=== PATIENT | female | born 1945 | race Caucasian/White ===

== ENCOUNTER 2023-07-22 08:53 | Outpatient (AMB) | payer MEDICARE, SELFPAY ==
--- NOTE | 2023-07-22 08:57 | A.OFFVIS_ITS ---
Intake Vital Signs 3 07/22/23 09:00 Height 5 ft Weight 134 lb BMI 26.2 BP 118/68 Blood Pressure Location Rt brachial Position Sitting Pulse 77 Pulse Source Pulse Oximeter Pulse Oximetry (%) 97 Intake Visit Reasons: Shortness of breath on exertion Medical Facilities Section Director Required: No Robotic Machine Tender Production: Robotic Machine Tender Production offered & declined Accompanied by: Daughter Allergies No Known Allergies Allergy (Verified 07/22/23 09:05) Medication List - Last Reconciled 07/22/23 by Kassandra Tapia LPN amlodipine 10 mg PO DAILY aspirin (Adult Low Dose Aspirin) 81 mg PO DAILY azelastine 1 spray intranasal BID cholecalciferol (vitamin D3) 25 mcg PO DAILY citalopram 40 mg PO DAILY losartan 100 mg PO DAILY wejetaunldhm-lmpglbeu-segpmd 1 tab PO DAILY HPI Shortness of breath on exertion 2 HPI0 Details Lesly is a pleasant 78 year old female, former minimal smoker with less than 2 pack year history, with underlying raynaud's, chronic hoarseness, dysphagia, and anxiety. She was referred by PCP for pulmonary evaluation. She reports chronic dry cough with hoarseness for the past two years. She also reports choking with eating. She has been evaluated by ENT and GI, with unremarkable workup, including MBSS. She has been trialing PPIs with minimal improvement in symptoms. She does continue to report heartburn, sour taste and regurgitation, however reports infrequent. She also reports dyspnea on exertion with occasional wheezing. She is not on any respiratory medications. Recent CXR revealed LLL atelectasis, report below. She denies any pertinent family history. She denies any occupational exposures. She denies any allergies. She denies post nasal drip. [facility] Social History (Updated 07/22/23 @ 09:08 by Kassandra Tapia LPN) Patient Tobacco Use Status: Never used Tobacco Review of Systems Const Denies chills, Denies excessive sweating, Denies fever(s), Denies headache(s) and Denies night sweats Eyes Denies dry eyes, Denies irritation and Denies itchy eyes ENT Reports Normal hearing present and Denies headache(s) Card Denies chest pain, Denies chest pain at rest, Denies chest pain with activity, Denies claudication, Denies leg edema, Reports dyspnea, Reports dyspnea on exertion, Denies orthopnea and Denies paroxysmal nocturnal dyspnea Resp Denies change in phlegm color, Denies chest congestion, Reports cough, Denies excessive phlegm production, Denies pain on inspiration, Denies pain with cough, Reports dyspnea, Reports dyspnea on exertion, Denies stridor and Denies wheezing Musc Denies myalgias Neuro Reports Normal hearing present and Denies headache(s) Endo Denies excessive sweating Jason/Lymph Denies lymphadenopathy Aller/Immun Denies itchy eyes, Denies seasonal rhinorrhea and Denies wheezing Physical Exam Vital Signs: Last Vital Signs Pulse 77 07/22/23 09:00 BP 118/68 07/22/23 09:00 Pulse Ox 97 07/22/23 09:00 BMI result Body Mass Index 26.2 Const Other: hoarse voice General: cooperative, healthy appearing, comfortable, no acute distress, well developed and alert Orientation/consciousness: patient oriented x3 Limitations: no limitations HEENT Head: Yes normal to inspection, Yes normocephalic and Yes atraumatic Ears: hearing grossly normal bilaterally and external ears normal Eyes General: appearance normal, both eyes and all related structures Eyelids: Yes eyelids normal Sclerae: sclerae normal EOM: EOMs intact bilaterally Neck Neck: Yes normal visual inspection and Yes no lymphadenopathy Lymphatic: no lymphadenopathy noted Chest Chest palpation & inspection: normal inspection of the chest Resp Effort & Inspection: normal respiratory effort, able to speak in complete sentences, no audible wheezes, Actively coughing Quality: dry, no stridor, not tachypneic, no tripod positioning and no use of accessory muscles Auscultation: rhonchi and wheezes Cardio Jugular venous distension: no JVD Rate: regular rate Rhythm: regular rhythm Skin Other: warm, dry General skin exam: no rashes or lesions noted Neuro General: patient oriented x3 Cranial nerves: Yes Normal hearing present Cognition (Neuro): normal cognition Gait exam (Neuro): Normal gait present Extrem General: Yes normal to inspection, Yes capillary refill normal, Yes no clubbing, cyanosis or edema and Yes no pedal edema Psych Appearance: grossly normal and well kempt Speech and movement: Normal speech and movement present and Clear speech present Affect: normal affect Attitude: cooperative Thought process: Normal thought process present Thought content: Normal thought content present Insight: Good insight present (Psych) Judgement: Good judgement present (Psych) Office Procedures Nebulizer Treatment Nebulizer Treatment [id number]/MDI RX initial, or Nebulizer Subsequent Treatment Office Meds ipratropium 0.5 mg-albuterol 3 mg (2.5 mg base)/3 mL nebulization noe Performing Provider: Donna Domingo NP Performing Location: [facility] [place] [facility] Administered by: Kassandra Tapia LPN on 07/22/23 09:35 2 Dose Route Admin Location Dispensed Lot Number Expiration Date [facility] Dyno Technician 3 mL inhalation 3 mL [id number] 03/07/25 64322-206-44 Open Learning Results Reviewed Results Reviewed: Assessment & Plan Assessment & Plan (1) Chronic cough: Code(s): R05.3 - Chronic cough (2) Dyspnea on exertion: Code(s): R06.09 - Other forms of dyspnea Plan Lesly's symptoms are likely multifactorial with pulmonary and GI etiologies. Will send for PFT and chest CT to thoroughly evaluate chronic cough and dyspnea. On exam, moderate wheezing and rhonchi appreciated. Mildly improved with nebulizer in office. Will send doxycycline and prednisone today. She is aware to call if symptoms do not improve. Will also empirically trial Breo. Reviewed importance of good oral hygiene. All questions were answered and patient is in agreement of plan. Orders: Orders 2 AMB Nebulizer Treatment Today R05.3 - Chronic cough Medications: New 2 doxycycline hyclate 100 mg PO BID 20 caps 0RF albuterol sulfate 90 mcg/actuation 2 puffs inhalation Q4-6H PRN 1 ea 3RF shortness of breath or wheezing inhalational spacing device (Space Chamber) As directed 1 ea 0RF fluticasone furoate-vilanterol 100-25 mcg/dose (Breo Ellipta) 1 inh inhalation DAILY 60 ea 3RF prednisone 40 mg (2 x 20 mg) PO DAILY 10 tabs 0RF Coding Level of Care Code New Pt Level 4 (18190) Diagnoses Chronic cough R05.3 Dyspnea on exertion R06.09 CPT Codes Nebulizer Treatment - Nebulizer Treatment, initial or subsequent: 29813- Nebulizer/MDI RX initial, or Nebulizer Subsequent Treatment ([id number])
[2023-07-22 09:00] VITALS: BP 118/68; PULSE 77; O2SAT 97; BMI 26.2
== END 2023-07-22 10:12 | disposition home or self-care (01) ==
PROVIDERS: PCP Family Medicine; Visit Provider Nurse Practitioner Family
DX: R05.3 Chronic cough (principal); R06.09 Other forms of dyspnea
CPT/HCPCS: 99204

== ENCOUNTER → 2023-07-22 08:53 | Outpatient (BNVA) | payer MEDICARE, SELFPAY | PROVIDERS: PCP Family Medicine; Visit Provider Nurse Practitioner Family | DX: R05.3 Chronic cough (principal); R06.09 Other forms of dyspnea | CPT/HCPCS: 94640; 99202 ==

== ENCOUNTER 2023-08-11 08:42 | Outpatient (REF) | payer MEDICARE, SELFPAY ==
[2023-08-11 07:32] VITALS: PULSE 68; RESP 16; O2SAT 96
--- NOTE | 2023-08-11 16:34 | PFT_ITS ---
Flows: FEV1: 83 % of predicted at 1.47 L FVC: 103 % of predicted at 2.37 L FEV1/FVC: 62 % Bronchodilator response: Absent Volumes: No lung volumes measurements available secondary to a technical issue. Diffusion capacity: Mildly decreased Impression: Mild obstructive ventilatory defect with no bronchodilator response. No lung volumes measurements available secondary to a technical issue. Decreased diffusion capacity suggests emphysema. MTDD
== END 2023-08-11 08:43 | disposition home or self-care (01) ==
LOC: HO.RESP 08:42
PROVIDERS: PCP Family Medicine; Visit Provider Nurse Practitioner Family
DX: R06.09 Other forms of dyspnea (principal)
CPT/HCPCS: 94010; 94640; 94727; 94729

== ENCOUNTER → 2023-08-11 16:34 | Outpatient (BNV) | payer MEDICARE, SELFPAY | PROVIDERS: PCP Family Medicine; Visit Provider Internal Medicine Pulmonary Disease | DX: R06.09 Other forms of dyspnea (principal) | CPT/HCPCS: 94060; 94729 ==

== ENCOUNTER 2023-09-02 09:45 | Outpatient (AMB) | payer MEDICARE, SELFPAY ==
--- NOTE | 2023-09-02 09:41 | MHC.OFFVIS ---
Intake Vital Signs 09/02/23 09:48 Height 5 ft Weight 138 lb BMI 26.9 BP 124/64 Blood Pressure Location Rt brachial Position Sitting Pulse 75 Pulse Source Pulse Oximeter Pulse Oximetry (%) 97 Oxygen Delivery Method Room Air Intake Visit Reasons: Shortness of breath Database Admin Required: No Folder And Notcher: Folder And Notcher offered & declined Accompanied by: Daughter Allergies No Known Allergies Allergy (Verified 09/02/23 09:54) Medication List - Last Reconciled 09/02/23 by Kassandra Tapia LPN albuterol sulfate 90 mcg/actuation 2 puffs inhalation Q4-6H PRN amlodipine 10 mg PO DAILY aspirin (Adult Low Dose Aspirin) 81 mg PO DAILY azelastine 1 spray intranasal BID cholecalciferol (vitamin D3) 25 mcg PO DAILY citalopram 40 mg PO DAILY fluticasone furoate-vilanterol 100-25 mcg/dose (Breo Ellipta) 1 inh inhalation DAILY inhalational spacing device (Space Chamber) As directed losartan 100 mg PO DAILY xmvqzfulxcdo-rtmrfszo-uoljwg 1 tab PO DAILY HPI Shortness of breath HPI Details Lesly is a pleasant 78 year old female, former minimal smoker with less than 2 pack year history, with underlying raynaud's, chronic hoarseness, dysphagia, and anxiety. She reports chronic dry cough with hoarseness for the past two years. She also reports choking with eating. She has been evaluated by ENT and GI, with unremarkable workup, including MBSS. She has been trialing PPIs with minimal improvement in symptoms. She also reports dyspnea on exertion with occasional wheezing. At the last visit, she was given doxycycline and prednisone for bronchitic symptoms. She was also started on Breo. Today she presents to review PFT and response to Breo. She reports significant improvement symptoms since doxycycline, no longer with productive cough. However she continues with wheezing and dyspnea. She has not started Breo as she wanted to wait for PFT results. She has also been evaluated by thoracic surgery for the moderate hernia found on prior imaging and has a follow-up in October to discuss possible surgical intervention. She has an appointment at the end of September for both chest and abdominal CT. [facility] Social History (Updated 09/02/23 @ 09:56 by Kassandra Tapia LPN) Patient Tobacco Use Status: Never used Tobacco Review of Systems Const Denies chills, Denies excessive sweating, Denies fever(s), Denies headache(s) and Denies night sweats Eyes Denies dry eyes, Denies irritation and Denies itchy eyes ENT Reports Normal hearing present, Denies headache(s), Denies nasal congestion, Denies nasal discharge, Denies post nasal drip and Denies sore throat Card Denies chest pain, Denies chest pain at rest, Denies chest pain with activity, Denies claudication, Denies leg edema, Denies orthopnea and Denies paroxysmal nocturnal dyspnea Resp Denies chest congestion, Denies excessive phlegm production, Denies pain on inspiration, Denies pain with cough and Denies stridor Musc Denies myalgias Neuro Reports Normal hearing present and Denies headache(s) Endo Denies excessive sweating Jason/Lymph Denies lymphadenopathy Aller/Immun Denies itchy eyes and Denies seasonal rhinorrhea Physical Exam Vital Signs: Last Vital Signs Pulse 75 09/02/23 09:48 BP 124/64 09/02/23 09:48 Pulse Ox 97 09/02/23 09:48 Oxygen Delivery Method Room Air 09/02/23 09:48 BMI result Body Mass Index 26.9 Const General: cooperative, healthy appearing, comfortable, no acute distress, well developed and alert Orientation/consciousness: patient oriented x3 Limitations: no limitations HEENT Head: Yes normal to inspection, Yes normocephalic and Yes atraumatic Ears: hearing grossly normal bilaterally and external ears normal Eyes General: appearance normal, both eyes and all related structures Eyelids: Yes eyelids normal Sclerae: sclerae normal EOM: EOMs intact bilaterally Neck Neck: Yes normal visual inspection and Yes no lymphadenopathy Lymphatic: no lymphadenopathy noted Chest Chest palpation & inspection: normal inspection of the chest Resp Other: rhonchi and faint expiratory wheezes throughout, improved with duoneb Effort & Inspection: normal respiratory effort, able to speak in complete sentences, no audible wheezes, no stridor, not tachypneic, no tripod positioning and no use of accessory muscles Cardio Jugular venous distension: no JVD Rate: regular rate Rhythm: regular rhythm Skin Other: warm, dry General skin exam: no rashes or lesions noted Neuro General: patient oriented x3 Cranial nerves: Yes Normal hearing present Cognition (Neuro): normal cognition Gait exam (Neuro): Normal gait present Extrem General: Yes normal to inspection, Yes capillary refill normal, Yes no clubbing, cyanosis or edema and Yes no pedal edema Psych Appearance: grossly normal and well kempt Speech and movement: Normal speech and movement present and Clear speech present Affect: normal affect Attitude: cooperative Thought process: Normal thought process present Thought content: Normal thought content present Insight: Good insight present (Psych) Judgement: Good judgement present (Psych) Office Procedures Nebulizer Treatment Nebulizer Treatment 62532-Veuaqwenl/MDI RX initial, or Nebulizer Subsequent Treatment Office Meds ipratropium 0.5 mg-albuterol 3 mg (2.5 mg base)/3 mL nebulization soln Performing Provider: Donna Domingo NP Performing Location: [facility] [place] [facility] Administered by: Kassandra Tapia LPN on 09/02/23 10:45 Dose Route Admin Location Dispensed Lot Number Expiration Date [employer] Supervisor 3 mL inhalation 3 mL [id number] 04/07/25 06288-340-62 IPexpert Assessment & Plan Assessment & Plan (1) COPD (chronic obstructive pulmonary disease): Code(s): J44.9 - Chronic obstructive pulmonary disease, unspecified (2) Chronic cough: Code(s): R05.3 - Chronic cough (3) Dyspnea on exertion: Code(s): R06.09 - Other forms of dyspnea Plan Reviewed PFT which revealed mild obstructive ventilatory defect with no bronchodilator response. No lung volumes measurements available secondary to a technical issue. Decreased diffusion capacity suggestive of emphysema. On exam, wheezing and rhonchi appreciated. Moderately improved with nebulizer in office. Will give nebulizer for home use. Will also send for CXR and prednisone today. She is aware to call if symptoms do not improve. All questions were answered and patient is in agreement of plan. Orders: Orders XR chest 2V Today R05.3 - Chronic cough AMB Nebulizer Treatment Today R05.3 - Chronic cough, R06.09 - Other forms of dyspnea Medications: New ipratropium-albuterol 0.5 mg-3 mg(2.5 mg base)/3 mL 3 mL inhalation BID PRN 90 mL 0RF wheezing prednisone see taper instructions; 40 mg Daily x3 days, 30 mg daily x3 days, 20 mg daily x3 days, 10 mg daily x3 days 10 mg PO DIRECTED 30 tabs 0RF Coding Level of Care Code Est Pt Level 4 (85931) Diagnoses COPD (chronic obstructive pulmonary disease) J44.9 Chronic cough R05.3 Dyspnea on exertion R06.09 CPT Codes Nebulizer Treatment - Nebulizer Treatment, initial or subsequent: 27371-Denkemgqu/MDI RX initial, or Nebulizer Subsequent Treatment ([id number])
[2023-09-02 09:48] VITALS: BP 124/64; PULSE 75; O2SAT 97; BMI 26.9
== END 2023-09-02 10:48 | disposition home or self-care (01) ==
PROVIDERS: PCP Family Medicine; Visit Provider Nurse Practitioner Family
DX: J44.9 Chronic obstructive pulmonary disease, unspecified (principal); R05.3 Chronic cough; R06.09 Other forms of dyspnea
CPT/HCPCS: 99214

== ENCOUNTER → 2023-09-02 09:45 | Outpatient (BNVA) | payer MEDICARE, SELFPAY | PROVIDERS: PCP Family Medicine; Visit Provider Nurse Practitioner Family | DX: J44.9 Chronic obstructive pulmonary disease, unspecified (principal); R05.3 Chronic cough; R06.09 Other forms of dyspnea | CPT/HCPCS: 94640; 99212 ==

== ENCOUNTER 2023-09-15 08:58 | Outpatient (AMB) | payer MEDICARE, SELFPAY ==
[2023-09-15 08:59] VITALS: BP 130/64; PULSE 79; O2SAT 98; BMI 27.3
--- NOTE | 2023-09-15 08:59 | A.OFFVIS_ITS ---
Intake Vital Signs 09/15/23 08:59 Height 5 ft Weight 140 lb BMI 27.3 BP 130/64 Blood Pressure Location Rt brachial Position Sitting Pulse 79 Pulse Oximetry (%) 98 Oxygen Delivery Method Room Air Intake Visit Reasons: shortness of breath Director Of In Service Education Required: No Engineering Systems Analyst: Engineering Systems Analyst offered & declined Accompanied by: Daughter Allergies No Known Allergies Allergy (Verified 09/15/23 09:04) Medication List - Last Reconciled 09/15/23 by Kassandra Tapia LPN albuterol sulfate 90 mcg/actuation 2 puffs inhalation Q4-6H PRN amlodipine 10 mg PO DAILY aspirin (Adult Low Dose Aspirin) 81 mg PO DAILY azelastine 1 spray intranasal BID cholecalciferol (vitamin D3) 25 mcg PO DAILY citalopram 40 mg PO DAILY fluticasone furoate-vilanterol 100-25 mcg/dose (Breo Ellipta) 1 inh inhalation DAILY inhalational spacing device (Space Chamber) As directed ipratropium-albuterol 0.5 mg-3 mg(2.5 mg base)/3 mL 3 mL inhalation BID PRN losartan 100 mg PO DAILY nsastalkoava-geuhibuq-gjyzjj 1 tab PO DAILY HPI shortness of breath HPI Details Lesly is a pleasant 78 year old female, former minimal smoker with less than 2 pack year history, with underlying raynaud's, chronic hoarseness, dysphagia, and anxiety. She reports chronic dry cough with hoarseness for the past two years. She also reports choking with eating. She has been evaluated by ENT and GI, with unremarkable workup, including MBSS. She has been trialing PPIs with minimal improvement in symptoms. At the last visit, patient with wheezing on exam and dyspnea. She was placed on prednisone as well as started Breo, reporting significant improvement in symptoms. Of note, she has also been evaluated by thoracic surgery for the moderate hernia found on prior imaging and has a follow-up in October to discuss possible surgical intervention. She has an appointment at the end of September for both chest and abdominal CT. [facility] Social History (Updated 09/15/23 @ 09:05 by Kassandra Tapia LPN) Patient Tobacco Use Status: Never used Tobacco Review of Systems Const Denies chills, Denies excessive sweating, Denies fever(s), Denies headache(s) and Denies night sweats Eyes Denies dry eyes, Denies irritation and Denies itchy eyes ENT Reports Normal hearing present, Denies headache(s), Denies nasal congestion, Denies nasal discharge, Denies post nasal drip and Denies sore throat Card Denies chest pain, Denies chest pain at rest, Denies chest pain with activity, Denies claudication, Denies leg edema, Denies dyspnea, Denies dyspnea on exertion, Denies orthopnea and Denies paroxysmal nocturnal dyspnea Resp Denies chest congestion, Denies cough, Denies excessive phlegm production, Denies pain on inspiration, Denies pain with cough, Denies dyspnea, Denies dyspnea on exertion, Denies stridor and Denies wheezing Musc Denies myalgias Neuro Reports Normal hearing present and Denies headache(s) Endo Denies excessive sweating Jason/Lymph Denies lymphadenopathy Aller/Immun Denies itchy eyes, Denies seasonal rhinorrhea and Denies wheezing Physical Exam Vital Signs: Last Vital Signs Pulse 79 09/15/23 08:59 BP 130/64 09/15/23 08:59 Pulse Ox 98 09/15/23 08:59 Oxygen Delivery Method Room Air 09/15/23 08:59 BMI result Body Mass Index 27.3 Const General: cooperative, healthy appearing, comfortable, no acute distress, well developed and alert Orientation/consciousness: patient oriented x3 Limitations: no limitations HEENT Head: Yes normal to inspection, Yes normocephalic and Yes atraumatic Ears: hearing grossly normal bilaterally and external ears normal Eyes General: appearance normal, both eyes and all related structures Eyelids: Yes eyelids normal Sclerae: sclerae normal EOM: EOMs intact bilaterally Neck Neck: Yes normal visual inspection and Yes no lymphadenopathy Lymphatic: no lymphadenopathy noted Chest Chest palpation & inspection: normal inspection of the chest Resp Effort & Inspection: normal respiratory effort, able to speak in complete sentences, no audible wheezes, no cough, no stridor, not tachypneic, no tripod p ositioning and no use of accessory muscles Auscultation: clear to auscultation bilaterally Cardio Jugular venous distension: no JVD Rate: regular rate Rhythm: regular rhythm Skin Other: warm, dry General skin exam: no rashes or lesions noted Neuro General: patient oriented x3 Cranial nerves: Yes Normal hearing present Cognition (Neuro): normal cognition Gait exam (Neuro): Normal gait present Extrem General: Yes normal to inspection, Yes capillary refill normal, Yes no clubbing, cyanosis or edema and Yes no pedal edema Psych Appearance: grossly normal and well kempt Speech and movement: Normal speech and movement present and Clear speech present Affect: normal affect Attitude: cooperative Thought process: Normal thought process present Thought content: Normal thought content present Insight: Good insight present (Psych) Judgement: Good judgement present (Psych) Assessment & Plan Assessment & Plan (1) COPD (chronic obstructive pulmonary disease): Code(s): J44.9 - Chronic obstructive pulmonary disease, unspecified (2) Chronic cough: Code(s): R05.3 - Chronic cough (3) Dyspnea on exertion: Code(s): R06.09 - Other forms of dyspnea Plan Lesly presents for close follow up, at last visit, rhonchi and wheezing appreciated with increased dyspnea. Patient was placed on prednisone and started Breo, reporting significant improvement in symptoms. She report using nebulizer infrequently since starting Breo. All questions were answered and patient is in agreement of plan. Will follow up in [address] results and continued response to Breo. Coding Level of Care Code Est Pt Level 3 (49159) Diagnoses COPD (chronic obstructive pulmonary disease) J44.9 Chronic cough R05.3 Dyspnea on exertion R06.09
== END 2023-09-15 09:19 | disposition home or self-care (01) ==
PROVIDERS: PCP Family Medicine; Visit Provider Nurse Practitioner Family
DX: J44.9 Chronic obstructive pulmonary disease, unspecified (principal); R05.3 Chronic cough; R06.09 Other forms of dyspnea
CPT/HCPCS: 99213

== ENCOUNTER → 2023-09-15 08:58 | Outpatient (BNVA) | payer MEDICARE, SELFPAY | PROVIDERS: PCP Family Medicine; Visit Provider Nurse Practitioner Family | DX: J44.9 Chronic obstructive pulmonary disease, unspecified (principal); R05.3 Chronic cough; R06.09 Other forms of dyspnea | CPT/HCPCS: 99212 ==

== ENCOUNTER 2023-10-06 07:57 | Outpatient (REF) | payer MEDICARE, SELFPAY ==
--- NOTE | ~2023-10-06 | CT_ITS ---
EXAMINATION: CT CHEST WITH CONTRAST CT ABDOMEN WITH CONTRAST CLINICAL INFORMATION: Paraesophageal hernia. COMPARISON: No pertinent prior studies are available for comparison. TECHNIQUE: Multidetector volumetric imaging was performed from the thoracic inlet through the iliac crests following administration of 65 mL of Omnipaque-350. Sagittal and coronal reformatted images were obtained on the technologist's workstation. This CT examination was performed using dose optimization techniques as appropriate, variously including the following: *Automated exposure control *Adjustment of mA and/or kV according to patient size (this includes techniques or standardized protocols for targeted exams where dose is matched to indication/reason for exam; i.e. extremities or head) *Use of iterative reconstruction technique DLP: 100.00 mGy-cm (Chest) 165.00 mGy-cm (Abdomen) FINDINGS: CHEST: Lungs: Some minimal emphysematous changes are present. Bronchial thickening is noted. Bibasilar atelectasis is present. Small perifissural right middle lobe lymph node is seen measuring 3 mm (5:80). No suspicious lung mass is seen. Mediastinum: The heart size is normal. The central vascular structures are unremarkable. No hilar or mediastinal lymphadenopathy. Hiatal hernia as described below. Coronary Artery Calcium: None. Pericardium/Pleura: No significant effusion. No pleural mass or thickening. Chest Wall/Axilla: Unremarkable ABDOMEN/PELVIS: Peritoneal Space: No significant free air or free fluid identified. Liver, Gallbladder, Biliary Tree: The liver is normal in size, shape, and attenuation. No focal hepatic lesion or biliary ductal dilatation is present. The gallbladder is unremarkable with no evidence of radiopaque gallstones, gallbladder wall thickening, or obvious pericholecystic inflammatory changes. Pancreas: Unremarkable. Spleen: Unremarkable. Adrenal Glands: Unremarkable. Kidneys and Ureters: The kidneys are normal in size, shape, and attenuation. No hydronephrosis, hydroureter, or calculi seen. No perinephric stranding. Multiple bilateral benign Bosniak class I renal cysts are noted, the largest measuring 5.1 cm at the left lower pole which require no additional imaging or follow-up. No solid renal masses are seen. Gastrointestinal Tract: There is a paraesophageal hiatal hernia present with the GE junction near the diaphragmatic hiatus. Precise location is not well seen because of lack of oral contrast media. The visualized small and large bowel are unremarkable. The appendix is none included on this study. Abdominal Wall: No significant hernia is appreciated. Lymph Nodes: Retroperitoneal lymphadenopathy. Some kamron changes are seen. Vascular: Calcific atherosclerotic changes are present in the aorta and iliac vessels. There is no evidence of an abdominal aortic aneurysm.. The IVC appears unremarkable. OSSEUS STRUCTURES: Marked degenerative changes are noted in the spine. There is a stepwise retrolisthesis of L1 upon L2 and L2 upon L3. No bony destructive lesions are seen. CT/CT abdomen w IV con IMPRESSION: 1. Paraesophageal hiatal hernia. 2. Incidental note made of mild emphysema, bronchial thickening, benign Bosniak class I renal cysts which need no additional imaging or follow-up, degenerative changes in the spine and other findings described above. Fleischner guidelines were followed.
[2023-10-06] MEDS: iohexoL 350 MG/ML 100 ML INFUS..BTL IV (09:46)
[2023-10-06 13:50] LABS: Creatinine POC 0.7 mg/dL (0.5-1.4); GFR POC > 60
== END 2023-10-06 07:58 | disposition home or self-care (01) ==
LOC: HO.CT 07:57
PROVIDERS: PCP Family Medicine; Visit Provider Surgery
DX: K44.9 Diaphragmatic hernia without obstruction or gangrene (principal)
CPT/HCPCS: 71260; 74160; 82565; Q9967

== ENCOUNTER 2023-12-29 11:24 | Outpatient (AMB) | payer MEDICARE, SELFPAY ==
--- NOTE | 2023-12-29 11:25 | A.OFFVIS_ITS ---
Vital Signs 12/29/23 11:26 Height 5 ft Weight 140 lb 4 oz BMI 27.4 BP 112/68 Blood Pressure Location Rt brachial Position Sitting Pulse 73 Pulse Source Pulse Oximeter Pulse Oximetry (%) 95 Oxygen Delivery Method Room Air Intake Visit Reasons: shortness of breath Allergies No Known Allergies Allergy (Verified 12/29/23 11:30) HPI HPI shortness of breath : Details: Lesly is a pleasant 78 year old female, former minimal smoker with less than 2 pack year history, with underlying raynaud's, chronic hoarseness, dysphagia, and anxiety. She reports chronic dry cough with hoarseness for the past two years. She also reports choking with eating. She has been evaluated by ENT and GI, with unremarkable workup, including MBSS. She has been trialing PPIs with minimal improvement in symptoms. Patient has been doing well on Breo since last visit and has had notable control of respiratory symptoms. She reports intermittent dry cough otherwise denies significant dyspnea, wheezing or chest tightness. She denies any recent evaluation at urgent care or hospitalizations since last visit. Of note, she was evaluated by thoracic surgery who recommended against surgery for paraesophageal hernia. CT chest performed in September, report below. Today she reports some sinus congestion, denies sinus pain/pressure or discolored sputum. Denies respiratory symptoms. FORMERLY [facility] Social History (Updated 12/29/23 @ 11:30 by Yara Nieto [facility]) Patient Tobacco Use Status: Former Tobacco user Review of Systems Const Denies chills, Denies excessive sweating, Denies fever(s), Denies headache(s) and Denies night sweats Eyes Denies dry eyes, Denies irritation and Denies itchy eyes ENT Reports Normal hearing present, Denies headache(s), Denies nasal congestion, Denies nasal discharge, Denies post nasal drip and Denies sore throat Card Denies chest pain, Denies chest pain at rest, Denies chest pain with activity, Denies claudication, Denies leg edema, Denies orthopnea and Denies paroxysmal nocturnal dyspnea Resp Denies chest congestion, Denies excessive phlegm production, Denies pain on inspiration, Denies pain with cough, Denies stridor and Denies wheezing Musc Denies myalgias Neuro Reports Normal hearing present and Denies headache(s) Endo Denies excessive sweating Jason/Lymph Denies lymphadenopathy Aller/Immun Denies itchy eyes, Denies seasonal rhinorrhea and Denies wheezing Physical Exam Vital Signs: Last Vital Signs Pulse 73 12/29/23 11:26 BP 112/68 12/29/23 11:26 Pulse Ox 95 12/29/23 11:26 Oxygen Delivery Method Room Air 12/29/23 11:26 BMI result Body Mass Index 27.4 Const General: cooperative, healthy appearing, comfortable, no acute distress, well developed and alert Orientation/consciousness: patient oriented x3 Limitations: no limitations HEENT Head: Yes normal to inspection, Yes normocephalic and Yes atraumatic Ears: hearing grossly normal bilaterally and external ears normal Eyes General: appearance normal, both eyes and all related structures Eyelids: Yes eyelids normal Sclerae: sclerae normal EOM: EOMs intact bilaterally Neck Neck: Yes normal visual inspection and Yes no lymphadenopathy Lymphatic: no lymphadenopathy noted Chest Chest palpation & inspection: normal inspection of the chest Resp Effort & Inspection: normal respiratory effort, able to speak in complete sentences, no audible wheezes, no cough, no stridor, not tachypneic, no tripod positioning and no use of accessory muscles Auscultation: clear to auscultation bilaterally Cardio Jugular venous distension: no JVD Rate: regular rate Rhythm: regular rhythm Skin Other: warm, dry General skin exam: no rashes or lesions noted Neuro General: patient oriented x3 Cranial nerves: Yes Normal hearing present Cognition (Neuro): normal cognition Gait exam (Neuro): Normal gait present Extrem General: Yes normal to inspection, Yes capillary refill normal, Yes no clubbing, cyanosis or edema and Yes no pedal edema Psych Appearance: grossly normal and well kempt Speech and movement: Normal speech and movement present and Clear speech present Affect: normal affect Attitude: cooperative Thought process: Normal thought process present Thought content: Normal thought content present Insight: Good insight present (Psych) Judgement: Good judgement present (Psych) Results Reviewed Results Reviewed: [address] [address] [address] Scan Report Signed Patient: Lesly Ponce MR#: [id number] : 1945 Acct:[id number] Age/Sex: 78 / F ADM Date: 10/06/23 Loc: HO.CT Attending Dr: Iman Jackson MD Ordering Physician: IMAN JACKSON MD Date of Service: 10/06/23 Procedure(s): CT chest w IV con Accession Number(s): [id number] cc: Parisa Curtis; IMAN JACKSON MD~ EXAMINATION: CT CHEST WITH CONTRAST CT ABDOMEN WITH CONTRAST CLINICAL INFORMATION: Paraesophageal hernia. COMPARISON: No pertinent prior studies are available for comparison. TECHNIQUE: Multidetector volumetric imaging was performed from the thoracic inlet through the iliac crests following administration of 65 mL of Omnipaque-350. Sagittal and coronal reformatted images were obtained on the technologist's workstation. This CT examination was performed using dose optimization techniques as appropriate, variously including the following: *Automated exposure control *Adjustment of mA and/or kV according to patient size (this includes techniques or standardized protocols for targeted exams where dose is matched to indication/reason for exam; i.e. extremities or head) *Use of iterative reconstruction technique DLP: 100.00 mGy-cm (Chest) 165.00 mGy-cm (Abdomen) FINDINGS: CHEST: Lungs: Some minimal emphysematous changes are present. Bronchial thickening is noted. Bibasilar atelectasis is present. Small perifissural right middle lobe lymph node is seen measuring 3 mm (5:80). No suspicious lung mass is seen. Mediastinum: The heart size is normal. The central vascular structures are unremarkable. No hilar or mediastinal lymphadenopathy. Hiatal hernia as described below. Coronary Artery Calcium: None. Pericardium/Pleura: No significant effusion. No pleural mass or thickening. Chest Wall/Axilla: Unremarkable ABDOMEN/PELVIS: Peritoneal Space: No significant free air or free fluid identified. Liver, Gallbladder, Biliary Tree: The liver is normal in size, shape, and attenuation. No focal hepatic lesion or biliary ductal dilatation is present. The gallbladder is unremarkable with no evidence of radiopaque gallstones, gallbladder wall thickening, or obvious pericholecystic inflammatory changes. Pancreas: Unremarkable. Spleen: Unremarkable. Adrenal Glands: Unremarkable. Kidneys and Ureters: The kidneys are normal in size, shape, and attenuation. No hydronephrosis, hydroureter, or calculi seen. No perinephric stranding. Multiple bilateral benign Bosniak class I renal cysts are noted, the largest measuring 5.1 cm at the left lower pole which require no additional imaging or follow-up. No solid renal masses are seen. Gastrointestinal Tract: There is a paraesophageal hiatal hernia present with the GE junction near the diaphragmatic hiatus. Precise location is not well seen because of lack of oral contrast media. The visualized small and large bowel are unremarkable. The appendix is none included on this study. Abdominal Wall: No significant hernia is appreciated. Lymph Nodes: Retroperitoneal lymphadenopathy. Some kamron changes are seen. Vascular: Calcific atherosclerotic changes are present in the aorta and iliac vessels. There is no evidence of an abdominal aortic aneurysm.. The IVC appears unremarkable. OSSEUS STRUCTURES: Marked degenerative changes are noted in the spine. There is a stepwise retrolisthesis of L1 upon L2 and L2 upon L3. No bony destructive lesions are seen. CT/CT chest w IV con IMPRESSION: 1. Paraesophageal hiatal hernia. 2. Incidental note made of mild emphysema, bronchial thickening, benign Bosniak class I renal cysts which need no additional imaging or follow-up, degenerative changes in the spine and other findings described above. Fleischner guidelines were followed. Dictated By: Serge Dang MD Signed By: <Electronically signed by Serge Dang MD in OV> 10/13/23 0941 DD/ 0943 TD/TT: Information Analyst: BRENDA Assessment & Plan Assessment & Plan (1) COPD (chronic obstructive pulmonary disease): Code(s): J44.9 - Chronic obstructive pulmonary disease, unspecified Category: Medical (2) Chronic cough: Code(s): R05.3 - Chronic cough Category: Medical (3) Dyspnea on exertion: Code(s): R06.09 - Other forms of dyspnea Category: Medical Plan Lesly reports good control of respiratory symptoms with Breo, infrequently requiring albuterol. Advised to continue. All questions were answered and patient is in agreement of plan. Will follow up in 3 -6 months or sooner if needed. Medications: Refilled fluticasone furoate-vilanterol 100-25 mcg/dose (Breo Ellipta) 1 inh inhalation DAILY 60 ea 3RF Coding Level of Care Code Est Pt Level 3 (44330) Diagnoses COPD (chronic obstructive pulmonary disease) J44.9 Chronic cough R05.3 Dyspnea on exertion R06.09
[2023-12-29 11:26] VITALS: BP 112/68; PULSE 73; O2SAT 95; BMI 27.4
== END 2023-12-29 11:52 | disposition home or self-care (01) ==
PROVIDERS: PCP Family Medicine; Visit Provider Nurse Practitioner Family
DX: J44.9 Chronic obstructive pulmonary disease, unspecified (principal); R05.3 Chronic cough; R06.09 Other forms of dyspnea
CPT/HCPCS: 99213

== ENCOUNTER → 2023-12-29 11:24 | Outpatient (BNVA) | payer MEDICARE, SELFPAY | PROVIDERS: PCP Family Medicine; Visit Provider Nurse Practitioner Family | DX: J44.9 Chronic obstructive pulmonary disease, unspecified (principal); R05.3 Chronic cough; R06.09 Other forms of dyspnea | CPT/HCPCS: 99212 ==

== ENCOUNTER 2024-07-06 14:09 | Outpatient (AMB) | payer MEDICARE, SELFPAY ==
--- NOTE | 2024-07-06 14:11 | A.OFFVIS_ITS ---
Vital Signs 07/06/24 14:12 Weight 144 lb BP 128/70 Blood Pressure Location Lt brachial Position Sitting Pulse 81 Pulse Source Pulse Oximeter Pulse Oximetry (%) 96 Oxygen Delivery Method Room Air Intake Visit Reasons: shortness of breath Allergies No Known Allergies Allergy (Verified 07/06/24 14:15) Medication List - Last Reconciled 07/06/24 by Susan Fontenot LPN albuterol sulfate 90 mcg/actuation 2 puffs inhalation Q4-6H PRN amlodipine 10 mg PO DAILY aspirin (Adult Low Dose Aspirin) 81 mg PO DAILY azelastine 1 spray intranasal BID cholecalciferol (vitamin D3) 25 mcg PO DAILY citalopram 40 mg PO DAILY fluticasone furoate-vilanterol 100-25 mcg/dose (Breo Ellipta) 1 inh inhalation DAILY inhalational spacing device (Space Chamber) As directed ipratropium-albuterol 0.5 mg-3 mg(2.5 mg base)/3 mL 3 mL inhalation BID PRN losartan 100 mg PO DAILY [id number] 1 tab PO DAILY HPI HPI shortness of breath: Details: Lesly is a pleasant 79 year old female, former minimal smoker with less than 2 pack year history, with underlying raynaud's, chronic hoarseness, dysphagia, and anxiety. She reports chronic dry cough with hoarseness as well as choking with eating. She has been evaluated by ENT and GI, with unremarkable workup, including MBSS. At baseline she reports suboptimal effect with Breo 100 mcg, continues with dyspnea on exertion. She did note improvement in cough and wheezing. She has albuterol MDI/neb however uses infrequently. In the past, she was evaluated by thoracic surgery who recommended against surgery for paraesophageal hernia, however she does report increase in reflux, denies abdominal pain. We did discuss the possibility of the hernia enlarging and need for repeat evaluation however will await chest CT results. She denies any visits to urgent care or hospitalizations related to respiratory distress since the last visit. [facility] Social History (Updated 12/29/23 @ 11:30 by Yara Nieto CMA) Patient Tobacco Use Status: Former Tobacco user Review of Systems Const Denies chills, Denies excessive sweating, Denies fever(s), Denies headache(s) and Denies night sweats Eyes Denies dry eyes, Denies irritation and Denies itchy eyes ENT Reports Normal hearing present, Denies headache(s), Denies nasal congestion, Denies nasal discharge, Denies post nasal drip and Denies sore throat Card Denies chest pain, Denies chest pain at rest, Denies chest pain with activity, Denies claudication, Denies leg edema, Reports dyspnea on exertion, Denies orthopnea and Denies paroxysmal nocturnal dyspnea Resp Denies chest congestion, Reports cough, Denies excessive phlegm production, Denies pain on inspiration, Denies pain with cough, Reports dyspnea on exertion, Denies stridor and Denies wheezing Musc Denies myalgias Neuro Reports Normal hearing present and Denies headache(s) Endo Denies excessive sweating Jason/Lymph Denies lymphadenopathy Aller/Immun Denies itchy eyes, Denies seasonal rhinorrhea and Denies wheezing Physical Exam Vital Signs: Last Vital Signs Pulse 81 07/06/24 14:12 BP 128/70 07/06/24 14:12 Pulse Ox 96 07/06/24 14:12 Oxygen Delivery Method Room Air 07/06/24 14:12 Const General: cooperative, healthy appearing, comfortable, no acute distress, well developed and alert Orientation/consciousness: patient oriented x3 Limitations: no limitations HEENT Head: Yes normal to inspection, Yes normocephalic and Yes atraumatic Ears: hearing grossly normal bilaterally and external ears normal Eyes General: appearance normal, both eyes and all related structures Eyelids: Yes eyelids normal Sclerae: sclerae normal EOM: EOMs intact bilaterally Neck Neck: Yes normal visual inspection and Yes no lymphadenopathy Lymphatic: no lymphadenopathy noted Chest Chest palpation & inspection: normal inspection of the chest Resp Effort & Inspection: normal respiratory effort, able to speak in complete sentences, no audible wheezes, no cough, no stridor, not tachypneic, no tripod positioning and no use of accessory muscles Auscultation: clear to auscultation bilaterally Cardio Jugular venous distension: no JVD Rate: regular rate Rhythm: regular rhythm Skin Other: warm, dry General skin exam: no rashes or lesions noted Neuro General: patient oriented x3 Cranial nerves: Yes Normal hearing present Cognition (Neuro): normal cognition Gait exam (Neuro): Normal gait present Extrem General: Yes normal to inspection, Yes capillary refill normal, Yes no clubbing, cyanosis or edema and Yes no pedal edema Psych Appearance: grossly normal and well kempt Speech and movement: Normal speech and movement present and Clear speech present Affect: normal affect Attitude: cooperative Thought process: Normal thought process present Thought content: Normal thought content present Insight: Good insight present (Psych) Judgement: Good judgement present (Psych) Results Reviewed Results Reviewed: [address] [address] [address] Scan Report Signed Patient: Lesly Ponce MR#: [id number] : 1945 Acct:[id number] Age/Sex: 78 / F ADM Date: 10/06/23 Loc: HO.CT Attending Dr: Iman Jackson MD Ordering Physician: IMAN JACKSON MD Date of Service: 10/06/23 Procedure(s): CT chest w IV con Accession Number(s): [id number] cc: Parisa Curtis; IMAN JACKSON MD~ EXAMINATION: CT CHEST WITH CONTRAST CT ABDOMEN WITH CONTRAST CLINICAL INFORMATION: Paraesophageal hernia. COMPARISON: No pertinent prior studies are available for comparison. TECHNIQUE: Multidetector volumetric imaging was performed from the thoracic inlet through the iliac crests following administration of 65 mL of Omnipaque-350. Sagittal and coronal reformatted images were obtained on the technologist's workstation. This CT examination was performed using dose optimization techniques as appropriate, variously including the following: *Automated exposure control *Adjustment of mA and/or kV according to patient size (this includes techniques or standardized protocols for targeted exams where dose is matched to indication/reason for exam; i.e. extremities or head) *Use of iterative reconstruction technique DLP: 100.00 mGy-cm (Chest) 165.00 mGy-cm (Abdomen) FINDINGS: CHEST: Lungs: Some minimal emphysematous changes are present. Bronchial thickening is noted. Bibasilar atelectasis is present. Small perifissural right middle lobe lymph node is seen measuring 3 mm (5:80). No suspicious lung mass is seen. Mediastinum: The heart size is normal. The central vascular structures are unremarkable. No hilar or mediastinal lymphadenopathy. Hiatal hernia as described below. Coronary Artery Calcium: None. Pericardium/Pleura: No significant effusion. No pleural mass or thickening. Chest Wall/Axilla: Unremarkable ABDOMEN/PELVIS: Peritoneal Space: No significant free air or free fluid identified. Liver, Gallbladder, Biliary Tree: The liver is normal in size, shape, and attenuation. No focal hepatic lesion or biliary ductal dilatation is present. The gallbladder is unremarkable with no evidence of radiopaque gallstones, gallbladder wall thickening, or obvious pericholecystic inflammatory changes. Pancreas: Unremarkable. Spleen: Unremarkable. Adrenal Glands: Unremarkable. Kidneys and Ureters: The kidneys are normal in size, shape, and attenuation. No hydronephrosis, hydroureter, or calculi seen. No perinephric stranding. Multiple bilateral benign Bosniak class I renal cysts are noted, the largest measuring 5.1 cm at the left lower pole which require no additional imaging or follow-up. No solid renal masses are seen. Gastrointestinal Tract: There is a paraesophageal hiatal hernia present with the GE junction near the diaphragmatic hiatus. Precise location is not well seen because of lack of oral contrast media. The visualized small and large bowel are unremarkable. The appendix is none included on this study. Abdominal Wall: No significant hernia is appreciated. Lymph Nodes: Retroperitoneal lymphadenopathy. Some kamron changes are seen. Vascular: Calcific atherosclerotic changes are present in the aorta and iliac vessels. There is no evidence of an abdominal aortic aneurysm.. The IVC appears unremarkable. OSSEUS STRUCTURES: Marked degenerative changes are noted in the spine. There is a stepwise retrolisthesis of L1 upon L2 and L2 upon L3. No bony destructive lesions are seen. CT/CT chest w IV con IMPRESSION: 1. Paraesophageal hiatal hernia. 2. Incidental note made of mild emphysema, bronchial thickening, benign Bosniak class I renal cysts which need no additional imaging or follow-up, degenerative changes in the spine and other findings described above. Fleischner guidelines were followed. Assessment & Plan Assessment & Plan (1) COPD (chronic obstructive pulmonary disease): Code(s): J44.9 - Chronic obstructive pulmonary disease, unspecified Category: Medical (2) Chronic cough: Code(s): R05.3 - Chronic cough Category: Medical (3) Dyspnea on exertion: Code(s): R06.09 - Other forms of dyspnea Category: Medical (4) Pulmonary nodule: Code(s): R91.1 - Solitary pulmonary nodule Category: Medical Plan Lesly reports subtopimal effect with Breo 100 mcg, will increase to Breo 200mcg. If she continues with poor response will consider adding Incruse. Prior chest CT 09/2023 revealed 3 mm RML pulmonary nodule, will repeat chest Ct 09/2024 to assess stability. All questions were answered and patient is in agreement of plan. Will follow up to review CT results and assess response to increased Breo or sooner if needed. Orders: Orders CT chest wo IV con 2 Months R91.1 - Solitary pulmonary nodule Medications: New fluticasone furoate-vilanterol 200-25 mcg/dose (Breo Ellipta) 1 inh inhalation DAILY 60 ea 4RF Discontinued fluticasone furoate-vilanterol 100-25 mcg/dose (Breo Ellipta) Discontinued Reason: Patient Completed Course 1 inh inhalation DAILY 60 ea 3RF Coding Level of Care Code Est Pt Level 4 (28507) Diagnoses COPD (chronic obstructive pulmonary disease) J44.9 Chronic cough R05.3 Dyspnea on exertion R06.09 Pulmonary nodule R91.1
[2024-07-06 14:12] VITALS: BP 128/70; PULSE 81; O2SAT 96
--- OUTSIDE RECORDS SUMMARY | 2024-07-06 16:27 | XMS_ITS | Data Portability ---
Author Organization [facility], FORMERLY [facility] Address [address] [place] [address] Care Team Providers Care Proof Operator Name Role Phone AARTI CAMARA Phys. Med. & Rehab Unavailable PARISA MALLORY Primary Care Provide r LAMAR ESPINOZA Investigator Welfare Unavailable [facility] Ice Cream Vendor Assessment Encounter Date Assessment Date Assessment LastModified by Organization Details LastModified Time 01/15/2023 01/15/2023 We completed your Medicare Wellness exam today. This was an opportunity to assess your overall well being including your ability to care for yourself, your mobility, memory, mental health, as well as your safety. With advancing age, it is important to assign someone in your life as your Health Care Proxy (HCP). This person should know what is important to you and what your wishes are for medical procedures if you cannot communicate your wishes yourself (severe illness, unconsciousness ). We discussed having a completed Health Care Proxy form today. In addition, today we started a conversation about your End of Life wishes. These conversations will continue over the years. Please consider reading the book, Being Mortal by Moises Da Silva to help frame future conversations. We discussed the purpose of a MOLST form (Medical Orders for Life Sustaining Treatment) and completed this form if appropriate per your wishes. Vision and Hearing are senses that are critically important as we age. When impaired, they can contribute to memory loss, falls, and make it harder to drive, talk to family and friends, and engage in the world. Please get your vision checked yearly and your hearing checked when you start to notice hearing loss. We discussed approaches to lowering your risk of heart disease and stroke . Your blood pressure . Your cholesterol . We discussed cancer screening you may need as well as vaccines to prevent infections. Colon Cancer : Your risk of colon cancer is . Due for colorectal screening:. If you are not planning to have a colonoscopy please screen with stool cards yearly. Breast Cancer : Breast Cancer Screening (mammography). Next mammogram due: . Cervical Cancer Screening (pap test). Next pap due: . Influenza Vaccine : Flu shot yearly. Tetanus Vaccine : Every 10 years. Due: . The following vaccines are available from your pharmacy: Pneumonia Vaccine : PCV20: once after age 65. Shingles Vaccine : 2 shots after age 50. Covid Vaccine : Make sure you have received the most up to date covid vaccine. Your personal health goal for the year is: [email or web address] Not available 01/15/2023 11:01:40 01/21/2024 01/21/2024 We completed your Medicare Wellness exam today. This was an opportunity to assess your overall well being including your ability to care for yourself, your mobility, memory, mental health, as well as your safety. With advancing age, it is important to assign someone in your life as your Health Care Proxy (HCP). This person should know what is important to you and what your wishes are for medical procedures if you cannot communicate your wishes yourself (severe illness, unconsciousness ). We discussed having a completed Health Care Proxy form today. In addition, today we started a conversation about your End of Life wishes. These conversations will continue over the years. Please consider reading the book, Being Mortal by Moises Da Silva to help frame future conversations. We discussed the purpose of a MOLST form (Medical Orders for Life Sustaining Treatment) and completed this form if appropriate per your wishes. Vision and Hearing are senses that are critically important as we age. When impaired, they can contribute to memory loss, falls, and make it harder to drive, talk to family and friends, and engage in the world. Please get your vision checked yearly and your hearing checked when you start to notice hearing loss. We discussed approaches to lowering your risk of heart disease and stroke . Your blood pressure is higher than goal consider losing weight and lowering your salt intake. Your cholesterol is at goal. We discussed cancer screening you may need as well as vaccines to prevent infections. Colon Cancer : Your risk of colon cancer is higher than average due to family history. Due for colorectal screenin. If you are not planning to have a colonoscopy please screen with stool cards yearly. Breast Cancer : Breast Cancer Screening (mammography). Next mammogram due: 2023. Cervical Cancer Screening (pap test). Next pap due: not needed. Prostate Cancer : PSA testing for ages 55-69 risks and benefits discussed . Influenza Vaccine : Flu shot yearly. Tetanus Vaccine : Every 10 years. Due: 2030. The following vaccines are available from your pharmacy: Pneumonia Vaccine : PCV20: once after age 65. Shingles Vaccine : 2 shots after age 50. Shingrix too expensive. Covid Vaccine : Make sure you have received the most up to date covid vaccine. Your personal health goal for the year is: [email or web address] Not available 01/21/2024 08:20:36 Plan of Treatment Reminders Order Date Submit Date Provider Last Modified By Organization Details Last Modified Time Details Appointments LAB Follow -Up 2024 07:30A M [facility] Not available Not available Not available Mammog sylvester, Screen ing 2024 09:00A M [facility] Mammography Not available Not available Not available Follow Up, 15 2024 08:15A M Parisa Hall MD Not available Not available Not available LAB Follow -Up 2024 07:30A M [facility] Lab Not available Not available Not available Wellne ss Visit 30 2024 08:30A M Parisa Hall MD Not available Not available Not available Lab BMP, serum or plasma 2023 024 [facility], [address] [place] [address], [id number], 07/16/2023 12:35:27 CBC 2023 024 [facility], [address] [place] [address], [id number], 07/16/2023 12:24:04 TSH, serum or plasma 2023 024 [facility], [address] [place] [address], [id number], 07/16/2023 14:07:17 Referral otolar yngolo gist referr al - chroni c hoarse ness since Jan 2019 pls see HPI 2022 023 ARIANNA Abraham MD, [address] [place], [address], 08/18/2022 12:26:24 pulmon ologis t referr al - chroni c cough x 2 yrs, alread y saw ENT, starte d with hoarse ness and on PPI, also saw GI 2023 024 [email or web address] Byron Harvey, [address] , [place], [address], 07/21/2023 08:34:22 otolar yngolo gist referr al - chroni c sinus infect ions, known to you pls eval and tx 2023 024 [email or web address] Raciel Tubbs MD, [address] [place], [address], 01/21/2024 16:36:20 Procedures None record ed. Surgeries None record ed. Imaging XR, chest - ronchi and wheezi ng, hx of chroni c cough and exerti onal dyspne a 2023 024 [facility] (Imaging), [address] , [place], [address], 07/16/2023 11:28:39 Medication Orders ipratr opium bromid e 21 mcg (0.03 %) nasal spray 2022 023 [id number], [address], [place], [id number], 07/16/2023 09:58:05 omepra zole 20 mg capsul e,angelique yed releas e [address] [facility], [address], [place], [id number], 07/16/2023 09:58:24 amoxic illin 875 mg-pot assium clavul anate 125 mg tablet [address] [facility] #[id number], [address], [place], [id number], 07/16/2023 09:57:40 Lexapr o 5 mg tablet 2023 [facility], [facility], [place], [address], 01/21/2024 08:28:27 Augmen tin 875 mg-125 mg tablet [address] [facility] #44618, [address], [place], [id number], 01/21/2024 08:28:34 Patient TargetsNo targets recorded. Patient Instructions Encounter Date Encounter Id Patient Instructions Last Modified By Organization Details Last Modified Time 07/15/2022 [id number] CCM: The provider and patient discussed the Chronic Care Management program, including the services provided, and any fees associated with them. Pt declined. After a discussion of treatment and medication options, which included consideration of the best practices in medicine, a medical plan was provided. The patient's opinions and concerns were included in this treatment plan and goal. HTN - at goal of less than 130/80 per the AHA guidelines. Continue meds and f/u in 6 mos. Discussed labs, kidney function and electrolytes normal. Slightly elevated fasting sugar and will continue to monitor. If persistent will get A1c. Continue low salt diet of less than 1500 mg of sodium per day. The [employer] Heart Association (AHA) recommends 30 minutes of moderate physical activity 5 days a week. A Mediterranean type of diet and a plant based diet is recommended, review the website: OldLinkipt.org. * referral back to ENT - and pt will choose another provider - reviewed consult note and Stroboscopy for further evaluation was recommended. * trial of ipratropium nasal spray twice a day and see if that helps with congestion; stop flonase * resume prilosec twice a day; avoid acidic and caffeinated beverages, avoid spicy foods, elevate head of bed 45 degrees, no food intake 4 hrs prior to bedtime, * stop famotidine * pt informed that chronic use of prilosec can decrease calcium absorption into her bones and can cause osteoporosis * pt will also resume OTC anti-histamine and see if that improves her symptoms. [email or web address] Not available 07/15/2022 21:04:59 01/15/2023 [id number] advance directives: care instructions [email or web address] Not available 01/15/2023 11:47:13 preventing falls: care instructions [email or web address] Not available 01/15/2023 11:47:13 hearing loss: care instructions [email or web address] Not available 01/15/2023 11:47:13 well visit, over 65: care instructions [email or web address] Not available 01/15/2023 11:47:13 After a discussion of treatment and medication options, which included consideration of the best practices in medicine, a medical plan was provided. The patient's opinions and concerns were included in this treatment plan and goal. * Maintain 1200 mg of calcium from food sources daily, * Take vitamin D 1675-2994 units daily to help absorption of calcium into your bones * Use sunblock consistently * Review the website: CoachMePlus.Vitasoft to get more information on the Mediterranean diet - a heart healthy eating plan * Immunizations up to date; COVID vaccine booster recommended. Prevnar 20 discussed, completed pneumonia 13 and 23. * The current guidelines from the [employer] Heart Association is moderate aerobic physical activity about 30 minutes for 5 days of the week. Walking at a moderately fast pace, as tolerated. Try to build muscle mass. This will help maintain bone strength and support your joints. * Pap smear not indicated due to age. * Mammogram guidelines discussed, no family history or personal history of abnormal mammograms, prefers to stop now at age 77. * Your bone density is due 2025 - normal in 2016. * Colonoscopy is due 2026. Normal in year 2021. * Health care proxy discussed and no changes. * MOLST form discussed. No changes. * Wellness Visit in 1 year * See your dentist at least twice a year. * Get your vision checked at least once every 2 years. * Discussed labs - all WNL * appt iw ENT in 2 weeks. HTN - at goal of less than 130/80 per the AHA guidelines. Continue meds and f/u in 6 mos. Discussed labs, sugar and kidney function and electrolytes normal. Discussed cholesterol. Your LDL (bad type of cholesterol) is at goal. Continue low salt diet of less than 1500 mg of sodium per day. The [employer] Heart Association (AHA) recommends 30 minutes of moderate physical activity 5 days a week. A Mediterranean type of diet and a plant based diet is recommended, review the website: Redeemr. * offered pelvic floor therapy for intermittent urinary incontinence. pt declines for now. manageable with a underwear liner * depression 0 well managed with meds, f/u in 6 mos * sinusitis - more than 1 week, started on Augmentin and has a scheduled appt with ENT. * heartburn - managed with omeprazole daily, has tried to taper, but gets symptomatic. [email or web address] Not available 01/18/2023 17:51:36 07/16/2023 [id number] pulmonary function test* - w/o ABG's ~ chronic cough with dyspnea on exertion, non smoker, [email or web address] Not available 07/20/2023 11:15:23 After a discussion of treatment and medication options, which included consideration of the best practices in medicine, a medical plan was provided. The patient's opinions and concerns were included in this treatment plan and goal. HTN - at goal of less than 130/80 per the AHA guidelines. Continue meds and f/u in 6 mos. Due for labs today Continue low salt diet of less than 1500 mg of sodium per day. The [employer] Heart Association (AHA) recommends 30 minutes of moderate physical activity 5 days a week. A Mediterranean type of diet and a plant based diet is recommended, review the website: Redeemr. Use this CDC link for proper use of inhaler: https://www.cdc. gov/asthma/inhal er_video/default .htm referral to pulmonology and pt will schedule will get CXR and labs today - if all normal will get echocardiogram. ([facility] or [facility]) [email or web address] Not available 07/16/2023 10:29:26 01/21/2024 [id number] CCM: The provider and patient discussed the Chronic Care Management program, including the services provided, and any fees associated with them. Declined [email or web address] Not available 01/21/2024 08:29:39 02/15/2024 [id number] Verify medications patient is taking:{{ taking medications as listed on medication list*}} Remind patient of purpose of medications.{{ p urpose of medications is to lower elevated blood pressure*}} Confirm compliance {{taking medications daily as prescribed* taki ng medications twice daily as prescribed ebony ng doses}} Obstacles to taking medications as prescribed{{mónica nces time of doses forgetfuln ess side effects n/a#}} Side effects of medication {{lightheadednes s cough fatigue erectile dysfunction n/a# }} Was BP cuff brought to visit {{yes no*}} Was patient able to demonstrate effective use {{yes no n/a#}} Reviewed use of BP cuff {{yes* no}} Sent script for BP Cuff {{yes no* NA}} Reviewed consequences of chronically elevated BP, ways to improve BP, salt reduction, DASH diet, alcohol use reduction. Referral {{not needed* nutritio n smoking counseling nutri tion and smoking counseling}} Teach back {{Patient able to identify three things that elevate BP-smoking, alcohol , salt contents of food* patient not able to identify 3 causes of elevated BP}} Teach back {{patient knows BP goal* Patient does not know BP goal}} Teach back {{patient knows the name of BP medication(s)* P atient does not know the name of BP medication(s)}} Hand out {{patient offered handout* }} On a scale of 1-10 how important is it for you to have your blood pressure at goal {{1 2 3 4 5 6 7 8 9 10*}} caffeine Intake: yes 2 cups of coffee Bladder empty: yes Last dose of amlodipine 10mg, Losartan 100mg : This morning at 7:30am Average BP : 120/69, pulse 70 Three readings: 117/70, 121/70, 123/68 No changes to medication at this time. Pt does not need refills. Pt verbalized understanding of handouts. Will f/u with PCP on 07/25/24. NL [email or web address] Not available 02/15/2024 09:10:50 Reason for Referral Profiler Referral fo r Chronic hoarseness chronic hoarseness since Jan 2019 pls see HPI Referring Physician: Parisa Hall, Family Medicine, Encounter Date: 07/15/2022 Ice Cream Vendor Referral for C hronic cough chronic cough x 2 yrs, already saw ENT, started with hoarseness and on PPI, also saw GI Referring Physician: Parisa Hall, [facility], Encounter Date: 07/16/2023 Profiler Referral fo r Chronic recurrent sinusitis chronic sinus infections, known to you pls eval and tx Referring Physician: Parisa Hall, [facility], Encounter Date: 01/21/2024 Results Created Date Observation Date Name Description Value Unit Range Abnormal Flag Note LastModifiedBy Organization Detail LastModifiedTime 07/08/19 23 07/08/2022 BASIC METAB OLIC PANEL glucose 106 mg/dL 70-100 high Not Available [address], [address], 07/08/2022 10:54:27 07/08/19 23 07/08/2022 BASIC METAB OLIC PANEL BUN 18 mg/dL 7-18 Not Available [address], [address], 07/08/2022 10:54:27 07/08/19 23 07/08/2022 BASIC METAB OLIC PANEL creatinine 0.9 mg/dL 0.8-1. 3 Not Available [address], [address], 07/08/2022 10:54:27 07/08/19 23 07/08/2022 BASIC METAB OLIC PANEL B/C 20.0 ratio Not Available [address], [address], 07/08/2022 10:54:27 07/08/19 23 07/08/2022 BASIC METAB OLIC PANEL GFR >=60ML /MIN mL/mi n normal >=60m L/min - Ruby l or midly reduc ed <60mL /min- Decre ased kidne y funct ion <15mL /min - Kidne y failu re [facility] calcu lates estim ated Glome rular Filtr ation Rate (eGFR ) using the Chron ic Kidne y Disea se Epide miolo gy Colla borat ion (CKD- EPI) Equat ion (Dez r et. al 2020) as recom sb d by the Natio nal Kidne y Found ation . eGFR is based on age, serum creat inine , and sex. CKD-E PI does not calcu late eGFR by race, does not apply to child michelle (age <18 years ), and shoul d not be used in pregn fadi. Not Available [address], [address], 07/08/2022 10:54:27 07/08/19 23 07/08/2022 BASIC METAB OLIC PANEL sodium 141 mmol/ L 136-14 5 Not Available [address], [address], 07/08/2022 10:54:27 07/08/19 23 07/08/2022 BASIC METAB OLIC PANEL potassium 5.2 mmol/ L 3.5-5. 1 high Not Available [address], [address], 07/08/2022 10:54:27 07/08/19 23 07/08/2022 BASIC METAB OLIC PANEL chloride 104 mmol/ L 96-107 Not Available [address], [address], 07/08/2022 10:54:27 07/08/19 23 07/08/2022 BASIC METAB OLIC PANEL anion gap 10.2 5.0-15 .0 Not Available [address], [address], 07/08/2022 10:54:27 07/08/19 23 07/08/2022 BASIC METAB OLIC PANEL CO2 27 mmol/ L 21-32 Not Available [address], [address], 07/08/2022 10:54:27 07/08/19 23 07/08/2022 BASIC METAB OLIC PANEL calcium 9.7 mg/dL 8.5-10 .3 Not Available [address], [address], 07/08/2022 10:54:27 01/08/20 23 01/07/2023 BASIC METAB OLIC PANEL glucose 95 mg/dL 70-100 Not Available [address], [address], 01/07/2023 14:03:48 01/08/20 23 01/07/2023 BASIC METAB OLIC PANEL BUN 16 mg/dL 7-18 Not Available [address], [address], 01/07/2023 14:03:48 01/08/2001/07/2023 BASIC METAB OLIC PANEL creatinine 0.8 mg/dL 0.8-1. 3 Not Available [address], [address], 01/07/2023 14:03:48 01/08/2001/07/2023 BASIC METAB OLIC PANEL B/C 20.0 ratio Not Available [address], [address], 01/07/2023 14:03:48 01/08/2001/07/2023 BASIC METAB OLIC PANEL GFR >=60ML /MIN mL/mi n normal >=60m L/min - Ruby l or midly reduc ed <60mL /min- Decre ased kidne y funct ion <15mL /min - Kidne y failu re [facility] calcu lates estim ated Glome rular Filtr ation Rate (eGFR ) using the Chron ic Kidne y Disea se Epide miolo gy Colla borat ion (CKD- EPI) Equat ion (Dez orourke et. al 2020) as recom sb d by the Natio nal Kidne y Found ation . eGFR is based on age, serum creat inine , and sex. CKD-E PI does not calcu late eGFR by race, does not apply to child michelle (age <18 years ), and shoul d not be used in pregn fadi. Not Available [address], [address], 01/07/2023 14:03:48 01/08/20 23 01/07/2023 BASIC METAB OLIC PANEL sodium 140 mmol/ L 136-14 5 Not Available [address], [address], 01/07/2023 14:03:48 01/08/20 23 01/07/2023 BASIC METAB OLIC PANEL potassium 5.0 mmol/ L 3.5-5. 1 Not Available [address], [address], 01/07/2023 14:03:48 01/08/20 23 01/07/2023 BASIC METAB OLIC PANEL chloride 104 mmol/ L 96-107 Not Available [address], [address], 01/07/2023 14:03:48 01/08/20 23 01/07/2023 BASIC METAB OLIC PANEL anion gap 9.2 5.0-15 .0 Not Available [address], [address], 01/07/2023 14:03:48 01/08/20 23 01/07/2023 BASIC METAB OLIC PANEL CO2 27 mmol/ L 21-32 Not Available [address], [address], 01/07/2023 14:03:48 01/08/20 23 01/07/2023 BASIC METAB OLIC PANEL calcium 9.3 mg/dL 8.5-10 .3 Not Available [address], [address], 01/07/2023 14:03:48 01/08/20 23 01/07/2023 LIPID PANEL cholesterol 197 mg/dL <200 mg/dl Avis able 200-2 39 mg/dl Borde rline High >240 mg/dl High Not Available [address], [address], 01/07/2023 14:03:49 01/08/20 23 01/07/2023 LIPID PANEL triglyceride s 49 mg/dL <150 mg/dL Ruby l 150-1 99 mg/dL Borde rline High 200-4 99 mg/dL High >500 mg/dL Very High Not Available [address], [address], 01/07/2023 14:03:49 01/08/20 23 01/07/2023 LIPID PANEL direct HDL 77 mg/dL <40 mg/dl - Major Risk for CHD >60 mg/dl - Negat alton Risk for CHD Not Available [address], [address], 01/07/2023 14:03:49 01/08/20 23 01/07/2023 DIREC T LDL direct LDL 93 mg/dL RISK CATEG ORY LDL GOAL _ CHD or CHD Risk Equiv alent s <100 mg/dl (10-y ear risk >20%) 2+ Risk Facto rs <130 mg/dl (10-y ear risk <= 20%) 0-1 Risk Facto r? <160 mg/dl ? Almos t all peopl e with 0-1 risk facto r have a 10 year risk <10%, thus 10 year risk asses ment in peopl e with 0-1 risk facto r is not neces rex. Not Available [address], [address], 01/07/2023 14:03:51 02/18/20 23 02/17/2023 CBC WBC 5.17 K/? ? ?L 3.98-1 0.04 Not Available [address], [address], 02/17/2023 12:33:28 02/18/20 23 02/17/2023 CBC RBC 4.31 M/? ? ?L 3.93-5 .22 Not Available [address], [address], 02/17/2023 12:33:28 02/18/20 23 02/17/2023 CBC HGB 13.3 g/dL 11.2-1 5.7 Not Available [address], [address], 02/17/2023 12:33:28 02/18/20 23 02/17/2023 CBC HCT 40.2 % 34.1-4 4.9 Not Available [address], [address], 02/17/2023 12:33:28 02/18/20 23 02/17/2023 CBC MCV 93.3 fL 79.4-9 4.8 Not Available [address], [address], 02/17/2023 12:33:28 02/18/20 23 02/17/2023 CBC MCH 30.9 pg 25.6-3 2.2 Not Available [address], [address], 02/17/2023 12:33:28 02/18/20 23 02/17/2023 CBC MCHC 33.1 g/dL 32.2-3 5.5 Not Available [address], [address], 02/17/2023 12:33:28 02/18/20 23 02/17/2023 CBC plt 221 K/? ? ?L 182-36 9 Not Available [address], [address], 02/17/2023 12:33:28 02/18/20 23 02/17/2023 CBC MPV 10.1 fL 9.4-12 .3 Not Available [address], [address], 02/17/2023 12:33:28 02/18/20 23 02/17/2023 CBC neut% 46.6 % 34.0-7 1.1 Not Available [address], [address], 02/17/2023 12:33:28 02/18/20 23 02/17/2023 CBC neut# 2.41 1.56-6 .13 Not Available [address], [address], 02/17/2023 12:33:28 02/18/2002/17/2023 CBC lymph % 37.7 % 19.3-5 1.7 Not Available [address], [address], 02/17/2023 12:33:28 02/18/2002/17/2023 CBC lymph # 1.95 K/? ? ?L 1.18-3 .74 Not Available [address], [address], 02/17/2023 12:33:28 02/18/2002/17/2023 CBC mono% 9.7 % 4.7-12 .5 Not Available [address], [address], 02/17/2023 12:33:28 02/18/2002/17/2023 CBC mono# 0.50 0.24-0 .56 Not Available [address], [address], 02/17/2023 12:33:28 02/18/2002/17/2023 CBC eo% 5.0 % 0.7-5. 8 Not Available [address], [address], 02/17/2023 12:33:28 02/18/2002/17/2023 CBC eo# 0.26 0.04-0 .36 Not Available [address], [address], 02/17/2023 12:33:28 02/18/2002/17/2023 CBC baso% 0.8 % 0.1-1. 2 Not Available [address], [address], 02/17/2023 12:33:28 02/18/2002/17/2023 CBC baso# 0.04 0.00-0 .08 Not Available [address], [address], 02/17/2023 12:33:28 02/18/2002/17/2023 CBC RDW-CV 12.8 % 11.7-1 4.4 Not Available [address], [address], 02/17/2023 12:33:28 02/18/2002/17/2023 CBC Ig% 0.200 % 0.000- 1.500 Ig % >0.5 Indic ates possi ble Left Shift Not Available [address], [address], 02/17/2023 12:33:28 02/18/2002/17/2023 CBC Ig# 0.010 0.000- 0.093 Not Available [address], [address], 02/17/2023 12:33:28 02/18/2002/17/2023 CBC NRBC% 0.0 % 0.0-0. 2 Not Available [address], [address], 02/17/2023 12:33:28 02/18/2002/17/2023 CBC NRBC# 0.000 0.000- 0.012 Not Available [address], [address], 02/17/2023 12:33:28 02/18/20 23 02/18/2023 IMMUN OGLOB ULIN E immunoglobul in E 19 kU/L <or=11 4 normal Not Available [facility] [address] [place], [address], 02/18/2023 22:02:40 07/16/19 24 07/16/2023 CBC WBC 6.44 K/? ? ?L 3.98-1 0.04 Not Available [address], [address], 07/16/2023 12:24:04 07/16/19 24 07/16/2023 CBC RBC 4.08 M/? ? ?L 3.93-5 .22 Not Available [address], [address], 07/16/2023 12:24:04 07/16/19 24 07/16/2023 CBC HGB 12.7 g/dL 11.2-1 5.7 Not Available [address], [address], 07/16/2023 12:24:04 07/16/19 24 07/16/2023 CBC HCT 38.5 % 34.1-4 4.9 Not Available [address], [address], 07/16/2023 12:24:04 07/16/19 24 07/16/2023 CBC MCV 94.4 fL 79.4-9 4.8 Not Available [address], [address], 07/16/2023 12:24:04 07/16/19 24 07/16/2023 CBC MCH 31.1 pg 25.6-3 2.2 Not Available [address], [address], 07/16/2023 12:24:04 07/16/19 24 07/16/2023 CBC MCHC 33.0 g/dL 32.2-3 5.5 Not Available [address], [address], 07/16/2023 12:24:04 07/16/1907/16/2023 CBC plt 266 K/? ? ?L 182-36 9 Not Available [address], [address], 07/16/2023 12:24:04 07/16/19 24 07/16/2023 CBC MPV 9.9 fL 9.4-12 .3 Not Available [address], [address], 07/16/2023 12:24:07/16/1907/16/2023 CBC neut% 46.4 % 34.0-7 1.1 Not Available [address], [address], 07/16/2023 12:24:04 07/16/1907/16/2023 CBC neut# 2.99 1.56-6 .13 Not Available [address], [address], 07/16/2023 12:24:04 07/16/1907/16/2023 CBC lymph % 34.3 % 19.3-5 1.7 Not Available [address], [address], 07/16/2023 12:24:04 07/16/1907/16/2023 CBC lymph # 2.21 K/? ? ?L 1.18-3 .74 Not Available [address], [address], 07/16/2023 12:24:04 07/16/19 24 07/16/2023 CBC mono% 7.8 % 4.7-12 .5 Not Available [address], [address], 07/16/2023 12:24:04 07/16/19 24 07/16/2023 CBC mono# 0.50 0.24-0 .56 Not Available [address], [address], 07/16/2023 12:24:04 07/16/19 24 07/16/2023 CBC eo% 9.3 % 0.7-5. 8 high Not Available [address], [address], 07/16/2023 12:24:04 07/16/19 24 07/16/2023 CBC eo# 0.60 0.04-0 .36 high Not Available [address], [address], 07/16/2023 12:24:04 07/16/19 24 07/16/2023 CBC baso% 1.1 % 0.1-1. 2 Not Available [address], [address], 07/16/2023 12:24:04 07/16/19 24 07/16/2023 CBC baso# 0.07 0.00-0 .08 Not Available [address], [address], 07/16/2023 12:24:04 07/16/19 24 07/16/2023 CBC RDW-CV 12.7 % 11.7-1 4.4 Not Available [address], [address], 07/16/2023 12:24:04 07/16/19 24 07/16/2023 CBC Ig% 1.100 % 0.000- 1.500 Ig % >0.5 Indic ates possi ble Left Shift Not Available [address], [address], 07/16/2023 12:24:04 07/16/19 24 07/16/2023 CBC Ig# 0.070 0.000- 0.093 Not Available [address], [address], 07/16/2023 12:24:04 07/16/19 24 07/16/2023 CBC NRBC% 0.0 % 0.0-0. 2 Not Available [address], [address], 07/16/2023 12:24:04 07/16/19 24 07/16/2023 CBC NRBC# 0.000 0.000- 0.012 Not Available [address], [address], 07/16/2023 12:24:04 07/16/19 24 07/16/2023 BASIC METAB OLIC PANEL glucose 91 mg/dL 70-100 Not Available [address], [address], 07/16/2023 12:35:27 07/16/19 24 07/16/2023 BASIC METAB OLIC PANEL BUN 15 mg/dL 7-18 Not Available [address], [address], 07/16/2023 12:35:27 07/16/1907/16/2023 BASIC METAB OLIC PANEL creatinine 0.8 mg/dL 0.8-1. 3 Not Available [address], [address], 07/16/2023 12:35:27 07/16/19 24 07/16/2023 BASIC METAB OLIC PANEL B/C 18.8 ratio Not Available [address], [address], 07/16/2023 12:35:27 07/16/1907/16/2023 BASIC METAB OLIC PANEL GFR >=60ML /MIN mL/mi n normal >=60m L/min - Ruby l or midly reduc ed <60mL /min- Decre ased kidne y funct ion <15mL /min - Kidne y failu re [facility] calcu lates estim ated Glome rular Filtr ation Rate (eGFR ) using the Chron ic Kidne y Disea se Epide miolo gy Colla borat ion (CKD- EPI) Equat ion (Dez r et. al 2020) as recom sb d by the Natio nal Kidne y Found ation . eGFR is based on age, serum creat inine , and sex. CKD-E PI does not calcu late eGFR by race, does not apply to child michelle (age <18 years ), and shoul d not be used in pregn fadi. Not Available [address], [address], 07/16/2023 12:35:27 07/16/19 24 07/16/2023 BASIC METAB OLIC PANEL sodium 144 mmol/ L 136-14 5 Not Available [address], [address], 07/16/2023 12:35:27 07/16/19 24 07/16/2023 BASIC METAB OLIC PANEL potassium 4.8 mmol/ L 3.5-5. 1 Not Available [address], [address], 07/16/2023 12:35:27 07/16/19 24 07/16/2023 BASIC METAB OLIC PANEL chloride 106 mmol/ L 96-107 Not Available [address], [address], 07/16/2023 12:35:27 07/16/19 24 07/16/2023 BASIC METAB OLIC PANEL anion gap 11.7 5.0-15 .0 Not Available [address], [address], 07/16/2023 12:35:27 07/16/19 24 07/16/2023 BASIC METAB OLIC PANEL CO2 26 mmol/ L 21-32 Not Available [address], [address], 07/16/2023 12:35:27 07/16/19 24 07/16/2023 BASIC METAB OLIC PANEL calcium 9.5 mg/dL 8.5-10 .3 Not Available [address], [address], 07/16/2023 12:35:27 07/16/19 24 07/16/2023 TSH TSH 2.65 uIU/m L 0.50-6 .00 The Ameri can Colle ge of Endoc rinol ogy and Ameri can Thyro id Assoc iatio n recom mend goal TSH value s betwe en 0.4-4 .0 mIU/m L. Not Available [address], [address], 07/16/2023 14:07:17 01/14/20 24 01/14/2024 BASIC METAB OLIC PANEL glucose 82 mg/dL 70-100 Not Available [address], [address], 01/14/2024 13:53:51 01/14/20 24 01/14/2024 BASIC METAB OLIC PANEL BUN 13 mg/dL 7-18 Not Available [address], [address], 01/14/2024 13:53:51 01/14/20 24 01/14/2024 BASIC METAB OLIC PANEL creatinine 0.8 mg/dL 0.8-1. 3 Not Available [address], [address], 01/14/2024 13:53:51 01/14/20 24 01/14/2024 BASIC METAB OLIC PANEL B/C 16.3 ratio Not Available [address], [address], 01/14/2024 13:53:51 01/14/20 24 01/14/2024 BASIC METAB OLIC PANEL GFR >=60ML /MIN mL/mi n normal >=60m L/min - Ruby l or midly reduc ed <60mL /min- Decre ased kidne y funct ion <15mL /min - Kidne y failu re [facility] calcu lates estim ated Glome rular Filtr ation Rate (eGFR ) using the Chron ic Kidne y Disea se Epide miolo gy Colla borat ion (CKD- EPI) Equat ion (Dez orourke et. al 2020) as recom sb d by the Natio nal Kidne y Found ation . eGFR is based on age, serum creat inine , and sex. CKD-E PI does not calcu late eGFR by race, does not apply to child michelle (age <18 years ), and shoul d not be used in pregn fadi. Not Available [address], [address], 01/14/2024 13:53:51 01/14/20 24 01/14/2024 BASIC METAB OLIC PANEL sodium 140 mmol/ L 136-14 5 Not Available [address], [address], 01/14/2024 13:53:51 01/14/20 24 01/14/2024 BASIC METAB OLIC PANEL potassium 5.0 mmol/ L 3.5-5. 1 Not Available [address], [address], 01/14/2024 13:53:51 01/14/20 24 01/14/2024 BASIC METAB OLIC PANEL chloride 105 mmol/ L 96-107 Not Available [address], [address], 01/14/2024 13:53:51 01/14/20 24 01/14/2024 BASIC METAB OLIC PANEL anion gap 5.0 5.0-15 .0 Not Available [address], [address], 01/14/2024 13:53:51 01/14/20 24 01/14/2024 BASIC METAB OLIC PANEL CO2 30 mmol/ L 21-32 Not Available [address], [address], 01/14/2024 13:53:51 01/14/20 24 01/14/2024 BASIC METAB OLIC PANEL calcium 9.3 mg/dL 8.5-10 .3 Not Available [address], [address], 01/14/2024 13:53:51 01/14/20 24 01/14/2024 LIPID PANEL cholesterol 203 mg/dL <200 mg/dl Avis able 200-2 39 mg/dl Borde rline High >240 mg/dl High Not Available [address], [address], 01/14/2024 13:53:52 01/14/20 24 01/14/2024 LIPID PANEL triglyceride s 30 mg/dL <150 mg/dL Ruby l 150-1 99 mg/dL Borde rline High 200-4 99 mg/dL High >500 mg/dL Very High Not Available [address], [address], 01/14/2024 13:53:52 01/14/20 24 01/14/2024 LIPID PANEL direct HDL 94 mg/dL <40 mg/dl - Major Risk for CHD >60 mg/dl - Negat alton Risk for CHD Not Available [address], [address], 01/14/2024 13:53:52 01/14/20 24 01/14/2024 LDL - CALCU LATED LDL - calculated 103.0 RISK CATEG ORY LDL GOAL _ CHD or CHD Risk Equiv alent s <100 mg/dl (10-y ear risk >20%) 2+ Risk Facto rs <130 mg/dl (10-y ear risk <= 20%) 0-1 Risk Facto r? <160 mg/dl ? Almos t all peopl e with 0-1 risk facto r have a 10 year risk <10%, thus 10 year risk asses ment in peopl e with 0-1 risk facto r is not neces rex. Not Available [facility] [address], [place], [address], 01/14/2024 13:53:52 07/16/19 24 07/16/2023 XR, chest CLINIC AL HISTOR Y: Cough. Wheezi ng exerti onal dyspne a TECHNI QUE: Fronta l view and latera l view of the chest obtain ed. COMPAR GAMAL: [place] [id number] FINDIN GS: The heart is normal in size and config uratio n.Ther e is no hilar or medias tinal enlarg ement. Modera tely large hiatal hernia in the midlin e with air-fl uid level not signif icantl y change d. There is no focal lung consol idatio n or infilt rate. There is atelec tasis at the left lung base. The bony thorax is intact . IMPRES ARTUR: Left lower lobe atelec tasis. Modera tely large hiatal hernia .. Manas mccurdy Physic ginette: Jose Maria sanderson [facility] (Imaging) [address], [place], [address], 07/17/2023 13:18:12 09/03/19 24 09/03/2023 XR, chest CLINIC AL HISTOR Y: Cough. TECHNI QUE: Fronta l view and latera l view of the chest obtain ed. COMPAR GAMAL: Februa ry 2023 FINDIN GS: The heart is normal in size and config uratio n.Ther e is no hilar or medias tinal enlarg ement. Again noted is a hiatal hernia with air-fl uid level in the midlin e not signif icantl y change d. There is no focal lung consol idatio n or infilt rate. There are decrea sed linear opacit ies at the left lung base consis tent with residu al atelec tasis The bony thorax is intact . IMPRES ARTUR: Left lower lobe atelec tasis decrea sed compar ed to the prior study. Modera tely large hiatal hernia unchan ged. Manas mccurdy Physic ginette: Jose Maria [email or web address] [facility] (Imaging) [address] [place], [address], 09/04/2023 10:35:37 10/13/19 24 10/06/2023 CT, abdom en No observ ation record ed[email or web address] [address] [place], [address], 10/13/2023 09:57:04 10/13/19 24 10/06/2023 CT, chest , w/o contr ast No observ ation record ed. [facility] [address] [place], [address], 10/13/2023 09:57:05 Result Notes None recorded. Problems Name Problem SNOMED Code Status Onset Date Resolution Date Notes Provider Name and Address Organization Details Recorded Time Major depressi on, melancho lic type 814440524 Completed 03/16/2018 Removal Reason: Jose Antonio Hall MD [address] [place] [address], [phone] , [facility] 8 09:13:02 Benign essentia l hyperten artur 7690021 Completed 03/05/2012 Parisa Hall MD [address] [place] [address], [phone] , [facility] 6 11:56:07 Abnormal findings on diagnost ic imaging of breast 993895184 Active Not Available [facility] 2 19:35:25 Essentia l hyperten artur 39661576 Active Not Available [facility] 19:35:25 Anxiety state 145416807 Active Not Available [facility] 19:35:25 Raynaud' s disease 222799070 Active Not Available [facility] 19:35:25 Recurren t depressi on 115660322 Active Not Available [facility] 19:35:25 Arthriti s 7592788 Active Not Available [facility] 19:35:25 Abnormal gait 98845094 Active Not Available [facility] 19:35:25 Atrial tachycar jolanta 258754089 Active 2020 coded 12/06/2018 cardiolo gy consult. 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 on barium swallow through ENT Not Available [facility] 2 19:35:25 Chronic hoarsene ss 67873875185 05 Active 2021 Not Available [facility] 19:35:25 Family history of cancer of colon 846978626 Active 2021 Mother Not Available [facility] 19:35:25 Chronic obstruct alton pulmonar y disease 69117365 Active 2023 Parisa Hall MD [address] [place] [address], [phone] , [facility] 4 08:05:12 Bilatera l arthriti s of hands Active 2023 Parisa Hall MD [address] [place] [address], [phone] , [facility] 4 08:29:39 Problem Notes None recorded. Procedures Surgical History Date Name Laterality Status Provider Name and Address Organization Details Recorded Time 01/21/20 24 Medicare Wellness Visit completed Radha Jenkins MA [facility] 01/19/2024 16:19:16 01/16/20 23 Medicare Wellness Visit completed Dai Arnold [facility] 01/15/2023 11:01:41 01/14/20 22 Medicare Wellness Visit completed Parisa Hall MD [address] [place] [address], [phone], [facility] 01/13/2022 07:47:25 01/14/20 22 Alcohol use screening completed Parisa Hall MD [address] [place] [address], [phone], [facility] 01/13/2022 07:47:25 01/14/20 22 Cardiovascular disease risk reduction counseling completed Parisa Hall MD [address] [place] [address], [phone], [facility] 01/13/2022 07:47:25 01/11/20 22 Colonoscopy completed Parisa Hall MD [address] [place] [address], [phone], [facility] 01/13/2022 08:06:03 10/23/19 21 Medicare Wellness Visit completed Genoveva Pink [facility] 10/22/2020 08:14:28 10/23/19 21 prevention-cardiov ascular risk reduction counseling completed Genoveva Pink [facility] 10/22/2020 08:14:28 10/23/19 21 prevention-annual alcohol misuse screening completed Genoveva Pink [facility] 10/22/2020 08:14:28 10/23/19 21 Advanced Care Planning completed Parisa Hall MD [address] [place] [address], [phone], [facility] 10/22/2020 11:34:22 07/19/19 20 [facility] 11:38:49 07/19/19 20 prevention-cardiov ascular risk reduction counseling completed Abigail [facility] 07/18/2019 11:38:49 07/19/19 20 prevention-annual alcohol misuse screening [facility] 11:38:50 07/19/19 20 Medicare Risk for Falls Screen completed Francisco Williamson [facility] 07/19/2019 08:31:21 03/16/20 18 Medicare Wellness Visit completed Sanam Hand [facility] 03/16/2018 08:17:45 03/13/20 17 Medicare Wellness Visit completed Sanam Hand [facility] 03/13/2017 08:35:45 03/13/20 17 Advanced Care Planning completed Parisa Hall MD [address] [place] [address], [phone], [facility] 03/13/2017 09:15:07 05/22/20 16 Colonoscopy completed Parisa Hall MD [address] [place] [address], [phone], [facility] 05/25/2016 15:33:03 10/23/19 16 Medicare Wellness Visit completed Sanam Hand CMA [facility] 10/23/2015 10:59:33 06/23/19 15 Carpal Tunnel Surgery completed Parisa Hall MD [address] [place] [address], [phone], [facility] 06/24/2014 20:47:52 02/25/20 14 Carpal Tunnel Surgery completed Parisa Hall MD [address] [place] [address], [phone], [facility] 02/26/2014 14:05:26 07/18/19 14 Suture/staple Removal completed Parisa Hall MD [address] [place] [address], [phone], [facility] 07/18/2013 14:22:40 05/10/20 13 Medicare Wellness Visit completed Sanam Hand CMA [facility] 05/10/2013 16:19:39 07/01/19 13 Suture/staple Removal completed Parisa Hall MD [address] [place] [address], [phone], [facility] 07/01/2012 13:04:06 02/06/20 12 Medicare Wellness Visit completed Emigdio Maier LPN [facility] 02/06/2012 15:18:02 03/31/20 11 Colonoscopy completed Parisa Hall MD [address] [place] [address], [phone], [facility] 11/08/2013 11:15:30 Tonsillectomy completed Parisa Hall MD [address] [place] [address], [phone], [facility] 05/10/2013 16:44:07 Imaging Results Imaging Date Name Status LastModified by [facility] Details LastModified Time 07/16/2023 XR, chest completed [email or web address] [facility] (Imaging) [address], [place], [address], 07/17/2023 13:18:12 09/03/2023 [facility] [address], [place], [address], 09/04/2023 10:35:37 10/06/2023 CT[facility] [address] [place], [address], 10/13/2023 09:57:04 10/06/2023 CT, chest, w/o contrast completed [facility] [address] [place], [address], 10/13/2023 09:57:05 Procedure Notes None recorded. Medical Equipment None Reported. Allergies No known drug allergies Medications Name Sig Start Date Stop Date Status Note LastModified by Organization Details LastModified Time losartan 50 mg tablet TAKE 1 AND 1/2 TABLETS DAILY 09/16 completed Not Available Not Available Not Available atorvasta tin 40 mg tablet Take 1 tablet every day by oral route at bedtime for 90 days. 01/13 completed d/c per Dr Magdaleno Not Available Not Available Not Available prednison e 10 mg tablet TAKE 3 TABLETS BY MOUTH DAILY FOR 3 DAYS THEN TAKE 2 TABLETS DAILY FOR 3 DAYS THEN TAKE 1 TABLET DAILY FOR 3 DAYS 01/20 completed Not Available Not Available Not Available doxycycli ne hyclate 100 mg capsule TAKE 1 CAPSULE BY MOUTH TWICE DAILY 01/20 completed Not Available Not Available Not Available ipratropi um 0.5 mg-albute rol 3 mg (2.5 mg base)/3 mL nebulizat ion soln active Not Available Not Available Not Available citalopra m 40 mg tablet TAKE 1 TABLET DAILY 01/20 completed Not Available Not Available Not Available hydrocodo ne 5 mg-acetam inophen 325 mg tablet active Not Available Not Available Not Available Diltiazem HCl CR 300 mg capsule,e xtended release Take 1 capsule every day by oral route. 2011 active for mail away Not Available Not Available Not Available famotidin e 40 mg tablet Take 1 tablet every day by oral route for 30 days. 07/16 completed Not Available Not Available Not Available prednison e 20 mg tablet TAKE 2 TABLETS BY MOUTH DAILY 01/20 completed Not Available Not Available Not Available lorazepam 0.5 mg tablet Take 1 tablet 3 times a day by oral route as needed. 2010 active Not Available Not Available Not Avai lable Prilosec 10 mg capsule,d elayed release take 1 cap 30 min before breakfas t 2011 active Not Available Not Available Not Avai lable diltiazem CD 300 mg capsule,e xtended release 24 hr Take 1 capsule every day by oral route for 90 days. active change to amlodipi ne Not Available Not Available Not Available amlodipin e 10 mg tablet TAKE 1 TABLET DAILY active Not Available Not Available No t Available doxycycli ne monohydra te 100 mg capsule TAKE 1 CAPSULE BY MOUTH TWICE DAILY 07/16 completed Not Available Not Available Not Available lisinopri l 10 mg tablet Take 1 tablet every day by oral route for 30 days. active Not Available Not Available No t Available losartan 25 mg tablet Take 1 tablet every day by oral route for 30 days. active Not Available Not Available No t Available omeprazol e 20 mg capsule,d elayed release TAKE 1 CAPSULE BY MOUTH TWICE DAILY 07/16 completed Not Available Not Available Not Available budesonid e 0.5 mg/2 mL suspensio n for nebulizat ion active Not Available Not Available Not Available aspirin 81 mg chewable tablet Chew 1 tablet every day by oral route. active per cardiolo gy - to use lifetime Not Available Not Available Not Available monteluka st 10 mg tablet TAKE 1 TABLET BY MOUTH EVERY DAY IN THE EVENING active Not Available Not Available No t Available hydroxyzi ne HCl 25 mg tablet take 1 tablet by mouth once daily if needed 03/16 completed Not Available Not Available Not Available bisacodyl 5 mg tablet,de layed release TAKE 4 TABLETS WITH 8OZ OF WATER BY MOUTH ONCE THE DAY BEFORE PROCEDUR E 01/13 completed Not Available Not Available Not Available azelastin e 137 mcg (0.1 %) nasal spray active Not Available Not Available Not Available albuterol sulfate HFA 90 mcg/actua tion aerosol inhaler INHALE 2 PUFFS BY MOUTH EVERY 4 TO 6 HOURS NEEDED FOR SHORTNES S OF BREATH OR WHEEZING active Not Available Not Available No t Available hydroxyzi ne HCl 10 mg tablet TAKE 1 TABLET DAILY AT BEDTIME 12/29 completed not taking 0 Not Available Not Available Not Available losartan 100 mg tablet TAKE 1 TABLET DAILY 2023 active Not Available Not Available Not Avai lable fluticaso ne propionat e 50 mcg/actua tion nasal spray,vero pension instill 2 sprays into each nostril once daily 01/13 completed Not Available Not Available Not Available ipratropi um bromide 21 mcg (0.03 %) nasal spray USE 2 SPRAYS IN EACH NOSTRIL TWICE DAILY NEEDED 07/16 completed not taking 01/15/23 Not Available Not Available Not Available amoxicill in 875 mg-potass ium clavulana te 125 mg tablet Take 1 tablet every 12 hours by oral route for 5 days, for sinus infectio n. active Not Available Not Available No t Available Vitamin D3 25 mcg (1,000 unit) capsule Take 1 capsule every day by oral route. active patient reported 08/09/18 ([facility] d/c 08/06/18) Not Available Not Available Not Available Prilosec OTC 20 mg tablet,de layed release take 1 tab 30 minutes before breakfas t 2011 active Not Available Not Available Not Avai lable escitalop sylvester 5 mg tablet Take 1 tablet every day by oral route for 90 days, for anxiety and depressi on. active Not Available Not Available No t Available famotidin e 07/15 completed started by GI, no dose in notes Not Available Not Available Not Available Centrum Silver active Not Available Not Available Not Available Metamucil active Not Available Not Chaya ilable Not Available hydrocodo ne 5 mg-acetam inophen 300 mg tablet 02/06 completed Not Available Not Available Not Available peg 3350-elec trolytes 236 gram-22.7 4 gram-6.74 gram-5.86 gram solution MIX AND DRINK DIRECTED 07/15 completed Not Available Not Available Not Available Vortex [employer] Chamber USE DIRECTED active Not Available Not Available No t Available Breo Ellipta 100 mcg-25 mcg/dose powder for inhalatio n INHALE 1 PUFF BY MOUTH DAILY active Not Available Not Available No t Available Fluzone High-Dose (PF) 180 mcg/0.5 mL intramusc ular syringe inject 0.5 millilit er intramus cularly 02/06 completed Not Available Not Available Not Available Vitals Date Recorded Body height Provider Name an d Address Organization Details Last Updated DateTime 07/15/2022 152.4 cm Radha GoldenDAKSHA steel [facility] 07/15/2022 09:03:47 Date Recorded Body mass index (BMI) Body weight Provider Name and Address Organization Details Last Updated DateTime 07/15/2022 26.5 kg/m2 47663.77 g Radha Tamaninder DAKSHA [facility] 07/15/2022 09:04:02 Date Recorded Heart rate Provider Name an d Address Organization Details Last Updated DateTime 07/15/2022 76 /min Radha GoldenvincentmaninderDAKSHA [facility] 07/15/2022 09:05:26 Date Recorded Body height Provider Name an d Address Organization Details Last Updated DateTime 01/15/2023 152.4 cm Dai [facility] 01/15/2023 11:24:40 Date Recorded Body mass index (BMI) Body weight Provider Name and Address Organization Details Last Updated DateTime 01/15/2023 27 kg/m2 89732.85 g [facility] 11:24:46 Date Recorded Heart rate Provider Name an d Address Organization Details Last Updated DateTime 01/15/2023 78 /min Dai [facility] 01/15/2023 11:29:16 Date Recorded Body height Provider Name an d Address Organization Details Last Updated DateTime 07/16/2023 152.4 cm Radha TamaninderDAKSHA [facility] 07/16/2023 10:00:16 Date Recorded Body mass index (BMI) Body weight Provider Name and Address Organization Details Last Updated DateTime 07/16/2023 26.3 kg/m2 76424.18 g Radha GoldenvincentDAKSHA dickens [facility] 07/16/2023 10:01:26 Date Recorded Heart rate Provider Name an d Address Organization Details Last Updated DateTime 07/16/2023 84 /min Radha Jenkins MA [facility] 07/16/2023 10:02:31 Date Recorded Body height Provider Name an d Address Organization Details Last Updated DateTime 01/21/2024 152.4 cm Radha Jenkins MA [facility] 01/21/2024 07:49:27 Date Recorded Heart rate Provider Name an d Address Organization Details Last Updated DateTime 01/21/2024 84 /min Radha DAKSHA Jenkins [facility] 01/21/2024 07:51:23 Date Recorded Body height Provider Name an d Address Organization Details Last Updated DateTime 02/15/2024 152.4 cm Faye Womack LPN [facility] 02/15/2024 09:10:54 Date Recorded Heart rate Provider Name an d Address Organization Details Last Updated DateTime 02/15/2024 70 /min Faye Womack LPN [facility] 02/15/2024 09:11:08 Date Recorded Systolic blood pressure Diastolic blood pressure Provider Name and Address Organization Details Last Updated DateTime 07/15/2022 146 mm[Hg] 80 mm[Hg] Radha DAKSHA Jenkins [facility] 07/15/2022 09:04:57 Date Recorded Systolic blood pressure Diastolic blood pressure Provider Name and Address Organization Details Last Updated DateTime 07/15/2022 140 mm[Hg] 78 mm[Hg] Radha TamaninderDAKSHA [facility] 07/15/2022 09:06:23 Date Recorded Systolic blood pressure Diastolic blood pressure Provider Name and Address Organization Details Last Updated DateTime 07/15/2022 124 mm[Hg] 62 mm[Hg] Parisa Hlal MD [address] [place] [address], [phone], [facility] 07/15/2022 09:47:07 Date Recorded Systolic blood pressure Diastolic blood pressure Provider Name and Address Organization Details Last Updated DateTime 01/15/2023 114 mm[Hg] 70 mm[Hg] Dai Arnold [facility] 01/15/2023 11:28:51 Date Recorded Systolic blood pressure Diastolic blood pressure Provider Name and Address Organization Details Last Updated DateTime 07/16/2023 112 mm[Hg] 64 mm[Hg] Radha Jenkins MA [facility] 07/16/2023 10:01:29 Date Recorded Systolic blood pressure Diastolic blood pressure Provider Name and Address Organization Details Last Updated DateTime 01/21/2024 138 mm[Hg] 76 mm[Hg] Radha Jenkins MA [facility] 01/21/2024 07:50:51 Date Recorded Systolic blood pressure Diastolic blood pressure Provider Name and Address Organization Details Last Updated DateTime 01/21/2024 138 mm[Hg] 80 mm[Hg] Parisa Hall MD [address] [place] [address], [phone], [facility] 01/21/2024 08:17:30 Date Recorded Systolic blood pressure Diastolic blood pressure Provider Name and Address Organization Details Last Updated DateTime 02/15/2024 117 mm[Hg] 70 mm[Hg] Faye Womack LPN [facility] 02/15/2024 09:11:06 Social History Question Answer Notes LastModified by Organizat ion Details LastModified Time Tobacco Smoking Status Never Smoker high school Parisa Hall MD [address] [place] [address], [phone], [facility] 03/16/2018 08:49:26 What Is Your Level Of Alcohol Consumption? None Information not available 05/10/2013 What Is Your Level Of Caffeine Consumption? Moderate 2 Cups Daily Information not available 01/15/2023 What Type Of Diet Are You Following? REGULAR Information not available 10/23/2015 Which Illicit Or Recreational Drugs Have You Used? None Information not available 10/23/2015 Do You Or Have You Ever Used E-cigarettes Or Vape? Never Used Electronic Cigarettes Information not available 07/19/2019 What Is Your Occupation? [employer] Information not available 02/06/2012 How Many Days In The Past Year Have You Had A Heavy Drinking Consumption (4+ Female, 5+ Male)? 0 Information not available 05/10/2013 Are There Any Guns Present In Your Home? No Information not available 10/23/2015 Do You Use Insect Repellent Routinely? Yes Information not available 01/15/2023 Live Alone Or With Others? Alone But Same BF - Dane 23 Yrs. Information not available 03/13/2017 Does The Patient Have Difficulty Speaking Finnish? No Information not available 10/23/2015 Does The Patient Have Difficulty Reading Finnish? No Information not available 10/23/2015 Patient Has Health Care Proxy Signed And In Chart Yes Oldest Daughter - millicent Murdock Information not available 09/23/2018 MOLST Form Signed And In Chart 02/07/2016 Information not available 02/07/2016 Marital Status Live With Partner, BF Information not available 05/10/2013 Mosquito Repellent Used Routinely No Information not available 10/23/2015 What Was The Date Of Your Most Recent Tobacco Screening? 01/21/2024 Information not available 01/21/2024 How Many Children Do You Have? 3 Information not available 04/24/2011 What Is Your Relationship Status? Information not available 01/15/2023 Do You Use Your Seat Belt Or Car Seat Routinely? Yes Information not available 01/15/2023 Seat Belts Used Routinely Yes Information not available 10/23/2015 Are You Sexually Active? Yes Information not available 10/23/2015 Smoke Alarm In Home Yes Information not available 10/23/2015 Do You Or Have You Ever Used Smokeless Tobacco? Never Used Smokeless Tobacco Information not available 07/19/2019 What Types Of Sporting Activities Do You Participate In? None Information not available 10/23/2015 Do You Use Any Illicit Or Recreational Drugs? No Information not available 01/15/2023 Do You Use Sunscreen Routinely? Yes Information not available 10/23/2015 Do You Or Have You Ever Used Any Other Forms Of Tobacco Or Nicotine? No Information not available 07/15/2022 Sex: Female Functional Status Question Answer Note LastModified by Organizat ion Details LastModified Time What is your exercise level? Occasional Information not available 01/15/2023 Mental Status None recorded. Family History Relationship Description Onset Age of this Age Resolved Age Notes LastModified by Organization Details LastModified Time Mother Malignant neoplastic disease 84 ovaria n (previ ously record ed as Cancer ) [employer] [facility] Not available 10/23/2015 12:00:38 Mother Malignant tumor of colon 80 previo usly record ed as Cancer - Colon [employer] Not available 10/23/2015 12:00:38 Father Dementia 82 Picks dse [employer] Not available 10/23/2015 12:00:38 Father Malignant neoplastic disease leukem ia (previ ously record ed as Cancer ) [employer] [facility] Not available 10/23/2015 12:00:38 Father Hypertensive disorder previo usly record ed as Hypert ension [employer] Not available 10/23/2015 12:00:38 Sister Problem psoria sis [employer] Not available 10/23/2015 12:00:38 Notes:Twin fraternal sister Medical History Condition Response Anxiety Y Hypertension Y Depression Y Gynecological History Statement/Question Response History of Abnormal Pap N Age at Menarche 16 Date of LMP Obstetrics History GPAL:G 0 P 0 0 0 0 Immunizations Vaccine Type Date Status Note Provider Nam e and Address Organization Details Recorded Time Tdap 1 completed Not Available [facility] 2019 02:33:04 Influenza, split virus, trivalent, preservative 2 completed Not Available [facility] 2019 02:29:25 zoster live 2 completed Not Available [facility] 2019 02:32:24 pneumococcal polysaccharide PPV23 3 completed Not Available [facility] 2019 02:14:36 Pneumococcal conjugate PCV 13 6 completed Not Available [facility] 2019 02:35:43 influenza, unspecified formulation 3 completed Not Available [facility] 03/26/2022 19:35:25 Influenza, high-dose, trivalent, PF 6 completed Not Available [facility] 02:29:50 influenza, unspecified formulation 4 completed Not Available [facility] 03/26/2022 19:35:25 Influenza, high-dose, trivalent, PF 7 completed Not Available [facility] 2019 02:22:03 Influenza, high-dose, trivalent, PF 5 completed Not Available [facility] 03/26/2022 19:35:25 Influenza, high-dose, trivalent, PF 8 completed Not Available [facility] 2019 02:23:01 Influenza, high-dose, trivalent, PF 0 completed Parisa Hall MD [address] [place] [address], [phone], [facility] 07/19/2019 09:14:01 Td (adult), 2 Lf tetanus toxoid, preservative free, adsorbed 1 completed SAMANTHA Preston, [facility] 10/22/2020 12:18:18 Influenza, high-dose, trivalent, PF 0 completed Not Available [facility] 03/26/2022 19:35:25 COVID-19, mRNA, LNP-S, PF, 30 mcg/0.3 mL dose 1 completed Not Available [facility] 03/26/2022 19:35:25 COVID-19, mRNA, LNP-S, PF, 30 mcg/0.3 mL dose 1 completed Not Available [facility] 03/26/2022 19:35:25 Past Encounters Encounter ID Performer Location Encounter Start Date Encounter Closed Date Diagnosis/Indication Diagnosis SNOMED-CT Code Diagnosis ICD10 Code Diagnosis Note [id number] ANUJA MOSES, OFFICE [address] [place] [address] 01/06/2011 08:20:11 01/06/2011 09:36:[id number] [address] 01/13/2011 13:06:52 01/20/2011 14:25:08 [id number] ANUJA MOSES, OFFICE [address] [place] [id number] 6 02/06/2011 08:58:25 02/06/2011 09:38:10 [id number] ANUJA MOSES, OFFICE [address] [place] [id number] 6 02/06/2012 14:55:36 02/06/2012 16:13:10 [id number] Oscar Saunders , [facility], OFFICE [address] [place] [facility] [place] [address] 03/05/2012 13:20:30 03/05/2012 14:03:14 [id number] Lowell Hamilton MD Radiology , [facility] [address] [facility] [place] [facility] [address] 03/05/2012 14:02:45 03/08/2012 13:32:23 [id number] Lowell Hamilton MD Radiology , [facility] [address] [place] [facility] [place] [address] 03/17/2012 14:29:41 03/18/2012 15:52:26 [id number] Lowell Hamilton MD Radiology , [facility] [address] [place] [facility] [place] [address] 03/31/2012 10:44:25 04/01/2012 15:19:42 [id number] Lowell Hamilton MD Radiology , [facility] [address] [place] [facility] [place] [address] 03/31/2012 10:44:35 03/31/2012 11:44:43 [id number] Parisa Hall MD , [facility], OFFICE [address] [facility] [facility] [place] [facility] [place] [address] 04/01/2012 14:40:50 04/01/2012 15:20:03 [id number] Parisa Hall MD , [facility], OFFICE [address] [place] [facility] [place] [address] 04/28/2012 10:07:22 04/28/2012 10:53:42 [id number] Parisa Hall MD , [facility], OFFICE [address] [place] [facility] [place] [address] 06/22/2012 14:11:42 06/22/2012 14:50:41 [id number] Parisa Hall MD , [facility], OFFICE [address] [place] [facility] [place] [address] 07/01/2012 11:23:08 07/01/2012 13:06:19 [id number] Oscar Saunders , [facility], OFFICE [address] [place] [address] 09/02/2012 13:24:33 09/02/2012 14:23:33 [id number] JOSUÉ [facility], OFFICE [address] [place] [id number] 6 12/10/2012 11:26:06 12/10/2012 14:00:54 [id number] Katie MOSES [facility], OFFICE [address] [place] [address] 05/10/2013 15:47:34 05/10/2013 17:16:04 Adult health examination [id number] see Risk Assessment and Lifestyle Change Counseling section above Counseling [id number] Screening for osteoporosis 211932541 Carpal dory janel syndrome 92135465 Administra tion of pneumococcal vaccine 11592125 Essential hypertension 16593297 Recurrent depression 551654330 Arthritis 7713285 [id number] JOSUÉ [facility], OFFICE [address] [place] [address] 6 07/18/2013 13:46:47 07/18/2013 14:24:03 Scalp injury 487428880 Abnormal gait 64976334 [id number] Aarti Camara, PT Physical Therapy, [address] [address] 07/20/2013 13:53:54 07/21/2013 07:44:09 Abnormal gait 94634755 [id number] Aarti Camara, PT Physical Therapy, [address] [address] 07/27/2013 13:38:52 07/28/2013 08:12:29 Abnormal gait 49697015 [id number] Katie MOSES [facility], OFFICE [address] [place] [address] 6 08/25/2013 14:24:59 08/25/2013 15:01:27 Carpal tunnel syndrome 09026546 Abnormal gait 91413411 [id number] Katie MOSES [facility], OFFICE [address] [place] [id number] 6 11/07/2013 13:42:53 11/07/2013 14:28:32 Essential hypertension 04958310 Carpal dory janel syndrome 16346760 Onychomycosis 780841019 Major depr ession, melancholic type 616964323 [id number] Prashanth Smart MD , [facility], OFFICE [address] [place] [address] 02/01/2014 11:39:38 02/01/2014 13:16:24 Foot pain 95031158 [id number] Parisa Hall MD , [facility], OFFICE [address] [place] [address] 6 10/23/2015 10:51:17 10/23/2015 12:27:21 Adult health examination 932432602 Z00.00 see Risk Assessment and Lifestyle Change Counseling section above Counseling 356304273 Z71 .9 Screening mammography 24 033841 Z12.31 Hyperkalemia 32463056 E8 7.5 Postmenopausal state 764 15212 Z78.0 Essential hypertension 56483574 I10 Active or passive immunization 710667008 Z23 Major depr ession, melancholic type 567391777 F32.1 Hyperlipidemia 38551447 E78.5 [id number] Parisa Hall MD , [facility], OFFICE [address] [place] [id number] 6 02/07/2016 13:42:13 02/07/2016 14:19:39 Benign essential hypertension 8091950 I10 Hyperkalemia 38175131 E8 7.5 [id number] Parisa Hall MD , [facility], OFFICE [address] [place] [id number] 6 02/29/2016 10:33:25 02/29/2016 11:36:31 Active or passive immunization 549137874 Z23 Multiple joint pain 3567 8005 M25.50 [id number] Parisa Hall MD , [facility], OFFICE [address] [place] [address] 6 03/04/2016 12:07:30 03/04/2016 12:55:04 Inflammatory polyarthropathy 586298333 M06.4 [id number] Parisa Hall MD , [facility], OFFICE [address] [place] [id number] 6 03/13/2017 08:05:57 03/13/2017 09:27:16 Adult health examination 391160376 Z00.00 see Risk Assessment and Lifestyle Change Counseling section above Counseling 684851432 Z71 .9 Active or passive immunization 286855911 Z23 Essential hypertension 97251202 I10 Recurrent depression 191 030833 F33.9 Anxiety state 033208748 F41.1 [id number] Parisa Hall MD FP, [facility], OFFICE [address] [place] [address] 6 07/24/2017 11:23:46 07/24/2017 12:41:17 Gastroesophageal reflux disease 822631623 K21.9 Abdominal pain 13326606 R10.9 [id number] Parisa Hall MD , [facility], OFFICE [address] [place] [id number] 6 09/10/2017 11:40:22 09/10/2017 12:32:01 Benign essential hypertension 9209203 I10 Heartburn 21383449 R12 [id number] Parisa Hall MD , [facility], OFFICE [address] [place] [address] 6 03/16/2018 08:14:53 03/16/2018 09:10:00 Adult health examination 741036585 Z00.00 see Risk Assessment and Lifestyle Change Counseling section above Counseling 396903228 Z71 .9 Depression screening 171 706653 Z13.89 depression screening tool administer ed, entered into emr, scored and discussed, time greater than 7.5 minutes Benign ess ential hypertension 8331141 I10 Active or passive immunization 081246534 Z23 Screening mammography 24 045018 Z12.31 Recurrent depression 191 544683 F33.9 [id number] Parisa Hall MD , [facility], OFFICE [address] [place] [address] 6 08/26/2018 07:36:25 08/26/2018 08:19:35 Essential hypertension 91237483 I10 Transient global amnesia 476837173 G45.4 Swallowing painful 14413 002 R13.19 Mixed hyperlipidemia 267 252612 E78.2 [id number] Parisa Hall MD , [facility], OFFICE [address] [place] [address] 6 09/16/2018 07:49:39 09/16/2018 09:05:41 Essential hypertension 64998662 I10 Acute ethm oidal sinusitis 95751631 J01.20 Atrial tachycardia 62718 6006 I47.1 Transient global amnesia 774355779 G45.4 [id number] Parisa Hall MD FP, [facility], OFFICE [address] [place] [address] 6 01/13/2019 07:54:52 01/13/2019 08:32:50 Essential hypertension 99485152 I10 Constipation 36356585 K5 9.00 [id number] MD JOSUÉ Nina, [facility], OFFICE [address] [place] [address] 6 07/19/2019 08:19:30 07/19/2019 14:18:50 Adult health examination 762612829 Z00.00 see Risk Assessment and Lifestyle Change Counseling section above Counseling 454529352 Z71 .9 including cardiovasc ular risk reduction counseling Depression screening 171 374362 Z13.89 depression screening tool administer ed, entered into emr, scored and discussed, time greater than 7.5 minutes Screening for alcohol abuse 864152159 Z13.39 Essential hypertension 52718725 I10 Anxiety state 625216762 F41.1 Raynaud's disease 304757 006 I73.00 Recurrent depression 191 050453 F33.9 Degenerati ve joint disease involving multiple joints 541326267 M15.9 Insomnia 861002023 G47.0 0 Lesion of skin of face 5153572785 06 L98.9 Active or passive immunization 597216467 Z23 Chronic hoarseness 91600 88564 105 R49.0 [id number] Serg Mendoza DPM Podiatry, [facility] [address] [place] [address] 09/10/2020 08:11:10 09/10/2020 16:30:24 Pain in left foot 7178736020 21590 M79.812 [id number] MD JOSUÉ Nina, [facility], OFFICE [address] [place] [address] 6 10/22/2020 10:50:33 10/22/2020 14:02:03 Recurrent depression 946154557 F33.9 Adult heal th examination 575299002 Z00.00 see Risk Assessment and Lifestyle Change Counseling section above Counseling 092444129 Z71 .9 including cardivascu lar risk reduction counseling Depression screening 171 578518 Z13.31 depression screening tool administer ed, entered into emr, scored and discussed, time greater than 7.5 minutes Screening for alcohol abuse 002564283 Z13.39 Advance di rective discussed with patient 112139450 Z71.89 Essential hypertension 04566224 I10 Raynaud's disease 338401 006 I73.00 Screening for malignant neoplasm of colon 876881365 Z12.11 Bunion 841392447 M21.61 9 Active or passive immunization 467624588 Z23 Arthritis of hand 136173 005 M13.849 Anxiety state 616225238 F41.1 [id number] Serg Mendoza DPM Podiatry, [facility] [address] [place] [address] 10/10/2020 10:06:42 10/10/2020 11:04:31 Acquired left hallux valgus 6635868283 02613 M20.12 [id number] Diane Angulo DPM Podiatry, [facility] [address] [place] [address] 05/07/2021 09:41:31 05/21/2021 15:56:54 Acquired left hallux valgus 8884032808 08007 M20.12 Foot pain 18216656 M79.6 72 Weight bearing x-ray ordered for baseline understand ing of deformity. I have reviewed with patient's that her history of raynauds disease does not make her a good surgical candidate as their is concern about her healing. So thought is to focus on healing her open wound which I think is a bursa related to pressure being applied to her medial prominence . Going forward once healed she will have to pad off the prominence or wear shoes that stretch at that location to avoid pressure. All questions have been answered. I spent 25 mins face to face with patient, more 50% spent in counseling and coordinati on of care. Rheumatoid arthritis 698 62648 M06.9 [id number] Parisa Hall MD , [facility], OFFICE [address] [place] [address] 05/14/2021 09:19:10 05/14/2021 10:19:03 Essential hypertension 53237443 I10 Screening mammography 24 147400 Z12.31 Chronic hoarseness 47781 81945 105 R49.0 Bunion 734429833 M21.61 2 Chronic cough 68557612 R 05.3 [id number] Parisa Hall MD , [facility], OFFICE [address] [place] [address] 05/27/2021 10:36:21 05/27/2021 11:15:37 Pain in left foot 2230309561 65054 M79.672 Esophageal dysmotility 835556887 K22.4 Chronic cough 08238622 R 05.3 [id number] Maritza Queen , [facility], OFFICE [address] [place] [address] 6 09/24/2021 11:23:52 10/04/2021 15:06:44 Esophageal dysmotility 857449930 K22.4 Pt hadn't realized that appointmen t with GI was for swallowing problems not just colonoscop y eval. Plan on GI evaluation . Would hold off on motility agents for now. Will increase omeprazole and plan on lifestyle management as below as well. Chronic cough 96385281 R 05.3 Will increase omeprazole 20mg to twice daily as below. Pain in left foot 718155 6281 43803 M79.672 Pt hadn't gone to see ortho. [id number] Parisa Hall MD , [facility], OFFICE [address] [place] [address] 01/13/2022 07:36:57 01/13/2022 08:30:47 Adult health examination 369346320 Z00.00 see Risk Assessment and Lifestyle Change Counseling section above Counseling 847503643 Z71 .9 including cardiovasc ular risk reduction counseling Depression screening 171 806494 Z13.31 depression screening tool administer ed, entered into emr, scored and discussed, time greater than 7.5 minutes Screening for alcohol abuse 718313764 Z13.39 Essential hypertension 03137239 I10 Recurrent depression 191 383701 F33.0 Gastroesop hageal reflux disease 745300075 K21.9 Raynaud's disease 360597 006 I73.00 Fatigue 31227183 R53.83 [id number] Parisa Hall MD , [facility], OFFICE [address] [place] [address] 6 07/15/2022 08:54:01 07/15/2022 09:50:37 Essential hypertension 57273045 I10 Active or passive immunization 264334155 Z23 Pt declines COVID booster and flu vac 07/15/22 as Nasal congestion 2127141 0 R09.81 Chronic hoarseness 63854 86099 105 R49.0 [id number] Parisa Hall MD , [facility], OFFICE [address] [place] [address] 01/15/2023 10:51:11 01/21/2023 10:12:24 Recurrent depression 267654221 F33.9 Adult heal th examination 674669715 Z00.00 see Risk Assessment and Lifestyle Change Counseling section above Depression screening 171 455882 Z13.31 depression screening tool administer ed Screening for alcohol abuse 862148629 Z13.39 Alcohol use screening tool administer ed Acute maxi llary sinusitis 49399588 J01.00 [id number] Parisa Hall MD , [facility], OFFICE [address] [place] [address] 6 07/16/2023 09:14:02 07/16/2023 10:30:24 Active or passive immunization 829986866 Z23 Pt declines COVID booster and flu vac 07/15/22 asFlu: Declines flu 07/16/23 as Essential hypertension 83542589 I10 Chronic cough 17796766 R 05.3 Dyspnea on exertion 6084 5006 R06.09 [id number] Parisa Hall MD , [facility], OFFICE [address] [place] [address] 01/21/2024 07:38:02 01/21/2024 16:36:20 Adult health examination 037144058 Z00.00 see Risk Assessment and Lifestyle Change Counseling section above Depression screening 171 205472 Z13.31 depression screening tool administer ed Screening for alcohol abuse 349900283 Z13.39 Alcohol use screening tool administer ed Active or passive immunization 242267603 Z23 Pt declines COVID booster 07/15/22 Flu: Declines flu 07/16/23 as Declines 07/15/22 as Shingles: Aware 09/24/21 LZ - too expensivew ill get prevnar 20 at the pharmacy Chronic ob structive pulmonary disease 78679795 J44.9 [place] [facility] [place], f/u in 1 year, on Breo Ellipta and effective 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 Esophageal dysmotility 383607056 K22.4 asymptomat ic Essential hypertension 84423079 I10 HTN - NOT at goal of less than 130/80 per AHA guidelines . But could be due to sinus infection, will return for nurse visit in 1 month.if not at goal, will stop losartan, use olmesartan 20 mg and continue amlodipine and f/u in 1 month with PCP with BMP prior.Disc ussed labs.Clau nue low salt diet of less than 1500 mg of sodium per day. The [employer] n (AHA) recommends 30 minutes of moderate physical activity 5 days a week.A Mediterran collette type of diet and a plant based diet is recommende d, review the website: [employer]. Vitas[employer]. The DASH diet is also recommende d.* Review this website: [email or web address]/al l-about-go od-and-mary ellen ap for healthy inexpensiv e meals. Raynaud's disease 520490 006 I73.00 doing well Recurrent depression 191 140134 F33.9 taking citalopram 40 mg since 2010, not well controlled ,will stop citalopram and use lexapro instead and will let me know via portal in 1 month Chronic re current sinusitis 946326729 J32.9 continue nasa irrigation as instructed by [facility] Augmentin and call ENT for follow up if not improved Bilateral arthritis of hands 3584505046 71270 M13.841 B/L hand finger deformitie s - offered OT and declinedte sting for RA/SERENA in 2016 and negative [id number] Faye Womack LPN , [facility], OFFICE [address] [place] [address] 02/15/2024 08:40:55 02/15/2024 11:32:33 Essential hypertension [id number] I10 HTN - NOT at goal of less than 130/80 per AHA guidelines . But could be due to sinus infection, will return for nurse visit in 1 month.if not at goal, will stop losartan, use olmesartan 20 mg and continue amlodipine and f/u in 1 month with PCP with BMP prior.Disc ussed labs.Clau nue low salt diet of less than 1500 mg of sodium per day. The [employer] n (AHA) recommends 30 minutes of moderate physical activity 5 days a week.A Mediterran collette type of diet and a plant based diet is recommende d, review the website: Carweezpt. org. The DASH diet is also recommende d.* Review this website: [email or web address]://jamie jayCodewise/al l-about-go od-and-mary ellen ap for healthy inexpensiv e meals. Health Concerns Section Related Observation LastModified by Organization Detai ls LastModified Time None Recorded Concern Status LastModified by Organization Details LastModified Time None Recorded Advance Directives Directive None Recorded Payers Encounter Date Sequence Insurance Name Policy Number Policy Gates Covered Member ID Gates Member ID Guarantor Name 07/15/2022 1 [facility] (MEDICARE REPLACEMENT PPO) [id number] Lesly Ponce [id number] Lesly Ponce 01/15/2023 1 [place] PPO) [id number] Lesly Ponce [id number] Lesly Ponce 07/16/2023 1 [place] PPO) [id number] Lesly Ponce [id number] Lesly Ponce 01/21/2024 1 [place] PPO) [id number] Lesly Ponce [id number] Lesly Ponce 02/15/2024 1 [place] PPO) [id number] Lesly Ponce [id number] Lesly Ponce Notes Date Note Type Note Provider Name and Address Organization Details Recorded Time 07/15/19 23 text/htm l VMG HypertensionReported bypatient.Duration:Age / year diagnosed (chronic) Context:No kidney disease; No congestive heart failure; No history of transient ischemic attacks; No history of diabetes Control:BP Goal less than (130/80); Treated with diet and exercise; Treated with medications; Patient understands medications are to lower blood pressure Compliance:Compliant with medications; Compliant with diet; Compliant with exercise Barriers to CareNo identified barriers to care Self Care:Using home BP monitor occasionally home BPs range 120-130/80-85 Associated Symptoms:No chest pain; No shortness of breath; No edema; No fatigue; No palpitations; No decline in exercise capacity Ability to Manage Self CareOn how confident the patient feels in ability to self manage condition the patient selects 9 with 10 being very confident and 1 being very low confidence The provider and patient discussed the Chronic Care Management program, including the services provided, and any fees associated with them. reviewed pt cases and daughter sent requests and recommendationspersistent cough and hoarseness of voice, started with laryngitis Jan 2019 and had intermittent hoarseness that was persistent, so referred to ENT Jul 2019; saw Dr Ruggiero who did not see anything abnormal at that time. Consult note reviewed with pt.pt did speech therapy consult Decemberaw GI October 2021 and again in November 2021trial of prilosec, famotidine, neti pot and saline nasal spray and flonase.has tried OTC ant-histamine for 1-2 weeks and some improvement but not completely resolved.started with nasal congestion after the visit in Jan 2022 and persistent since thendaughter states to tell her that she has audible upper airway wheezing and also states if pt may have laryngopharyngeal reflux Parisa Hall MD [address] [place] [address], [phone], [facility] 07/15/2022 21:05:56 01/16/20 23 text/htm l Risk Assessment and Lifestyle Change Counseling 65+ (Medicare)Reported bypatient.Coronary Artery Disease Risk Assessment:No Family history of coronary artery disease; No personal history of diabetes; No history of peripheral vascular disease, AAA, or carotid disease; No personal history of coronary artery disease; [place] 10 year risk 11-15% Breast Cancer Risk Assessment:No family history of breast cancer; No history of breast cancer or dcis Colon Cancer Risk Assessment:Family history of pre cancerous colon polyps or colon cancer(mother); Patient has high risk for colon cancer Lung Cancer Risk Assessment:Never smoked; No symptoms of Lung Cancer; No asbestos exposure Fracture Risk Assessment:No unexplained fracture; No use of corticosteroids; No anti-seizure medication; Normal bone density (2016); Has adequate calcium intake; No chronic use of proton pump inhibitors; Patient has average risk for osteoporotic bone fractures Cognitive/Behavioral Risk Assessment:No personal history of mental illness; No family history of mental illness; Do you or anyone else have concerns about your memory? no; Reviewed depression screening less than 7.5 minutes Safety Risk Assessment:No grab bars in bathroom; Has rails on steps; No falls; No evidence of abuse/neglect; Do you feel safe in your current relationship?YES; Have you ever been a victim of physical/emotional/sexual abuse?NO Functional Status:Patient does not have trouble hearing the television or radio when others do not.; Patient does not have to strain or struggle to hear/understand conversations; Patient does not need help with preparing meals, transportation, shopping, taking medicine, managing finances, or other activities of daily living.; Patient does not have visual loss that interferes with daily activities;Lives alone; Patient was not unsteady and did not take longer than 30 seconds during the timed get up and go test. Diet:Counseled about appropriate calcium intake and good dietary sources of calcium.; Counseled about the importance of maintaining a positive calcium balance and taking 1000 iu Vitamin D daily.; Discussed the value of a Mediterranean diet , and eating more fruits and vegetables Exercise counseling:Discussed the importance of daily physical activity; Discussed the importance of weight bearing exercise Safety:Counseled about protecting skin from the sun and lowering the risk of skin cancerVMG HypertensionReported bypatient.Duration:Age / year diagnosed (chronic) Context:No kidney disease; No congestive heart failure; No history of transient ischemic attacks; No history of diabetes Control:BP Goal less than (130/80); Treated with diet and exercise; Treated with medications; Patient understands medications are to lower blood pressure Compliance:Compliant with medications; Compliant with diet; Compliant with exercise; Compliant with follow-up visits Barriers to CareNo identified barriers to care Self Care:Using home BP monitor occasionally home BPs range 120-130/80-85 Associated Symptoms:No chest pain; No shortness of breath; No edema; No fatigue; No palpitations; No decline in exercise capacity Ability to Manage Self CareOn how confident the patient feels in ability to self manage condition the patient selects 9 with 10 being very confident and 1 being very low confidence occasional MEJIA from sinususing nasal spraypersistent sinus pain and congestion since Decemberwe are getting a copy of CT scan ordered by ENTcan't breathe through her mouth Parisa Hall MD [address] [place] [address], [phone], [facility] 01/18/2023 17:55:12 07/16/19 24 text/htm l VMG HypertensionReported bypatient.Duration:Age / year diagnosed (chronic) Context:No kidney disease; No congestive heart failure; No history of transient ischemic attacks; No history of diabetes Control:BP Goal less than (130/80); Treated with diet and exercise; Treated with medications; Patient understands medications are to lower blood pressure Compliance:Compliant with medications; Compliant with diet; Compliant with exercise Barriers to CareNo identified barriers to care Self Care:Using home BP monitor occasionally home BPs range 120-130/80-85 Associated Symptoms:No chest pain; No shortness of breath; No edema; No fatigue; No palpitations; No decline in exercise capacity Ability to Manage Self CareOn how confident the patient feels in ability to self manage condition the patient selects 9 with 10 being very confident and 1 being very low confidence still has a cough, already seen ENT and still following uphoarseness is the same degreewas told it was his heartburn, started on omeprazole and no improvementhas tried inhaler and no changesaw GI also. It's been about 2 yrsvery little cigarette has not smoked in 40 yrs or longerrecently, very fatigued and short of breath when going up the stairscleans the house and gets SOB, not usual for herstarted a few months ago.echo done in 2019 for syncope Parisa Hall MD [address] [place] [address], [phone], [facility] 07/16/2023 10:33:17 01/21/20 24 text/htm l Risk Assessment and Lifestyle Change Counseling (Medicare)Reported bypatient.Coronary Artery Disease Risk Assessment:No Family history of coronary artery disease; No personal history of diabetes; No history of peripheral vascular disease, AAA, or carotid disease; No personal history of coronary artery disease Breast Cancer Risk Assessment:No family history of breast cancer; No history of breast cancer or dcis Colon Cancer Risk Assessment:Family history of pre cancerous colon polyps or colon cancer; Patient has higherthan average risk for colon cancer Lung Cancer Risk Assessment:Has used cigarettes less than 20 pack years;Former smoker quit more than 15 years ago; No symptoms of Lung Cancer; No asbestos exposure Fracture Risk Assessment:No unexplained fracture; balance is normal; No use of corticosteroids; No anti-seizure medication; Normal bone density; Has adequate calcium intake; Taking Vitamin D supplement; No chronic use of proton pump inhibitors; Patient has average risk for osteoporotic bone fractures Cognitive/Behavioral Risk Assessment:No personal history of mental illness; No family history of mental illness; Do you or anyone else have concerns about your memory? no Safety Risk Assessment:No grab bars in bathroom; Has rails on steps; No falls; No evidence of abuse/neglect; Do you feel safe in your current relationship?YES Functional Status:Patient does not have trouble hearing the television or radio when others do not.;Patient has to strain or struggle to hear/understand conversations.; Patient does not need help with preparing meals, transportation, shopping, taking medicine, managing finances, or other activities of daily living.; Patient does not have visual loss that interferes with daily activities;Lives alone; Patient was not unsteady and did not take longer than 30 seconds during the timed get up and go test.; Patient reports no falls in the past 6 months. Diet:Counseled about eating a diet low in trans and saturated fats and high in fiber, fruits and vegetables; Counseled about appropriate calcium intake and good dietary sources of calcium.; Counseled about the importance of maintaining a positive calcium balance and taking 1000 iu Vitamin D daily.; Discussed the value of a Mediterranean diet , and eating more fruits and vegetables Exercise counseling:Discussed the importance of daily physical activity; Discussed the importance of weight bearing exercise Safety:Counseled about protecting skin from the sun and lowering the risk of skin cancer The provider and patient discussed the Chronic Care Management program, including the services provided, and any fees associated with them. has chronic sinus issues, headache, daily congestion at a certain time, difficult breathing through her nose but nothing comes out, already doing nasal irrigationwas seen by ENT and given antibiotic, sinus scraping discussed and was given azelestinerecurring since her last visit more than 6 mos ago, with last antibiotic thenthis episode has been persistent x 2 weeks, fatigue Parisa Hall MD [address] [place] [address], [phone], [facility] 01/21/2024 09:01:17 OBGyn Episode No OBEpisode recorded.
== END 2024-07-06 14:41 | disposition home or self-care (01) ==
PROVIDERS: PCP Family Medicine; Visit Provider Nurse Practitioner Family
DX: J44.9 Chronic obstructive pulmonary disease, unspecified (principal); R05.3 Chronic cough; R06.09 Other forms of dyspnea; R91.1 Solitary pulmonary nodule
CPT/HCPCS: 99214

== ENCOUNTER → 2024-07-06 14:09 | Outpatient (BNVA) | payer MEDICARE, SELFPAY | PROVIDERS: PCP Family Medicine; Visit Provider Nurse Practitioner Family | DX: J44.9 Chronic obstructive pulmonary disease, unspecified (principal); R05.3 Chronic cough; R06.09 Other forms of dyspnea; R91.1 Solitary pulmonary nodule | CPT/HCPCS: 99212 ==

== ENCOUNTER 2025-01-24 11:12 | Outpatient (AMB) | payer MEDICARE, SELFPAY ==
--- NOTE | 2025-01-24 11:20 | MHC.OFFVIS ---
Vital Signs 01/24/25 11:22 Height 5 ft Weight 145 lb BMI 28.3 BP 110/58 L Blood Pressure Location Rt brachial Position Sitting Pulse 79 Pulse Source Pulse Oximeter Pulse Oximetry (%) 97 Oxygen Delivery Method Room Air Intake Visit Reasons: Shortness of breath Allergies No Known Allergies Allergy (Verified 01/24/25 11:24) HPI HPI Shortness of breath: Details: Lesly is a pleasant 79 year old female, former minimal smoker, with underlying raynaud's, chronic hoarseness, GERD, dysphagia, and anxiety. She reports chronic dry cough with hoarseness as well as choking with eating, prior MBSS reportedly unremarkable. She has been evaluated by ENT, allergy, thoracic surgery, and GI with provided treatments minimally effective. At the last visit, Breo was increased to 200 mcg however she continues with dyspnea and dry cough with associated chest congestion that has worsened over the last three months. She notes difficulty expectorating and increased mucus production, denies fevers or chills. She also notes reflux has been more persistent, currently using gourmet reflux recommended by GI, previously tried and failed multiple PPIs. [facility] Social History Patient Tobacco Use Status: Former Tobacco user Review of Systems Const Denies chills, Denies excessive sweating, Denies fever(s), Denies headache(s) and Denies night sweats Eyes Denies dry eyes, Denies irritation and Denies itchy eyes ENT Reports Normal hearing present, Denies headache(s), Denies nasal discharge and Denies sore throat Card Denies chest pain, Denies chest pain at rest, Denies chest pain with activity, Denies claudication, Denies leg edema, Reports dyspnea on exertion, Denies orthopnea and Denies paroxysmal nocturnal dyspnea Resp Reports cough, Denies pain on inspiration, Denies pain with cough, Reports dyspnea on exertion, Denies stridor and Denies wheezing Musc Denies myalgias Neuro Reports Normal hearing present and Denies headache(s) Endo Denies excessive sweating Jason/Lymph Denies lymphadenopathy Aller/Immun Denies itchy eyes, Denies seasonal rhinorrhea and Denies wheezing Physical Exam Vital Signs: Last Vital Signs Pulse 79 01/24/25 11:22 BP 110/58 L 01/24/25 11:22 Pulse Ox 97 01/24/25 11:22 Oxygen Delivery Method Room Air 01/24/25 11:22 BMI result Body Mass Index 28.3 Const General: cooperative, healthy appearing, comfortable, no acute distress, well developed and alert Orientation/consciousness: patient oriented x3 Limitations: no limitations HEENT Head: Yes normal to inspection, Yes normocephalic and Yes atraumatic Ears: hearing grossly normal bilaterally and external ears normal Eyes General: appearance normal, both eyes and all related structures Eyelids: Yes eyelids normal Sclerae: sclerae normal EOM: EOMs intact bilaterally Neck Neck: Yes normal visual inspection and Yes no lymphadenopathy Lymphatic: no lymphadenopathy noted Chest Chest palpation & inspection: normal inspection of the chest Resp Effort & Inspection: normal respiratory effort, able to speak in complete sentences, no audible wheezes, no cough, no stridor, not tachypneic, no tripod positioning and no use of accessory muscles Auscultation: clear to auscultation bilaterally Cardio Jugular venous distension: no JVD Rate: regular rate Rhythm: regular rhythm Skin Other: warm, dry General skin exam: no rashes or lesions noted Neuro General: patient oriented x3 Cranial nerves: Yes Normal hearing present Cognition (Neuro): normal cognition Gait exam (Neuro): Normal gait present Extrem General: Yes normal to inspection, Yes capillary refill normal, Yes no clubbing, cyanosis or edema and Yes no pedal edema Psych Appearance: grossly normal and well kempt Speech and movement: Normal speech and movement present and Clear speech present Affect: normal affect Attitude: cooperative Thought process: Normal thought process present Thought content: Normal thought content present Insight: Good insight present (Psych) Judgement: Good judgement present (Psych) Assessment & Plan Assessment & Plan (1) COPD (chronic obstructive pulmonary disease): Code(s): J44.9 - Chronic obstructive pulmonary disease, unspecified Category: Medical (2) Chronic cough: Code(s): R05.3 - Chronic cough Category: Medical (3) Dyspnea on exertion: Code(s): R06.09 - Other forms of dyspnea Category: Medical (4) Pulmonary nodule: Code(s): R91.1 - Solitary pulmonary nodule Category: Medical Plan Lesly presents with worsening respiratory symptoms likely multifactorial with pulmonary, reflux and allergies contributing to symptoms. Will attempt to send for chest CT to assess for any underlying parenchymal conditions that could be the cause of increased frequency of cough and dyspnea such as an inflammatory or infectious process. Encouraged patient to use DuoNeb more frequently in addition to Breo. Will also send a flutter valve to improve mucus clearance. May need to consider LAMA component. She is aware to call if symptoms do not improve. All questions were answered and patient is in agreement of plan. Will follow up to review CT results and assess response to increased Breo or sooner if needed. Orders: Orders CT chest wo IV con Today R05.3 - Chronic cough Medications: Refilled ipratropium-albuterol 0.5 mg-3 mg(2.5 mg base)/3 mL 3 mL inhalation BID PRN 180 mL 3RF wheezing Coding Level of Care Code Est Pt Level 4 (87958) Diagnoses COPD (chronic obstructive pulmonary disease) J44.9 Chronic cough R05.3 Dyspnea on exertion R06.09 Pulmonary nodule R91.1
[2025-01-24 11:22] VITALS: BP 110/58; PULSE 79; O2SAT 97; BMI 28.3
--- OUTSIDE RECORDS SUMMARY | 2025-01-24 12:44 | XMS_ITS | Encounter Summary ---
Author Organization [facility] Address [address] [place] [address] Phone Care Team Providers Care Skin Washer Name Role Phone Parisa Wheatley MD Unavailable + Parisa Wheatley MD Primary Care Prov ider Parisa Wheatley MD Primary Care Prov ider Encounter Details Date Type Department Care Team (Latest Contact Info) Description 11/05/2021 Transcribe Orders Virtual Department [address] [place] [address] Alyssa Orozco NP [address] [place] [address] Pre-procedure lab exam (Primary Dx) Social History Tobacco Use Types Packs/Day Years Used Date Smoking Tobacco: Never Smokeless Tobacco: Never Alcohol Use Standard Drinks/Week Comments No 0 (1 standard drink = 0.6 oz pur e alcohol) rare social Comments No Sex and Gender Information Value Date Recorded Sex Assigned at Female 07/17/2017 12:46 PM EST Legal Sex Female 10:06 PM EDT Gender Identity Female 07/17/2017 12:46 PM EST Sexual Orientation Straight 07/17/2017 12 :46 PM EST documented as of this encounter Plan of Treatment Upcoming Encounters Date Type Department Care Team (Late st Contact Info) Description 01/25/2025 8:30 AM EDT Office Visit [facility] [address] [place] [phone] Parisa Wheatley MD [address] [place] [address] [email or web address] JuanitaMargoth fields, OT [address] [place] [address] juan 01/30/2025 9:30 AM EDT Office Visit [address] [address] Parisa Wheatley MD [address] [place] [address] [email or web address] Margoth Grant, OT [address] [place] [address] juan 02/08/2025 8:30 AM EDT Office Visit [address] [address] Parisa Wheatley MD [address] [place] [address] [email or web address] StoryMargoth fields, OT [address] [place] [address] juan 02/09/2025 8:30 AM EDT Office Visit [address] [address] Parisa Wheatley MD [address] [place] [address] [email or web address] Sofia Shaw, PT [address] [place] [address] [email or web address] 02/13/2025 8:45 AM EDT Office Visit [address] [address] Parisa Wheatley MD [address] [place] [address] [email or web address] JuanitaMargoth, OT [address] [place] [address] juan 02/14/2025 10:00 AM EDT Office Visit [address] [address] Parisa Wheatley MD [address] [place] [address] [email or web address] Sofia Shaw, PT [address] [place] [address] [email or web address] 02/20/2025 10:15 AM EDT Office Visit [address] [address] Parisa Wheatley MD [address] [place] [address] [email or web address] Margoth Grant, OT [address] [place] [address] juan 02/20/2025 11:00 AM EDT Office Visit [address] [address] Parisa Wheatley MD [address] [place] [address] [email or web address] An Martinez, LIQUID COMPOUNDER [address] [place] [address] 02/23/2025 10:15 AM EDT Office Visit [address] [address] Parisa Wheatley MD [address] [place] [address] [email or web address] An Martinez LIQUID COMPOUNDER [address] [place] [address] 02/27/2025 9:15 AM EDT Office Visit [address] [address] Parisa Wheatley MD [address] [place] [address] [email or web address] Sofia Shaw, PT [address] [place] [address] [email or web address] 03/02/2025 10:15 AM EDT Office Visit [address] [address] Parisa Wheatley MD [address] [place] [address] [email or web address] An Martinez, LIQUID COMPOUNDER [address] [place] [address] 03/06/2025 10:00 AM EDT Office Visit [address] [address] Parisa Wheatley MD [address] [place] [address] [email or web address] Sofia Shaw, PT [address] [place] [address] [email or web address] 03/09/2025 10:00 AM EDT Office Visit [facility] [address] [place] [address] Parisa Wheatley MD [address] [place] [address] [email or web address] Sofia Shaw, PT [address] [place] [address] [email or web address] documented as of this encounter Results * COVID-19 PCR Order (11/05/2021 3:44 PM EDT) COVID-19 Comment [id number] [facility] COVID Testing Status Specimen received in analyzing lab. Results should be available within 24 to 48 hrs. [facility] Other 11/05/2021 3:44 PM EDT 11/05/2021 6:09 PM EDT Alyssa Orozco SAMPLE DRILLER BODY FLUIDS AND STOOLS OR DERABLES Final Result Performing Organization Address City/State/[facility] Co de Phone Number [facility] [address] [place] [id number] [facility] [address] [place] [address] documented in this encounter Visit Diagnoses Diagnosis Pre-procedure lab exam- Primary Pre-procedural laboratory examination documented in this encounter Care Teams Skin Washer Relationship Specialty Start Date End Date Parisa Wheatley MD PCP - General 06/11/17 2 Parisa Wheatley MD PCP - General Family Medicine 11/06/21 Parisa Wheatley MD [email or web address] Historical LMR Provider 03/26/17 documented as of this encounter Additional Source Comments The information contained in this document represents components of the legal health record. It is not the complete legal health record.[facility]
== END 2025-01-24 11:57 | disposition home or self-care (01) ==
LOC: HO.HPSW 11:12
PROVIDERS: PCP Family Medicine; Visit Provider Nurse Practitioner Family
DX: J44.9 Chronic obstructive pulmonary disease, unspecified (principal); R05.3 Chronic cough; R06.09 Other forms of dyspnea; R91.1 Solitary pulmonary nodule
CPT/HCPCS: 99214

== ENCOUNTER → 2025-01-24 11:12 | Outpatient (BNVA) | payer MEDICARE, SELFPAY | PROVIDERS: PCP Family Medicine; Visit Provider Nurse Practitioner Family | DX: R05.3 Chronic cough (principal); J44.9 Chronic obstructive pulmonary disease, unspecified; R06.09 Other forms of dyspnea; R91.1 Solitary pulmonary nodule | CPT/HCPCS: 99212 ==

== ENCOUNTER 2025-02-25 08:44 | Outpatient (REF) | payer MEDICARE, SELFPAY ==
--- NOTE | ~2025-02-25 | CT_ITS ---
CLINICAL HISTORY: R05.3 - Chronic cough CT chest without contrast Comparison: CT/RI/SR - CT CHEST WITH IV CONTRAST - 10/06/23 09:15 EDT Findings: The heart size is normal. There is no pericardial effusion. Large hiatal hernia is present. The thyroid gland appears normal. There is no mediastinal, hilar, or axillary lymphadenopathy. Mild linear scarring is seen in the right lower lobe, right middle lobe, and lingula. Limited examination of the upper abdomen demonstrates several bilateral renal cysts measuring up to 1.9 cm in the right kidney and 2.6 cm in the left kidney. Moderate to severe degenerative changes are seen in the spine. No acute osseous abnormality is identified. No aggressive lytic or blastic lesion is seen. IMPRESSION: 1. Mild linear scarring in the right lower lobe, right middle lobe, and lingula. 2. Large hiatal hernia. This document has been electronically signed by: Jad Adams on 02/27/2025 09:02:41
--- OUTSIDE RECORDS SUMMARY | 2025-02-25 08:46 | XMS_ITS | Clinical Summary ---
Author Organization [facility] Address [address] [place] [address] Phone Care Team Providers Care Apple Solutions Consultant Name Role Phone Parisa Wheatley MD Unavailable + Parisa Wheatley MD Primary Care Prov ider Allergies No known active allergies Medications LOSARTAN POTASSIUM (LOSARTAN ORAL) Take 100 mg by mouth daily. Active CITALOPRAM HYDROBROMIDE (CELEXA ORAL) Take 40 mg by mouth daily. Active amLODIPine (NORVASC) 10 MG tablet 1 tablet Active aspirin 81 mg chewable tablet Take 81 mg by mouth daily. Active atorvastatin (LIPITOR) 40 MG tablet Take 40 mg by mouth daily. Active omeprazole (PRILOSEC) 20 MG capsule 09/24/2021 Active psyllium husk, with sugar, (METAMUCIL) 3.4 gram packet Take 1 packet by mouth daily. Active cholecalciferol (VITAMIN D3) 25 MCG (1,000 unit) tablet Take 1,000 Units by mouth daily. Active Active Problems Problem Noted Date Diagnosed Date Hypertension 08/05/2018 Assessment & Plan (08/05/2018 2:03 PM EST): Patient did take her amlodipine and losartan this morning just as EMS was arriving. There presenting systolic blood pressure was 240. The ones in our ER have been significantly better. Continue to monitor closely. 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 Tele-neurology consult agrees. We will do a full stroke workup to be thorough. She will get an MRI of the brain, carotid ultrasound, echocardiogram, telemetry monitoring. Hypertensive emergency certainly is a possibility but according to the patient and her daughter who is at bedside and a nurse, her blood pressures generally under very good control and so anxiety probably had a significant component of what we saw this morning. Obviously for now we are going to allow permissive blood pressure goals, if she exceeds that significantly I would consider transfer to the ICU for blood pressure management and further consults with tele-neurology. Aspirin and statin for now. I do not think that this represents a pattern consistent with seizure. No EEG has been ordered thus far. Depression 08/05/2018 Assessment & Plan (08/05/2018 2:02 PM EST): Continue Celexa. 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, right (Primary Dx) 12/15/2024 11:30 AM EDT Office Visit [address] [address] Parisa Wheatley MD Menard-John ston, Erin, PT Weakness of both lower extremities (Primary Dx) 12/13/2024 10:45 AM EDT Office Visit [address] [address] Parisa Wheatley MD Menard-John ston, Erin, PT Weakness of both lower extremities (Primary Dx) 12/07/2024 11:00 AM EDT Office Visit [facility] [address] [place] [address] Parisa Wheatley MD Truehart, Jane, PTA Weakness of both lower extremities (Primary Dx) from Last 3 Months Family History Medical History Relation Comments No Known Problems Daughter 1 No Known Problems Daughter 2 No Known Problems Daughter 3 Dementia Father Cervical cancer Mother Colon cancer Mother Leukemia Mother No Known Problems Sister Relation Status Comments Daughter 1 Alive Daughter 2 Alive Daughter 3 Alive Father Mother Sister Alive Social History Tobacco Use Types Packs/Day Years Used Date Smoking Tobacco: Never Smokeless Tobacco: Never Tobacco Cessation:Counseling Given: No Alcohol Use Standard Drinks/Week Comments No 0 (1 standard drink = 0.6 oz pur e alcohol) rare social Education Answer Date Recorded Are you interested in more education? Not on mary e 10/03/2022 Are you concerned about learning? Not on file 10/03/2022 No 10/03/2022 No 10/03/2022 Digital Access Answer Date Recorded No 11/03/2022 No 11/03/2022 Reliable internet access at home? Not on file 11/03/2022 Device with a working camera? Not on file Comments No Sex and Gender Information Value Date Recorded Sex Assigned at Female 07/17/2017 12:46 PM EST Legal Sex Female 10:06 PM EDT Gender Identity Female 07/17/2017 12:46 PM EST Sexual Orientation Straight 07/17/2017 12 :46 PM EST Last Filed Vital Signs Vital Sign Reading Time Taken Comments Blood Pressure 99/55 11/07/2021 3:03 PM EDT Pulse 62 11/07/2021 3:03 PM EDT Temperature 36 C (96.8 F) 11/07/2021 2:46 PM EDT Respiratory Rate 16 11/07/2021 3:03 PM EDT Oxygen Saturation 98% 11/07/2021 3:03 PM EDT Inhaled Oxygen Concentration - - Weight 61.2 kg (135 lb) 11/06/2021 11:00 AM EDT Height 152.4 cm (5') 11/06/2021 11:00 AM EDT Body Mass Index 26.37 11/06/2021 11:00 AM EDT Plan of Treatment Health Maintenance Due Date Last Done Comments BLOOD PRESSURE 1947 DEPRESSION SCREENING 1959 HEPATITIS C SCREENING 1965 ZOSTER VACCINES (2 of 3) 04/05/2012 02/09/2012 OSTEOPOROSIS SCREENING INITIAL (ONE-TIME) 2012 CREATININE LEVEL 08/05/2019 08/05/2018, 07/17/2017 POTASSIUM LEVEL 08/05/2019 08/05/2018, 07/17/2017 RSV VACCINE (1 - 1-dose 75+ series) 2022 LIPID PANEL 08/07/2023 08/06/2018 INFLUENZA VACCINE (#1) 2025 0, 07/19/2019, 03/16/2018, Additional history exists COVID-19 VACCINE (2024- season) 2025 09/13/2020, 08/23/2020 Adult Td,Tdap Booster 10/22/2030 10/22/2020, 011 PNEUMOCOCCAL VACCINES (50+ years) Completed 10/23/2015, 05/10/2013 SMOKING STATUS SCREENING (Once After 26 Yrs) Completed 11/07/2021 HEPATITIS A VACCINES Aged Out No long er eligible based on patient's age to complete this topic HIB VACCINES Aged Out No longer eligi ble based on patient's age to complete this topic MENINGOCOCCAL VACCINES (ACWY) Aged Out No longer eligible based on patient's age to complete this topic MENINGOCOCCAL VACCINES (B) Aged Out N o longer eligible based on patient's age to complete this topic Medical Devices Not on file Procedures Procedure Name Priority Date/Time Associated Diagnosis Comments LIPID PANEL Routine 08/06/2018 5:27 AM EST BASIC METABOLIC PANEL STAT 08/05/2018 10:58 AM EST from Last 3 Months or Most Recently Relevant to Health Maintenance Results * (ABNORMAL) Lipid panel (08/06/2018 5:27 AM EST) HDL 83 mg/dL [facility] Comment: Interpretation <40 mg/dL: Low HDL cholesterol (major risk factor for CHD) Greater than or equal to 60 mg/dL: High HDL cholesterol ( negative risk factor for CHD) HDL - cholesterol is affected by a number of factors, e.g. smoking, excerise, hormones, sex and age. CHOLESTEROL 207 0 - 240 mg/dL [facility] TRIGLYCERIDES 59 30 - 160 mg/dL [facility] LDL 112 50 - 129 mg/dL [facility] Comment: LDL levels in terms of risk for coronary heart disease: <100 mg/dL: Optimal 100-129 mg/dL: Near or above optimal 130-159 mg/dL: Borderline high 160-189 mg/dL: High >190 mg/dL: Very High CARDIAC RISK RATIO 2.5(L) 3.3 - 4.4 C [facility] Blood 08/06/2018 5:27 AM EST 08/06/2018 5:41 AM EST us Sebastián Coburn MD LAB BLOOD ORDERABLES Final Result Performing Organization Address [facility] Co de Phone Number [address] [address] * Basic metabolic panel (08/05/2018 10:58 AM EST) SODIUM 143 133 - 146 mmol/L [facility] CHLORIDE 107 96 - 108 mmol/L [facility] POTASSIUM 4.3 3.3 - 5.1 mmol/L [facility] CO2 26 21 - 35 mmol/L [facility] BUN 14 6 - 19 mg/dL [facility] CREATININE 0.70 0.5 - 1.5 mg/dL [facility] GLUCOSE 97 70 - 99 mg/dL [facility] CALCIUM 9.8 8.4 - 10.3 mg/dL [facility] EGFR 87 >59 mL/min/1.7 3m2 [facility] Comment:If patient is black, multiply result by 1.159. Estimated glomerular filtration rate calculated using the CKD-EPI equation. ANION GAP 14 10 - 20 mmol/L [facility] Blood 08/05/2018 10:5 8 AM EST 08/05/2018 11:07 AM EST us Shade Cuevas MD LAB BLOOD ORDERABLES Final Resu lt Performing Organization Address City/[facility]/ZIP Co de Phone Number [address] [address] from Last 3 Months or Most Recently Relevant to Health Maintenance Insurance [facility] MEDICARE PPO BLUE REPLACEMENT MEDICARE PART A & B [facility] MEDICARE PPO BLUE REPLACEMENT MEDICARE PART A & B [facility] MEDICARE PPO BLUE REPLACEMENT MEDICARE PART A & B [facility] MEDICARE PPO BLUE REPLACEMENT MEDICARE PART A & B [place] MED[place] BLUE REPLACEMENT MEDICARE PART A & B [facility] MEDICARE PPO BLUE REPLACEMENT MEDICARE PART A & B [facility] MEDICARE PPO BLUE REPLACEMENT MEDICARE PART A & B [facility] MEDICARE PPO BLUE REPLACEMENT MEDICARE PART A & B [facility] MEDICARE PPO BLUE REPLACEMENT MEDICARE PART A & B Advance Directives For more information, please contact: [phone] (9AM - 5PM [facility], Thursday-Thursday) * Full Code (Confirmed) (Latest Code Status on File) Date Activated Date Inactivated Comments 08/05/2018 2:54 PM 08/06/2018 4:57 PM Question Answer Comments Code Status Confirmed With: Patient Care Teams [employer] Consultant Relationship Specialty Start Date End Date Parisa Wheatley MD PCP - General Family Medicine 11/06/21 Parisa Wheatley MD Historical LMR Provider 03/26/17 Additional Source Comments The information contained in this document represents components of the legal health record. It is not the complete legal health record.[facility]
--- OUTSIDE RECORDS SUMMARY | 2025-02-25 08:46 | XMS_ITS | Encounter Summary ---
Author Organization [facility] Address [address] [place] [address] [place] [address] Phone Care Team Providers Care Dialer Name Role Phone Arminda Cuellar Unavailable [phone] Nathan Vadlez MD Unavailable Parisa Wheatley MD Unavailable + Isabela Diaz MD Unavailable [phone] Parisa Wheatley MD Primary Care Prov ider Parisa Wheatley MD Primary Care Prov ider Encounter Details Date Type Department Care Team (Late st Contact Info) Description 08/06/2018 Documentation [facility] Medicine Virtual Department [address] [place] [address] Zeeshan Short MD [address] [place] [address] [email or web address] Social History Tobacco Use Types Packs/Day Years [...] as of this encounter Plan of Treatment Not on file documented as of this encounter Visit Diagnoses Not on filedocumented in this encounter Care Teams Dialer Relationship Specialty Start Date End Date Parisa Wheatley MD [address] [place] [address] PCP - General 06/11/17 2 Parisa Wheatley MD [address] [place] [address] PCP - General Family Medicine 11/06/21 Arminda Cuellar [place] [address] Historical LMR Provider 03/26/17 2 Nathan Valdez MD [address] [place] [address] Historical LMR Provider 03/26/17 Parisa Wheatley MD [address] [place] [address] Historical LMR Provider 03/26/17 Isabela Diaz MD [address] [place] [address] Orthopedics & Sports Medicine, [place] [address] Historical LMR Provider 03/26/17 documented as of this encounter Additional Source Comments The information contained in this document represents components of the legal health record. It is not the complete legal health record.[facility]
--- OUTSIDE RECORDS SUMMARY | 2025-02-25 08:46 | XMS_ITS | Encounter Summary ---
Author Organization [facility] Address [address] [place] [address] Phone Care Team Providers Care Reports Analysis Manager Name Role Phone Parisa Wheatley MD Unavailable + Parisa Wheatley MD Primary Care Prov ider Encounter Details Date Type Department Care Team (Late st Contact Info) Description 02/07/2025 Transcribe Orders Virtual Department [address] [place] [address] Parisa Wheatley MD [address] [place], [place] [id number] [email or web address] Asymptomatic menopausal state (Primary Dx) Social History Tobacco Use Types [...] as of this encounter Plan of Treatment Scheduled Orders Name Type Priority Associated Diagnoses Orde r Schedule DXA Screening Imaging Routine Asymptomatic menopausal state Expected: 03/09/2025, Expires: 02/07/2026 documented as of this encounter Visit Diagnoses Diagnosis Asymptomatic menopausal state- Primary documented in this encounter Care Teams Reports Analysis Manager Relationship Specialty Start Date End Date Parisa Wheatley MD PCP - General Family Medicine 11/06/21 Parisa Wheatley MD Historical LMR Provider 03/26/17 documented as of this encounter Additional Source Comments The information contained in this document represents components of the legal health record. It is not the complete legal health record.[facility]
--- OUTSIDE RECORDS SUMMARY | 2025-02-25 08:46 | XMS_ITS | Encounter Summary ---
Author Organization [facility] Address [address] [place] [address] Phone Care Team Providers Care Supervisor Name Role Phone Parisa Wheatley MD Unavailable + Parisa Wheatley MD Primary Care Prov ider Parisa Wheatley MD Primary Care Prov ider Encounter Details Date Type Department Care Team (Latest Contact Info) Description 11/05/2021 Transcribe Orders Virtual Department [address] [place] [address] Alyssa Orozco NP [address] [place] [address] Pre-procedure lab exam (Primary Dx) Social History [...] on file documented as of this encounter Results * COVID-19 PCR Order (11/05/2021 3:44 PM EDT) COVID-19 Comment [id number] [facility] COVID Testing Status Specimen received in analyzing lab. Results should be available within 24 to 48 hrs. [facility] Other 11/05/2021 3:44 PM EDT 11/05/2021 6:09 PM EDT Alyssa Natalie Orozco BILLBOARD POSTER HELPER BODY FLUIDS AND STOOLS OR DERABLES Final Result [facility] [address] [place] [address] [address] documented in this encounter Visit Diagnoses Diagnosis Pre-procedure lab exam- Primary Pre-procedural laboratory examination documented in this encounter Care Teams Supervisor Relationship Specialty Start Date End Date Parisa Wheatley MD PCP - General 06/11/17 2 Parisa Wheatley MD PCP - General Family Medicine 11/06/21 Parisa Wheatley MD Historical LMR Provider 03/26/17 documented as of this encounter Additional Source Comments The information contained in this document represents components of the legal health record. It is not the complete legal health record.[facility]
--- OUTSIDE RECORDS SUMMARY | 2025-02-25 08:46 | XMS_ITS | Encounter Summary ---
Author Organization [facility] Address [address] [place] [address] [address] [place] [address] Phone Care Team Providers Care Senior Stereo Compiler Team Lead Name Role Phone Arminda Cuellar Unavailable [phone] Nathan Valdez MD Unavailable [phone] Parisa Wheatley MD Unavailable + Isabela Diaz MD Unavailable [phone] Parisa Wheatley MD Primary Care Prov ider Parisa Wheatley MD Primary Care Prov ider Encounter Details Date Type Department Care Team (Latest Contact Info) Description 11/05/2020 Transcribe Orders Virtual Department [address] [place] [address] Maritza Castro MD [address] [place] [address] [address] [place] [address] [email or web address] Cough (Primary Dx); Hoarseness; Dysphagia, pharyngoesophageal phase Social History Tobacco Use Types Packs/Day Years [...] documented as of this encounter Results * FL BARIUM SWALLOW ESOPHAGRAM DOUBLE CONTRAST (11/29/2020 8:37 AM EDT) Anatomical Region Laterality Modality Chest Computed Radiogr aphy 11/29/2020 8:59 AM EDT Impressions 11/29/2020 9:21 AM EDT 1.No focal stenosis or obstructing mass. 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 3.Small hiatal hernia. FLUOROSCOPY TIME: 2 min. 43 sec; 21 IMAGES/FRAMES 24.11 mGy / DAP 427.63 Narrative 11/29/2020 9:21 AM EDT EXAM: FL BARIUM SWALLOW ESOPHAGRAM DOUBLE CONTRAST DOUBLE CONTRAST BARIUM SWALLOW HISTORY: Other Indication (Please use free text); COUGH, HOARSENESS, DYSPHAGIA, PHARYNGOESOPHAGEAL PHASE Comparison: None Discussion: Degenerative changes in the mid/lower cervical spine. Upper airways are widely patent. The patient swallowed gas-containing granules and barium without any difficulty. Mildly patulous appearance of the esophagus, but without local narrowing or obstructing mass. No gross mucosal abnormality. Esophageal dysmotility noted on the horizontal position with delayed emptying and zryl-[id number]-ufjas motion of the content. Small hiatal hernia noted.. A 12 mm barium capsule passed easily into the stomach. Procedure Note fErem Juarez MD - 11/29/2020 EXAM: FL BARIUM SWALLOW ESOPHAGRAM DOUBLE CONTRAST DOUBLE CONTRAST BARIUM SWALLOW HISTORY: Other Indication (Please use free text); COUGH, HOARSENESS,DYSPHAGIA, PHARYNGOESOPHAGEAL PHASE Comparison: None Discussion: Degenerative changes in the mid/lower cervical spine. Upper airways arewidely patent. The patient swallowed gas-containing granules and barium without anydifficulty. Mildly patulous appearance of the esophagus, but without local narrowingor obstructing mass. No gross mucosal abnormality. Esophageal dysmotilitynoted on the horizontal position with delayed emptying and kccl-bkm-ctithdpjubj of the content. Small hiatal hernia noted.. A 12 mm barium capsule passed easily into thestomach. IMPRESSION: 1.No focal stenosis or obstructing mass. 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 3.Small hiatal hernia. FLUOROSCOPY TIME: 2 min. 43 sec; 21 IMAGES/FRAMES 24.11 mGy / DAP 427.63 us Maritza Castro MD [facility] Final Resu lt documented in this encounter Visit Diagnoses Diagnosis Cough- Primary Hoarseness Dysphonia Dysphagia, pharyngoesophageal phase Cough Hoarseness Dysphonia Dysphagia, pharyngoesophageal phase documented in this encounter Care Teams Senior Stereo Compiler Team Lead Relationship Specialty Start Date End Date Parisa Wheatley MD [address] [place] [address] PCP - General 06/11/17 2 Parisa Wheatley MD [address] [place] [address] PCP - General Family Medicine 11/06/21 Arminda [place] [address] Historical LMR Provider 03/26/17 2 Nathan Valdez MD [address] [place] [address] Historical LMR Provider 03/26/17 Parisa Wheatley MD [address] [place] [address] Historical LMR Provider 03/26/17 Isabela Diaz MD [address] [place] [address] Orthopedics [facility] Sports Medicine, [facility] [place] [address] [email or web address] Historical LMR Provider 03/26/17 documented as of this encounter Additional Source Comments The information contained in this document represents components of the legal health record. It is not the complete legal health record.[facility]
--- OUTSIDE RECORDS SUMMARY | 2025-02-25 08:47 | XMS_ITS | Encounter Summary ---
Author Organization [facility] Address [address] [place] [address] [place] [address] Phone Care Team Providers Care Racebook Writer Name Role Phone Arminda Cuellar Unavailable [phone] Nathan Valdez MD Unavailable [phone] Parisa Wheatley MD Unavailable + Isabela Diaz MD Unavailable [phone] Parisa Wheatley MD Primary Care Prov ider Parisa Wheatley MD Primary Care Prov ider Encounter Details Date Type Department Care Team (Late st Contact Info) Description 08/05/2018 Procedure Pass [facility], [address] [address] Social History Tobacco Use Types Packs/Day Years [...] on filedocumented in this encounter Care Teams Racebook Writer Relationship Specialty Start Date End Date Parisa Wheatley MD [address] [place] [address] PCP - General 06/11/17 2 Parisa Wheatley MD [address] [place] [address] PCP - General Family Medicine 11/06/21 Arminda Cuellar PA [facility] [place] [address] Historical LMR Provider 03/26/17 2 Nathan Valdez MD [address] [place] [address] Historical LMR Provider 03/26/17 Parisa Wheatley MD [address] [place] [address] Historical LMR Provider 03/26/17 Isabela Diaz MD [address] [place] [address] Orth[facility] Sports Medicine, [place] [address] Historical LMR Provider 03/26/17 documented as of this encounter Additional Source Comments The information contained in this document represents components of the legal health record. It is not the complete legal health record.[facility]
--- OUTSIDE RECORDS SUMMARY | 2025-02-25 08:47 | XMS_ITS | Encounter Summary ---
Author Organization [facility] Address [address] [facility] [address] [place] [address] Phone Care Team Providers Care Swatcher Name Role Phone Parisa Wheatley MD Unavailable + Parisa Wheatley MD Primary Care Prov ider Encounter Details Date Type Department Care Team (Late st Contact Info) Description 11/07/2021 Procedure Pass [facility] Endoscopy Admitting Dept Virtual Department [address] [place] [address] Social History Tobacco Use Types Packs/Day Years [...] on filedocumented in this encounter Care Teams Swatcher Relationship Specialty Start Date End Date Parisa Wheatley MD PCP - General Family Medicine 11/06/21 Parisa Wheatley MD [email or web address] Historical LMR Provider 03/26/17 documented as of this encounter Additional Source Comments The information contained in this document represents components of the legal health record. It is not the complete legal health record.[facility]
--- OUTSIDE RECORDS SUMMARY | 2025-02-25 08:47 | XMS_ITS | Encounter Summary ---
Author Organization [facility] Address [address] [facility] [address] [place] [address] Phone Care Team Providers Care Career Technical Counselor Name Role Phone Parisa Wheatley MD Unavailable + Parisa Wheatley MD Primary Care Prov ider Encounter Details Date Type Department Care Team (Latest Contact Info) Description 11/22/2021 Transcribe Orders Virtual Department 30 [place] [address] Chuck Black MD [address] [place] [id number] [email or web address] Dysphagia, unspecified type (Primary Dx) Social History Tobacco Use Types [...] as of this encounter Results * FL (Speech) Video Swallow Study (01/03/2022 10:16 AM EDT) Anatomical Region Laterality Modality Radio Fluoroscop y 01/03/2022 2:22 PM EDT Impressions 01/03/2022 2:26 PM EDT No penetration or aspiration demonstrated. Please see Department of Speech and Language Pathology report for further details. Fluoroscopy Time: One minute 15 seconds, Dose: 15.23 mGy, Dose Area Product (DAP): 116.82 Number of Spot films: Zero, 647 fluoroscopic images saved Narrative 01/03/2022 2:26 PM EDT FL (SPEECH) VIDEO SWALLOW STUDY History: Dysphagia COMPARISON: There are no prior studies available for comparison TECHNIQUE: Fluoroscopic assistance was provided to the speech therapist during administration of various consistencies of barium. FINDINGS: The oral and pharyngeal stages of swallowing will be reported separately by the Department of Speech and Language Pathology. No penetration or aspiration demonstrated. Procedure Note Park Higginbotham MD - 01/03/2022 FL (SPEECH) VIDEO SWALLOW STUDY History: Dysphagia COMPARISON: There are no prior studies available for comparison TECHNIQUE: Fluoroscopic assistance was provided to the speech therapistduring administration of various consistencies of barium. FINDINGS: The oral and pharyngeal stages of swallowing will be reported separatelyby the Department of Speech and Language Pathology. No penetration or aspiration demonstrated. IMPRESSION: No penetration or aspiration demonstrated. Please see Department of Speech and Language Pathology report for furtherdetails. Fluoroscopy Time: One minute 15 seconds, Dose: 15.23 mGy, Dose Area Product (DAP): 116.82 Number of Spot films: Zero, 647 fluoroscopic images saved Chuck Black MD IMG FL EXAMS Final Resu lt documented in this encounter Visit Diagnoses Diagnosis Dysphagia, unspecified type- Primary Dysphagia, unspecified type documented in this encounter Care Teams Career Technical Counselor Relationship Specialty Start Date End Date Parisa Wheatley MD PCP - General Family Medicine 11/06/21 Parisa Wheatley MD Historical LMR Provider 03/26/17 documented as of this encounter Additional Source Comments The information contained in this document represents components of the legal health record. It is not the complete legal health record.[facility]
--- OUTSIDE RECORDS SUMMARY | 2025-02-25 08:47 | XMS_ITS | Encounter Summary ---
Author Organization [facility] Address [address] [place] [address] [place] [address] Phone Care Team Providers Care Dealmaker Name Role Phone Arminda Cuellar Unavailable [phone] Nathan Valdez MD Unavailable [phone] Parisa Wheatley MD Unavailable + Isabela Diaz MD Unavailable [phone] Parisa Wheatley MD Primary Care Prov ider Parisa Wheatley MD Primary Care Prov ider Encounter Details Date Type Department Care Team (Late st Contact Info) Description 08/05/2018 Procedure Pass [facility], [address] [address] Social History Tobacco Use Types Packs/Day Years [...] on filedocumented in this encounter Care Teams Dealmaker Relationship Specialty Start Date End Date Parisa Wheatley MD [address] [place] [address] PCP - General 06/11/17 2 Parisa Wheatley MD [address] [place] [address] PCP - General Family Medicine 11/06/21 Arminda Cuellar PA [facility] [place] [address] Historical LMR Provider 03/26/17 2 Nathan Valdez MD [address] [place] [address] Historical LMR Provider 03/26/17 Parisa Wheatley MD [address] [place] [address] Historical LMR Provider 03/26/17 Isabela Diaz MD [address] [place] [address] Orth[facility] Sports Medicine, [place] [address] Historical LMR Provider 03/26/17 documented as of this encounter Additional Source Comments The information contained in this document represents components of the legal health record. It is not the complete legal health record.[facility]
== END 2025-02-25 08:45 | disposition home or self-care (01) ==
LOC: HO.CT 08:44
PROVIDERS: PCP Family Medicine; Visit Provider Nurse Practitioner Family
DX: R05.3 Chronic cough (principal)
CPT/HCPCS: 71250

== ENCOUNTER → 2025-02-25 08:46 | Outpatient (BNV) | payer MEDICARE, SELFPAY | PROVIDERS: PCP Family Medicine; Visit Provider Radiology Vascular & Interventional Radiology | DX: R05.3 Chronic cough (principal); K44.9 Diaphragmatic hernia without obstruction or gangrene | CPT/HCPCS: 71250 ==

== ENCOUNTER 2025-03-31 12:26 | Outpatient (REF) | payer MEDICARE, SELFPAY ==
--- NOTE | ~2025-03-31 | US_ITS ---
EXAMINATION: US RETROPERITONEAL LIMITED (RENAL ONLY) CLINICAL INFORMATION: Follow-up renal cysts. COMPARISON: Previous CT of the abdomen and pelvis September [address] February 2025 TECHNIQUE: Real-time imaging of the kidneys. FINDINGS: RIGHT KIDNEY: 9.6 x 5.8 x 5.4 cm (SAG x AP x TRV). The kidney is normal in size, contour, and echogenicity. Renal cortical thickness is normal. Multiple simple cysts. Largest measures 2 x 1.5 x 1.8 cm in the midpole. No calculi. No hydronephrosis. LEFT KIDNEY: 12.1 x 4.9 x 4.4 cm (SAG x AP x TRV). The kidney is normal in size, contour, and echogenicity. Renal cortical thickness is normal. Multiple simple cysts largest measuring 2.3 x 2.6 x 2.2 cm in the upper pole and 4.7 x 4.8 x 4.5 cm in the lower pole. No calculi. No hydronephrosis. US/US renal BI IMPRESSION: Multiple bilateral renal cysts. Electronically signed by: Susan Bustillo MD 03/31/2025 01:24 PM EDT
--- OUTSIDE RECORDS SUMMARY | 2025-03-31 14:31 | XMS_ITS | Clinical Summary ---
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 Comment: Interpretation <40 mg/dL: Low HDL cholesterol (major risk factor for CHD) Greater than or equal to 60 mg/dL: High HDL cholesterol ( negative risk factor for CHD) HDL - cholesterol is affected by a number of factors, e.g. smoking, excerise, hormones, sex and age. CHOLESTEROL 207 0 - 240 mg/dL [facility] TRIGLYCERIDES 59 30 - 160 mg/dL [facility] LDL 112 50 - 129 mg/dL [facility] Comment: LDL levels in terms of risk for coronary heart disease: <100 mg/dL: Optimal 100-129 mg/dL: Near or above optimal 130-159 mg/dL: Borderline high 160-189 mg/dL: High >190 mg/dL: Very High CARDIAC RISK RATIO 2.5(L) 3.3 - 4.4 [facility] Blood 08/06/2018 5:27 AM EST 08/06/2018 5:41 AM EST us Sebastián Coburn MD LAB BLOOD ORDERABLES Final Result [address] [address] * Basic metabolic panel (08/05/2018 10:58 AM EST) SODIUM 143 133 - 146 mmol/L [facility] CHLORIDE 107 96 - 108 mmol/L [facility] POTASSIUM 4.3 3.3 - 5.1 mmol/L [facility] CO2 26 21 - 35 mmol/L [facility] BUN 14 6 - 19 mg/dL [facility] CREATININE 0.70 0.5 - 1.5 mg/dL [facility] GLUCOSE 97 70 - 99 mg/dL [facility] CALCIUM 9.8 8.4 - 10.3 mg/dL [facility] EGFR 87 >59 mL/min/1.7 3m2 [facility] Comment:If patient is black, multiply result by 1.159. Estimated glomerular filtration rate calculated using the CKD-EPI equation. ANION GAP 14 10 - 20 mmol/L [facility] Blood 08/05/2018 10:5 8 AM EST 08/05/2018 11:07 AM EST us Shade Cuevas MD LAB BLOOD ORDERABLES Final Resu lt [address] [address] from Last 3 Months or Most Recently Relevant to Health Maintenance Insurance [facility] MEDICARE PPO BLUE REPLACEMENT MEDICARE PART A & B MEDICARE PART A & B [facility] MEDICARE PPO BLUE REPLACEMENT MEDICARE PART A & B Member Subscriber Plan / Payer (Ef fective 2021-Present) Name:Lesly Ponce Member ID:[id number] Relation to Subscriber:Self Name:Lesly Ponce Subscriber ID:[id number] Payer ID:[id number] Group ID:Not on file Type:Medicare Address: [employer] [address] [place] [address] [place] MED[place]ARE P[place] BLUE REPLACEMENT MEDICARE PART A & B Member Subscriber Plan / Payer (Ef fective 2021-Present) Name:Lesly Ponce Member ID:[id number] Relation to Subscriber:Self Name:Lesly Ponce Subscriber ID:[id number] Payer ID:[id number] Group ID:Not on file Type:Medicare Address: [employer] [address] [place] [address] [facility] MEDICARE PPO BLUE REPLACEMENT MEDICARE PART A & B [facility] MEDICARE PPO BLUE REPLACEMENT MEDICARE PART A & B [facility] MEDICARE PPO BLUE REPLACEMENT MEDICARE PART A & B Member Subscriber Plan / Payer (Ef fective 2021-) Name:Rosario Lesly Member ID:[id number] Relation to Subscriber:Self Name:GeovaniLesly gonsales Subscriber ID:[id number] Payer ID:[id number] Group ID:Not on file Type:Medicare Address: [employer] [address] [place] [address] [facility] MEDICARE PPO BLUE REPLACEMENT MEDICARE PART A & B [place] MEDICARE [place] BLUE REPLACEMENT MEDICARE PART A & B Advance Directives For more information, please contact: [phone] (9AM - 5PM [facility], Thursday-Thursday) * Full Code (Confirmed) (Latest Code Status on File) Date Activated Date Inactivated Comments 08/05/2018 2:54 PM 08/06/2018 4:57 PM Question Answer Comments Code Status Confirmed With: Patient Care Teams Dining Room Busser Relationship Specialty Start Date End Date Parisa Wheatley MD PCP - General Family Medicine 11/06/21 Parisa Wheatley MD Historical LMR Provider 03/26/17 Additional Source Comments The information contained in this document represents components of the legal health record. It is not the complete legal health record.[facility]
--- OUTSIDE RECORDS SUMMARY | 2025-03-31 14:31 | XMS_ITS | Encounter Summary ---
Author Organization [facility] Address [address] [facility] [address] [place] [address] Phone Care Team Providers Care Color Strainer Name Role Phone Parisa Wheatley MD Unavailable + Parisa Wheatley MD Primary Care Prov ider Encounter Details Date Type Department Care Team (Latest Contact Info) Description 11/22/2021 Transcribe Orders Virtual Department 30 [place] [address] Chuck Black MD [address] [place] [address] [email or web address] Dysphagia, unspecified type (Primary Dx) Social History [...] type documented in this encounter Care Teams Color Strainer Relationship Specialty Start Date End Date Parisa Wheatley MD PCP - General Family Medicine 11/06/21 Parisa Wheatley MD Historical LMR Provider 03/26/17 documented as of this encounter Additional Source Comments The information contained in this document represents components of the legal health record. It is not the complete legal health record.[facility]
--- OUTSIDE RECORDS SUMMARY | 2025-03-31 14:31 | XMS_ITS | Encounter Summary ---
Author Organization [facility] Address [address] [facility] [address] [place] [address] Phone Care Team Providers Care College President Name Role Phone Parisa Wheatley MD Unavailable + Parisa Wheatley MD Primary Care Prov ider Encounter Details Date Type Department Care Team (Late st Contact Info) Description 11/07/2021 Procedure Pass [facility] Endoscopy Admitting Dept Virtual Department [address] [place] [address] Social History Tobacco Use Types Packs/Day Years [...] on filedocumented in this encounter Care Teams College President Relationship Specialty Start Date End Date Parisa Wheatley MD PCP - General Family Medicine 11/06/21 Parisa Wheatley MD [email or web address] Historical LMR Provider 03/26/17 documented as of this encounter Additional Source Comments The information contained in this document represents components of the legal health record. It is not the complete legal health record.[facility]
--- OUTSIDE RECORDS SUMMARY | 2025-03-31 14:31 | XMS_ITS | Encounter Summary ---
Author Organization [facility] Address [address] [place] [address] [place] [address] Phone Care Team Providers Care Manager Molecular Name Role Phone Arminda Cuellar Unavailable [phone] Nathan Valdez MD Unavailable [phone] Parisa Wheatley MD Unavailable + Isabela Diaz MD Unavailable [phone] Parisa Wheatley MD Primary Care Prov ider Parisa Wheatley MD Primary Care Prov ider Encounter Details Date Type Department Care Team (Late st Contact Info) Description 08/05/2018 Procedure Pass [facility], [address] [address] Social History Tobacco Use Types Packs/Day Years [...] on filedocumented in this encounter Care Teams Manager Molecular Relationship Specialty Start Date End Date Parisa Wheatley MD [address] [place] [address] PCP - General 06/11/17 2 Parisa Wheatley MD [address] [place] [address] PCP - General Family Medicine 11/06/21 Arminda Cuellar PA [facility] [place] [address] Historical LMR Provider 03/26/17 2 Nathan Valdez MD [address] [place] [address] Historical LMR Provider 03/26/17 Parisa Wheatley MD [address] [place] [address] Historical LMR Provider 03/26/17 Isabela Diaz MD [address] [place] [address] Orthopedics [facility] Sports Medicine, [place] [address] Historical LMR Provider 03/26/17 documented as of this encounter Additional Source Comments The information contained in this document represents components of the legal health record. It is not the complete legal health record.[facility]
--- OUTSIDE RECORDS SUMMARY | 2025-03-31 14:31 | XMS_ITS | Encounter Summary ---
Author Organization [facility] Address [address] [facility] [address] [place] [address] Phone Care Team Providers Care Ship Manager Name Role Phone Parisa Wheatley MD Unavailable + Parisa Wheatley MD Primary Care Prov ider Encounter Details Date Type Department Care Team (Late st Contact Info) Description 02/07/2025 Transcribe Orders Virtual Department 30 [place] [address] Parisa Wheatley MD [address] [place], [place] [id number] [email or web address] Asymptomatic menopausal state (Primary Dx) Social [...] Primary documented in this encounter Care Teams Ship Manager Relationship Specialty Start Date End Date Parisa Wheatley MD PCP - General Family Medicine 11/06/21 Parisa Wheatley MD Historical LMR Provider 03/26/17 documented as of this encounter Additional Source Comments The information contained in this document represents components of the legal health record. It is not the complete legal health record.[facility]
--- OUTSIDE RECORDS SUMMARY | 2025-03-31 14:31 | XMS_ITS | Encounter Summary ---
Author Organization [facility] Address [address] [place] [address] [place] [address] Phone Care Team Providers Care Children'S Counselor Name Role Phone Arminda Cuellar Unavailable [phone] Nathan Valdez MD Unavailable [phone] Parisa Wheatley MD Unavailable + Isabela Diaz MD Unavailable [phone] Parisa Wheatley MD Primary Care Prov ider Parisa Wheatley MD Primary Care Prov ider Encounter Details Date Type Department Care Team (Late st Contact Info) Description 08/05/2018 Procedure Pass [facility], [address] [address] Social History Tobacco Use Types Packs/Day Years [...] on filedocumented in this encounter Care Teams Children'S Counselor Relationship Specialty Start Date End Date Parisa Wheatley MD [address] [place] [address] PCP - General 06/11/17 2 Parisa Wheatley MD [address] [place] [address] PCP - General Family Medicine 11/06/21 Arminda Cuellar PA Replaced by [facility] [place] [address] Historical LMR Provider 03/26/17 2 Nathan Valdez MD [address] [place] [address] Historical LMR Provider 03/26/17 Parisa Wheatley MD [address] [place] [address] Historical LMR Provider 03/26/17 Isabela Diaz MD [address] [place] [address] Orth[facility] Sports Medicine, [place] [address] Historical LMR Provider 03/26/17 documented as of this encounter Additional Source Comments The information contained in this document represents components of the legal health record. It is not the complete legal health record.[facility]
--- OUTSIDE RECORDS SUMMARY | 2025-03-31 14:31 | XMS_ITS | Encounter Summary ---
Author Organization [facility] Address [address] [facility] [address] [place] [address] Phone Care Team Providers Care Secondary Education Professor Name Role Phone Parisa Wheatley MD Unavailable + Parisa Wheatley MD Primary Care Prov ider Parisa Wheatley MD Primary Care Prov ider Encounter Details Date Type Department Care Team (Latest Contact Info) Description 11/05/2021 Transcribe Orders Virtual Department [address] [place] [address] Alyssa Orozco NP [address] [place] [address] Pre-procedure lab exam (Primary Dx) Social History [...] (11/05/2021 3:44 PM EDT) COVID-19 Comment [id number] [facility] COVID Testing Status Specimen received in analyzing lab. Results should be available within 24 to 48 hrs. [facility] Other 11/05/2021 3:44 PM EDT 11/05/2021 6:09 PM EDT Alyssa Natalie Orozco MEDICAL DOCTOR MD BODY FLUIDS AND STOOLS OR DERABLES Final Result [facility] [address] [place] [address] [address] documented in this encounter Visit Diagnoses Diagnosis Pre-procedure lab exam- Primary Pre-procedural laboratory examination documented in this encounter Care Teams Secondary Education Professor Relationship Specialty Start Date End Date Parisa [...]
--- OUTSIDE RECORDS SUMMARY | 2025-03-31 14:31 | XMS_ITS | Encounter Summary ---
Author Organization [facility] Address [address] [place] [address] [address] [place] [address] Phone Care Team Providers Care Turbogenerator Operator Name Role Phone Arminda Cuellar Unavailable [phone] Nathan Valdez MD Unavailable [phone] Parisa Wheatley MD Unavailable + Isabela Diaz MD Unavailable [phone] Parisa Wheatley MD Primary Care Prov ider Parisa Wheatley MD Primary Care Prov ider Encounter Details Date Type Department Care Team (Latest Contact Info) Description 11/05/2020 Transcribe Orders Virtual Department [address] [place] [address] Maritza Castro MD [address] [place] [address] [address] [place] [address] [email or web address] Cough (Primary Dx); Hoarseness; Dysphagia, pharyngoesophageal [...] the horizontal position with delayed emptying and hlik-dps-sbahn motion of the content. Small hiatal hernia noted.. A 12 mm barium capsule passed easily into the stomach. Procedure Note Efrem Juarez MD - 11/29/2020 EXAM: FL BARIUM [...] the horizontal position with delayed emptying and rurp-vxp-fqefbppxwpf of the content. Small hiatal hernia noted.. A 12 mm barium capsule passed easily into thestomach. IMPRESSION: 1.No focal stenosis or obstructing mass. 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 3.Small hiatal hernia. FLUOROSCOPY TIME: 2 min. 43 sec; 21 IMAGES/FRAMES 24.11 mGy / DAP 427.63 us Maritza Castro MD IMG FL [facility] Final Resu lt documented in this encounter Visit Diagnoses Diagnosis Cough- Primary Hoarseness Dysphonia Dysphagia, pharyngoesophageal phase Cough Hoarseness Dysphonia Dysphagia, pharyngoesophageal phase documented in this encounter Care Teams Turbogenerator Operator Relationship Specialty Start Date End Date Parisa Wheatley MD [address] [place] [address] PCP - General 06/11/17 2 Parisa Wheatley MD [address] [place] [address] PCP - General Family Medicine 11/06/21 Arminda [place] [address] Historical LMR Provider 03/26/17 2 Nathan Valdez MD [address] [place] [address] Historical LMR Provider 03/26/17 Parisa Wheatley MD [address] [place] [address] Historical LMR Provider 03/26/17 Isabela Diaz MD [address] [place] [address] Orthopedics & Sports Medicine, [place] [address] [email or web address] Historical LMR Provider 03/26/17 documented as of this encounter Additional Source Comments The information contained in this document represents components of the legal health record. It is not the complete legal health record.[facility]
--- OUTSIDE RECORDS SUMMARY | 2025-03-31 14:31 | XMS_ITS | Encounter Summary ---
Author Organization [facility] Address [address] [place] [address] [place] [address] Phone Care Team Providers Care Head Butler Name Role Phone Arminda Cuellar Unavailable [phone] Nathan Valdez MD Unavailable [phone] Parisa Wheatley MD Unavailable + Isabela Diaz MD Unavailable [phone] Parisa Wheatley MD Primary Care Prov ider Parisa Wheatley MD Primary Care Prov ider Encounter Details Date Type Department Care Team (Late st Contact Info) Description 08/06/2018 Documentation [facility] Medicine Virtual Department [address] [place] [address] Zeeshan Short MD [address] [place] [address] [email or web address] Social History Tobacco Use Types Packs/Day Years [...] on filedocumented in this encounter Care Teams Head Butler Relationship Specialty Start Date End Date Parisa Wheatley MD [address] [place] [address] PCP - General 06/11/17 2 Parisa Wheatley MD [address] [place] [address] PCP - General Family Medicine 11/06/21 Arminda [place] [address] Historical LMR Provider 03/26/17 2 Nathan Valdez MD [address] [place] [address] Historical LMR Provider 03/26/17 Parisa Wheatley MD [address] [place] [address] Historical LMR Provider 03/26/17 Isabela Diaz MD [address] [place] [address] Orth[facility] Sports Medicine, [place] [address] Historical LMR Provider 03/26/17 documented as of this encounter Additional Source Comments The information contained in this document represents components of the legal health record. It is not the complete legal health record.[facility]
== END 2025-03-31 12:27 | disposition home or self-care (01) ==
LOC: HO.US 12:26
PROVIDERS: PCP Family Medicine; Visit Provider Family Medicine
DX: R93.89 Abnormal findings on diagnostic imaging of other specified body structures (principal)
CPT/HCPCS: 76775

== ENCOUNTER → 2025-03-31 12:29 | Outpatient (BNV) | payer MEDICARE, SELFPAY | PROVIDERS: PCP Family Medicine; Visit Provider Radiology Diagnostic Radiology | DX: N20.0 Calculus of kidney (principal) | CPT/HCPCS: 76775 ==

== ENCOUNTER 2025-04-04 11:46 | Outpatient (AMB) | payer MEDICARE, SELFPAY ==
--- NOTE | 2025-04-04 11:47 | A.OFFVIS_ITS ---
Vital Signs 3 04/04/25 11:48 Height 5 ft Weight 144 lb 8 oz BMI 28.2 BP 132/68 Blood Pressure Location Lt brachial Position Sitting Pulse 79 Pulse Source Pulse Oximeter Pulse Oximetry (%) 95 Oxygen Delivery Method Room Air Intake Visit Reasons: Shortness of breath Allergies No Known Allergies Allergy (Verified 04/04/25 11:50) HPI HPI Shortness of breath: Details: Lesly is a pleasant 79 year old female, former minimal smoker, with underlying COPD, raynaud's, chronic hoarseness, GERD, dysphagia, and anxiety. She reports chronic dry cough with hoarseness as well as choking with eating, prior MBSS reportedly unremarkable. She has been evaluated by ENT, allergy, thoracic surgery, and GI with provided treatments minimally effective. She continues to report suboptimal effect with Breo, using albuterol MDI multiple times per week with effect. Unfortunately continues with dyspnea on exertion. She does note that she does not experience dyspnea when she engages in physical activity with elliptical at 20 minute intervals 4X/day however notices significant dyspnea with stairs. She reports cough has resolved and denies any wheezing. Today she presents to review CT results. She denies any visits to urgent care or hospitalizations related to respiratory distress since the last visit. Of note, she denies orthopnea or BLE edema. [facility] Social History Patient Tobacco Use Status: Former Tobacco user Review of Systems Const Denies chills, Denies excessive sweating, Denies fever(s), Denies headache(s) and Denies night sweats Eyes Denies dry eyes, Denies irritation and Denies itchy eyes ENT Reports Normal hearing present, Denies headache(s), Denies nasal discharge and Denies sore throat Card Denies chest pain, Denies chest pain at rest, Denies chest pain with activity, Denies claudication, Denies leg edema, Reports dyspnea on exertion, Denies orthopnea and Denies paroxysmal nocturnal dyspnea Resp Denies change in phlegm color, Denies chest congestion, Denies cough, Denies hemoptysis, Denies pain on inspiration, Denies pain with cough, Reports dyspnea on exertion, Denies stridor and Denies wheezing Musc Denies myalgias Neuro Reports Normal hearing present and Denies headache(s) Endo Denies excessive sweating Jason/Lymph Denies lymphadenopathy Aller/Immun Denies itchy eyes, Denies seasonal rhinorrhea and Denies wheezing Physical Exam Vital Signs: Last Vital Signs Pulse 79 04/04/25 11:48 BP 132/68 04/04/25 11:48 Pulse Ox 95 04/04/25 11:48 Oxygen Delivery Method Room Air 04/04/25 11:48 BMI result Body Mass Index 28.2 Const General: cooperative, healthy appearing, comfortable, no acute distress, well developed and alert Orientation/consciousness: patient oriented x3 Limitations: no limitations HEENT Head: Yes normal to inspection, Yes normocephalic and Yes atraumatic Ears: hearing grossly normal bilaterally and external ears normal Eyes General: appearance normal, both eyes and all related structures Eyelids: Yes eyelids normal Sclerae: sclerae normal EOM: EOMs intact bilaterally Neck Neck: Yes normal visual inspection and Yes no lymphadenopathy Lymphatic: no lymphadenopathy noted Chest Chest palpation & inspection: normal inspection of the chest Resp Effort & Inspection: normal respiratory effort, able to speak in complete sentences, no audible wheezes, no cough, no stridor, not tachypneic, no tripod positioning and no use of accessory muscles Auscultation: clear to auscultation bilaterally Cardio Jugular venous distension: no JVD Rate: regular rate Rhythm: regular rhythm Skin Other: warm, dry General skin exam: no rashes or lesions noted Neuro General: patient oriented x3 Cranial nerves: Yes Normal hearing present Cognition (Neuro): normal cognition Gait exam (Neuro): Normal gait present Extrem General: Yes normal to inspection, Yes capillary refill normal, Yes no clubbing, cyanosis or edema and Yes no pedal edema Psych Appearance: grossly normal and well kempt Speech and movement: Normal speech and movement present and Clear speech present Affect: normal affect Attitude: cooperative Thought process: Normal thought process present Thought content: Normal thought content present Insight: Good insight present (Psych) Judgement: Good judgement present (Psych) Results Reviewed Results Reviewed: [address] [address] [address] Scan Report Signed Patient: Lesly Ponce MR#: [id number] : 1945 Acct:[id number] Age/Sex: 79 / F ADM Date: 02/25/25 Loc: HO.CT Attending Dr: Donna Domingo NP Ordering Physician: Donna Domingo NP Date of Service: 02/25/25 Procedure(s): CT chest wo IV con Accession Number(s): [id number] cc: Parisa Curtis MD; Donna Domingo NP~ Report Number: [id number]: Total DLP = 229.00 mGy-cm Reason for Exam: R05.3 - Chronic cough CLINICAL HISTORY: R05.3 - Chronic cough CT chest without contrast Comparison: CT/FL/SR - CT CHEST WITH IV CONTRAST - 10/06/23 09:15 EDT Findings: The heart size is normal. There is no pericardial effusion. Large hiatal hernia is present. The thyroid gland appears normal. There is no mediastinal, hilar, or axillary lymphadenopathy. Mild linear scarring is seen in the right lower lobe, right middle lobe, and lingula. Limited examination of the upper abdomen demonstrates several bilateral renal cysts measuring up to 1.9 cm in the right kidney and 2.6 cm in the left kidney. Moderate to severe degenerative changes are seen in the spine. No acute osseous abnormality is identified. No aggressive lytic or blastic lesion is seen. IMPRESSION: 1. Mild linear scarring in the right lower lobe, right middle lobe, and lingula. 2. Large hiatal hernia. This document has been electronically signed by: Jad Adams on 02/27/2025 09:02:41 Dictated By: Jad Adams MD Signed By: <Electronically signed by Jad Adams MD in OV> 02/27/25902 DD/ 1 TD/TT: 02/27/25901 Miller Head Assistant Wet Process: Assessment & Plan Assessment & Plan (1) COPD (chronic obstructive pulmonary disease): Code(s): J44.9 - Chronic obstructive pulmonary disease, unspecified Category: Medical (2) Dyspnea on exertion: Code(s): R06.09 - Other forms of dyspnea Category: Medical (3) Pulmonary nodule: Code(s): R91.1 - Solitary pulmonary nodule Category: Medical Plan Reviewed chest CT which demonstrates ground glass opacity of the RML, which was not previously present. There was also note of a large hiatal hernia. In regards to the hernia patient was supposed to follow up for further testing with Dr. Jackson, thoracic through [facility] however was not aware and will be calling to reestablish care. For the ggo noted on chest CT will send for labs to assess for any underlying CTD as patient with significant arthritis of bilateral hands and trial a course of prednisone to see if she has any improvements in respiratory symptoms. Encouraged patient to continue to use Breo and albuterol MDI. She is aware to call if symptoms do not improve/worsen. All questions were answered and patient is in agreement of plan. Will follow up in 6-8 weeks or sooner if needed. Orders: Orders 2 Rheumatoid Factor 04/04/25 M25.50 - Pain in unspecified joint Cyclic Citrullinated Peptide 04/04/25 R06.09 - Other forms of dyspnea SERENA Reflex Titer and Pattern 04/04/25 M25.50 - Pain in unspecified joint Medications: New 2 prednisone see taper instructions; 40 mg Daily x3 days, 30 mg daily x3 days, 20 mg daily x3 days, 10 mg daily x3 days 10 mg PO DIRECTED 30 tabs 0RF Coding Level of Care Code Est Pt Level 4 (37005) Complex EM visit Add On G2211 Diagnoses COPD (chronic obstructive pulmonary disease) J44.9 Dyspnea on exertion R06.09 Pulmonary nodule R91.1
[2025-04-04 11:48] VITALS: BP 132/68; PULSE 79; O2SAT 95; BMI 28.2
--- OUTSIDE RECORDS SUMMARY | 2025-04-04 15:13 | XMS_ITS | Encounter Summary ---
Author Organization [facility] Address [address] [place] [address] [address] [place] [address] Phone Care Team Providers Care Twill Cutter Name Role Phone Arminda Cuellar Unavailable [phone] Nathan Valdez MD Unavailable [phone] Parisa Wheatley MD Unavailable + Isabela Diaz MD Unavailable [phone] Parisa Wheatley MD Primary Care Prov ider Parisa Wheatley MD Primary Care Prov ider Encounter Details Date Type Department Care Team (Latest Contact Info) Description 11/05/2020 Transcribe Orders Virtual Department [address] [place] [address] Maritza Castro MD [address] [place] [address] [address] [place] [address] [email or web address] Cough (Primary Dx); Hoarseness; Dysphagia, pharyngoesophageal [...] the horizontal position with delayed emptying and izpj-gwd-mjjlf motion of the content. Small hiatal hernia [...] the horizontal position with delayed emptying and mijz-gop-quazswnyxua of the content. Small hiatal hernia noted.. A 12 mm barium capsule passed easily into thestomach. IMPRESSION: 1.No focal stenosis or obstructing mass. 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 3.Small hiatal hernia. FLUOROSCOPY TIME: 2 min. 43 sec; 21 IMAGES/FRAMES 24.11 mGy / DAP 427.63 us Maritza Castro MD IMG FL [facility] Final Resu lt documented in this encounter Visit Diagnoses Diagnosis Cough- Primary Hoarseness Dysphonia Dysphagia, pharyngoesophageal phase Cough Hoarseness Dysphonia Dysphagia, pharyngoesophageal phase documented in this encounter Care Teams Twill Cutter Relationship Specialty Start Date End Date Parisa Wheatley MD [address] [place] [address] PCP - General 06/11/17 2 Parisa Wheatley MD [address] [place] [address] PCP - General Family Medicine 11/06/21 Arminda [place] [address] [place] [address] Historical LMR Provider 03/26/17 2 Nathan Valdez MD [address] [place] [address] Historical LMR Provider 03/26/17 Parisa Wheatley MD [address] [place] [address] Historical LMR Provider 03/26/17 Isabela Diaz MD [address] [place] [address] Orthopedics & Sports Medicine, [facility] [place] [address] [email or web address] Historical LMR Provider 03/26/17 documented as of this encounter Additional Source Comments The information contained in this document represents components of the legal health record. It is not the complete legal health record.[facility]
--- OUTSIDE RECORDS SUMMARY | 2025-04-04 15:13 | XMS_ITS | Clinical Summary ---
Author Organization [facility] Address [address] [facility] [address] [place] [address] Phone Care Team Providers Care Instructional Developer Name Role Phone Parisa Wheatley MD Unavailable [...] Description 02/07/2025 Transcribe Orders Virtual Department [address] [place] [address] Parisa Wheatley MD Asymptomatic menopausal state (Primary Dx) 01/11/2025 Plan of Care Documentation [address] [address] 01/10/2025 12:45 PM EDT Office Visit [address] [address] Parisa Wheatley MD Menard, Angela, OT Nontraumatic [...] (08/06/2018 5:27 AM EST) HDL 83 mg/dL [facility] Comment: Interpretation <40 mg/dL: Low HDL cholesterol (major risk factor for CHD) Greater than or equal to 60 mg/dL: High HDL cholesterol ( negative risk factor for CHD) HDL - cholesterol is affected by a number of factors, e.g. smoking, excerise, hormones, sex and age. CHOLESTEROL 207 0 - 240 mg/dL [facility] TRIGLYCERIDES 59 30 - 160 mg/dL [facility] LDL 112 50 - 129 mg/dL [facility] Comment: LDL levels in terms of risk for coronary heart disease: <100 mg/dL: Optimal 100-129 mg/dL: Near or above optimal 130-159 mg/dL: Borderline high 160-189 mg/dL: High >190 mg/dL: Very High CARDIAC RISK RATIO 2.5(L) 3.3 - 4.4 [facility] Blood 08/06/2018 5:27 AM EST 08/06/2018 5:41 AM EST us Sebastián Coburn MD LAB BLOOD ORDERABLES Final Result [address] [address] * Basic metabolic panel (08/05/2018 10:58 AM EST) SODIUM 143 133 - 146 mmol/L [facility] CHLORIDE 107 96 - 108 mmol/L [facility] POTASSIUM 4.3 3.3 - 5.1 mmol/L [facility] CO2 26 21 - 35 mmol/L [facility] BUN 14 6 - 19 mg/dL [facility] CREATININE 0.70 0.5 - 1.5 mg/dL [facility] GLUCOSE 97 70 - 99 mg/dL [facility] CALCIUM 9.8 8.4 - 10.3 mg/dL [facility] EGFR 87 >59 mL/min/1.7 3m2 [facility] Comment:If patient is black, multiply result by 1.159. Estimated glomerular filtration rate calculated using the CKD-EPI equation. ANION GAP 14 10 - 20 mmol/L [facility] Blood 08/05/2018 10:5 8 AM EST 08/05/2018 11:07 AM EST us Shade Cuevas MD LAB BLOOD ORDERABLES Final Resu lt [address] [address] from Last 3 Months or Most Recently Relevant to Health Maintenance Insurance [facility] MEDICARE PPO BLUE REPLACEMENT MEDICARE PART A & B MEDICARE PART A & B [facility] MEDICARE PPO BLUE REPLACEMENT MEDICARE PART A & B [place] RE[place] MEDICARE PART A & B [facility] MEDICARE PPO BLUE REPLACEMENT MEDICARE PART A & B [facility] MEDICARE PPO BLUE REPLACEMENT MEDICARE PART A & B [facility] MEDICARE PPO BLUE REPLACEMENT MEDICARE PART A & B [facility] MEDICARE PPO BLUE REPLACEMENT MEDICARE PART A & B [place] BLUE REPLACEMENT MEDICARE PART A & B Advance Directives For more information, please contact: [phone] (9AM - 5PM [facility], Thursday-Thursday) * Full Code (Confirmed) (Latest Code Status on File) Date Activated Date Inactivated Comments 08/05/2018 2:54 PM 08/06/2018 4:57 PM Question Answer Comments Code Status Confirmed With: Patient Care Teams Instructional Developer Relationship Specialty Start Date End Date Parisa Wheatley MD [email or web address] PCP - General Family Medicine 11/06/21 Parisa Wheatley MD [email or web address] Historical LMR Provider 03/26/17 Additional Source Comments The information contained in this document represents components of the legal health record. It is not the complete legal health record.[facility]
--- OUTSIDE RECORDS SUMMARY | 2025-04-04 15:13 | XMS_ITS | Encounter Summary ---
Author Organization [facility] Address [address] [place] [address] [place] [address] Phone Care Team Providers Care Mailing Machine Operator Name Role Phone Arminda Cuellar Unavailable [phone] Nathan Valdez MD Unavailable [phone] Parisa Whealtey MD Unavailable + Isabela Diaz MD Unavailable [phone] Parisa Wheatley MD Primary Care Prov ider Parisa Wheatley MD Primary Care Prov ider Encounter Details Date Type Department Care Team (Late st Contact Info) Description 08/05/2018 Procedure Pass [facility], [address] [address] Social History Tobacco Use Types Packs/Day Years [...] on filedocumented in this encounter Care Teams Mailing Machine Operator Relationship Specialty Start Date End Date Parisa Wheatley MD [address] [place] [address] PCP - General 06/11/17 2 Parisa Wheatley MD [address] [place] [address] PCP - General Family Medicine 11/06/21 Arminda Cuellar PA [facility] [place] [address] Historical LMR Provider 03/26/17 2 Nathan Valdez MD [address] [place] [address] Historical LMR Provider 03/26/17 Parisa Wheatley MD [address] [place] [address] Historical LMR Provider 03/26/17 Isabela Diaz MD [address] [place] [address] Orthopedics & Sports Medicine, [place] [address] Historical LMR Provider 03/26/17 documented as of this encounter Additional Source Comments The information contained in this document represents components of the legal health record. It is not the complete legal health record.[facility]
--- OUTSIDE RECORDS SUMMARY | 2025-04-04 15:13 | XMS_ITS | Encounter Summary ---
Author Organization [facility] Address [address] [facility] [address] [place] [address] Phone Care Team Providers Care History Teacher Name Role Phone Parisa Wheatley MD Unavailable + Parisa Wheatley MD Primary Care Prov ider Encounter Details Date Type Department Care Team (Latest Contact Info) Description 11/22/2021 Transcribe Orders Virtual Department [address] [place] [address] Chuck Black MD [address] [place] [address] [email or web address] Dysphagia, unspecified type (Primary Dx) Social History [...] type documented in this encounter Care Teams History Teacher Relationship Specialty Start Date End Date Parisa Wheatley MD PCP - General Family Medicine 11/06/21 Parisa Wheatley MD Historical LMR Provider 03/26/17 documented as of this encounter Additional Source Comments The information contained in this document represents components of the legal health record. It is not the complete legal health record.[facility]
--- OUTSIDE RECORDS SUMMARY | 2025-04-04 15:13 | XMS_ITS | Encounter Summary ---
Author Organization [facility] Address [address] [place] [address] [place] [address] Phone Care Team Providers Care Payloader Machine Operator Name Role Phone Arminda Cuellar Unavailable [phone] Nathan Valdez MD Unavailable [phone] Parisa Wheatley MD Unavailable + Isabela Diaz MD Unavailable [phone] Parisa Wheatley MD Primary Care Prov ider Parisa Wheatley MD Primary Care Prov ider Encounter Details Date Type Department Care Team (Late st Contact Info) Description 08/06/2018 Documentation [facility] Medicine Virtual Department [address] [place] [address] Zeeshan Short MD [address] [place] [address] [email or web address] Social History Tobacco Use Types Packs/Day Years [...] on filedocumented in this encounter Care Teams Payloader Machine Operator Relationship Specialty Start Date End Date Parisa Wheatley MD [address] [place] [address] PCP - General 06/11/17 2 Parisa Wheatley MD [address] [place] [address] PCP - General Family Medicine 11/06/21 Arminda [place] [address] Historical LMR Provider 03/26/17 2 Nathan Valdez MD [address] [place] [address] Historical LMR Provider 03/26/17 Parisa Wheatley MD [address] [place] [address] Historical LMR Provider 03/26/17 Isabela Diaz MD [address] [place] [address] Orthopedics & Sports Medicine, [place] [address] Historical LMR Provider 03/26/17 documented as of this encounter Additional Source Comments The information contained in this document represents components of the legal health record. It is not the complete legal health record.[facility]
--- OUTSIDE RECORDS SUMMARY | 2025-04-04 15:13 | XMS_ITS | Encounter Summary ---
Author Organization [facility] Address [address] [facility] [address] [place] [address] Phone Care Team Providers Care Cafe Operator Name Role Phone Parisa Wheatley MD Unavailable + Parisa Wheatley MD Primary Care Prov ider Parisa Wheatley MD Primary Care Prov ider Encounter Details Date Type Department Care Team (Latest Contact Info) Description 11/05/2021 Transcribe Orders Virtual Department [address] [place] [address] Alyssa Orozco NP [address] [place] [address] Pre-procedure lab exam (Primary Dx) Social History [...] (11/05/2021 3:44 PM EDT) COVID-19 Comment [id number] [facility] COVID Testing Status Specimen received in analyzing lab. Results should be available within 24 to 48 hrs. [facility] Other 11/05/2021 3:44 PM EDT 11/05/2021 6:09 PM EDT Alyssa Natalie Orozco LITIGATION SECRETARY BODY FLUIDS AND STOOLS OR DERABLES Final Result [facility] [address] [place] [address] [address] documented in this encounter Visit Diagnoses Diagnosis Pre-procedure lab exam- Primary Pre-procedural laboratory examination documented in this encounter Care Teams Cafe Operator Relationship Specialty Start Date End Date [...]
--- OUTSIDE RECORDS SUMMARY | 2025-04-04 15:13 | XMS_ITS | Encounter Summary ---
Author Organization [facility] Address [address] [facility] [address] [place] [address] Phone Care Team Providers Care Industrial Relations Counselor Name Role Phone Parisa Wheatley MD Unavailable + Parisa Wheatley MD Primary Care Prov ider Encounter Details Date Type Department Care Team (Late st Contact Info) Description 11/07/2021 Procedure Pass [facility] Endoscopy Admitting Dept Virtual Department [address] [place] [address] Social History Tobacco Use Types Packs/Day Years [...] on filedocumented in this encounter Care Teams Industrial Relations Counselor Relationship Specialty Start Date End Date Parisa Wheatley MD PCP - General Family Medicine 11/06/21 Parisa Wheatley MD [email or web address] Historical LMR Provider 03/26/17 documented as of this encounter Additional Source Comments The information contained in this document represents components of the legal health record. It is not the complete legal health record.[facility]
--- OUTSIDE RECORDS SUMMARY | 2025-04-04 15:13 | XMS_ITS | Encounter Summary ---
Author Organization [facility] Address [address] [place] [address] [place] [address] Phone Care Team Providers Care Talent Acquisition Coordinator Name Role Phone Arminda Cuellar Unavailable [phone] Nathan Valdez MD Unavailable [phone] Parisa Wheatley MD Unavailable + Isabela Diaz MD Unavailable [phone] Parisa Wheatley MD Primary Care Prov ider Parisa Wheatley MD Primary Care Prov ider Encounter Details Date Type Department Care Team (Late st Contact Info) Description 08/05/2018 Procedure Pass [facility], [address] [address] Social History Tobacco Use Types Packs/Day Years [...] on filedocumented in this encounter Care Teams Talent Acquisition Coordinator Relationship Specialty Start Date End Date Parisa Wheatley MD [address] [place] [address] PCP - General 06/11/17 2 Parisa Wheatley MD [address] [place] [address] PCP - General Family Medicine 11/06/21 Arminda Cuellar PA [facility] [address] Historical LMR Provider 03/26/17 2 Nathan Valdez MD [address] [place] [address] Historical LMR Provider 03/26/17 Parisa Wheatley MD [address] [place] [address] Historical LMR Provider 03/26/17 Isabela Diaz MD [address] [place] [address] Orthopedics & Sports Medicine, [place] [address] Historical LMR Provider 03/26/17 documented as of this encounter Additional Source Comments The information contained in this document represents components of the legal health record. It is not the complete legal health record.[facility]
--- OUTSIDE RECORDS SUMMARY | 2025-04-04 15:13 | XMS_ITS | Encounter Summary ---
Author Organization [facility] Address [address] [facility] [address] [place] [address] Phone Care Team Providers Care Director Of Video Analytics Name Role Phone Parisa Wheatley MD Unavailable + Parisa Wheatley MD Primary Care Prov ider Encounter Details Date Type Department Care Team (Late st Contact Info) Description 02/07/2025 Transcribe Orders Virtual Department [address] [place] [address] Parisa Wheatley MD [address] [place], [place] [id number] [email or web address] Asymptomatic menopausal state (Primary Dx) Social History [...] Primary documented in this encounter Care Teams Director Of Video Analytics Relationship Specialty Start Date End Date Parisa Wheatley MD PCP - General Family Medicine 11/06/21 Parisa Wheatley MD Historical LMR Provider 03/26/17 documented as of this encounter Additional Source Comments The information contained in this document represents components of the legal health record. It is not the complete legal health record.[facility]
== END 2025-04-04 12:58 | disposition home or self-care (01) ==
LOC: HO.HPSW 11:46
PROVIDERS: PCP Family Medicine; Visit Provider Nurse Practitioner Family
DX: J44.9 Chronic obstructive pulmonary disease, unspecified (principal); R06.09 Other forms of dyspnea; R91.1 Solitary pulmonary nodule
CPT/HCPCS: 99214; G2211

== ENCOUNTER → 2025-04-04 11:46 | Outpatient (BNVA) | payer MEDICARE, SELFPAY | PROVIDERS: PCP Family Medicine; Visit Provider Nurse Practitioner Family | DX: R05.3 Chronic cough (principal); J44.9 Chronic obstructive pulmonary disease, unspecified; R91.1 Solitary pulmonary nodule; R06.09 Other forms of dyspnea; Z87.891 Personal history of nicotine dependence; K21.9 Gastro-esophageal reflux disease without esophagitis | CPT/HCPCS: 99212 ==

== ENCOUNTER → 2025-05-16 13:18 | Outpatient (REF) | payer MEDICARE, SELFPAY ==
--- NOTE | 2025-05-16 13:21 | CA_ITS ---
Transthoracic Echocardiogram Patient (Last, First, Middle): Lesly Ponce J Gender: F Date of : 1945 Age: 79 Procedure Date: 05/16/2025 Procedure Type: Transthoracic Echocardiogram Location: OP Height: 152.4 cm Weight: 65.32 kg BSA: 1.62 m2 Heart Rate: bpm BP: 132 / 68 mmHg Program Arranger: TO Referring MD: Donna Domingo PLANER OPERATOR Sustainability Consultant: Reinaldo Early MD Symptoms: R06.09 - Other forms of dyspnea Study Quality: Adequate ECG Rhythm: Sinus Conclusions: - 1. Normal LV ejection fraction 55-60% with impaired relaxation filling pattern 2. Mildly dilated left atrium 3. Normal cardiac valvular Dopplers 4. Normal RV systolic pressure 5. No gross pericardial effusion Findings Left Ventricle Normal left ventricular size, thickness, and systolic function. The visually estimated ejection fraction is between 55-60%. Spectral Doppler is indicative of an impaired relaxation filling pattern. E/E prime ratio is between 8 and 15 consistent with indeterminate filling pressures. Right Ventricle Normal right ventricular cavity size and systolic function. Atria The left atrium is mildly dilated. There is no evidence of interatrial shunt. The right atrium is normal in size. Aortic Valve Normal aortic valve structure and function. There is no aortic valve stenosis. There is no aortic valve regurgitation. Mitral Valve Normal mitral valve structure and function. There is trace mitral valve regurgitation. There is no mitral valve stenosis. Pulmonic Valve The pulmonic valve is likely normal. Tricuspid Valve Normal tricuspid valve structure. There is trace tricuspid valve regurgitation. The right ventricular systolic pressure is normal. The right ventricular systolic pressure is 29 mmHg. Normal right atrial pressure. There is no evidence of pulmonary hypertension. Great Vessels All visible segments of the aorta are normal in size. The pulmonary artery was not well visualized. There is no dilatation of the ascending aorta measuring 3.20 cm. Venous The inferior vena cava is normal in size and collapses greater than 50% with inspiration. Pericardium/Pleural There is no evidence of pericardial effusion. Prior Study Comparison No prior study available for comparison. Measurements 2D Linear Measurements IVSd: 0.78 0.6-0.9/0.6-1.0 cm LVIDd: 4.57 3.9-5.3/4.2-5.9 cm LVIDd Index: 2.82 2.4-3.2/2.2-3.1 cm/m2 LVIDs: 2.70 2.0-3.6 cm LVPWd: 0.82 0.7-1.1 cm LA Diam: 2.80 2.7-3.8/3.0-4.0 cm LAIDs Index: 1.73 1.5-2.3 cm/m2 LV Mass: 144.78 67-162/88-224 g LV Mass Index: 89.37 43-95/49-115 g/m2 LVOT Diam: 2.00 3.0+(-)1.3 cm 2D Systolic Function EF 4C: 57.00 >55% EF 2C: 64.30 >55% EF BiP: 58.80 >55% Mitral Valve MV Pk E: 0.64 MV PK A: 0.85 MV Decel Time: 170.00 E/A: 0.80 E'Lateral: 6.85 E'Medial: 5.55 E/E' Med: 11.60 E/E' Lat: 9.40 PHT: 50.00 MVA PHT: 4.40 Decel Y[place]: 3.78 Aortic Valve AoV Pk Junior: 1.36 AoV Mn Junior: 0.92 AoV VTI: 0.27 AoV Pk Grad: 7.00 Aov Mn Grad: 4.00 MARIE Cont.VTI: 2.32 LVOT LVOT Pk Junior: 1.06 LVOT Mn Junior: 0.65 LVOT VTI: 0.20 LVOT Pk Grad: 4.00 LVOT Mn Grad: 2.00 LVOT Diam: 2.00 LVOT Area: 3.14 Diastolic Function MV Pk E: 0.64 MV Pk A: 0.85 E/A: 0.80 E'Medial: 5.55 E/E' Med: 11.60 E' Laterial: 6.85 E/E' Lat: 9.40 Right Ventricle TAPSE (mm): 24.70 TVS' Junior: 14.90 Tricuspid Valve TR Pk Junior: 2.55 TR Pk Grad: 26.00 RA Press: 3.00 RVSP: 29.00 Great Vessels Aorta Sinus of Valsalva: 3.35 2.0-3.5 cm Ao Asc: 3.20 2.1-3.4 cm Updated in Other Vendor System with Status of Final Reinaldo Early MD electronically signed on 05/16/2025 4:24:59 PM with status of Final
--- OUTSIDE RECORDS SUMMARY | 2025-05-16 18:23 | XMS_ITS | Encounter Summary ---
Author Organization [facility] Address [address] [facility] [address] [place] [address] Phone Care Team Providers Care Industrial Chemist Name Role Phone Parisa Wheatley MD Unavailable + Parisa Wheatley MD Primary Care Prov ider Encounter Details Date Type Department Care Team (Late st Contact Info) Description 02/07/2025 Transcribe Orders Virtual Department [address] [place] [address] Parisa Wheatley MD [address] [place], [place] [id number] [email or web address] Asymptomatic menopausal state (Primary Dx) [...] Primary documented in this encounter Care Teams Industrial Chemist Relationship Specialty Start Date End Date Parisa Wheatley MD PCP - General Family Medicine 11/06/21 Parisa Wheatley MD Historical LMR Provider 03/26/17 documented as of this encounter Additional Source Comments The information contained in this document represents components of the legal health record. It is not the complete legal health record.[facility]
--- OUTSIDE RECORDS SUMMARY | 2025-05-16 18:23 | XMS_ITS | Clinical Summary ---
Author Organization [facility] Address [address] [facility] [address] [place] [address] Phone Care Team Providers Care Logging Operations Inspector Name Role Phone Parisa Wheatley MD Unavailable [...] Plan (08/05/2018 2:02 PM EST): Continue Celexa. Family History Medical History Relation Comments No [...] 08/06/2018 5:27 AM EST BASIC METABOLIC PANEL (BMP) STAT 08/05/2018 10:58 AM EST from Last 3 Months or Most Recently Relevant to Health Maintenance Results * (ABNORMAL) Lipid panel (08/06/2018 5:27 AM EST) HDL 83 mg/dL [facility] Comment: Interpretation <40 mg/dL: Low HDL cholesterol (major risk factor for CHD) Greater than or equal to 60 mg/dL: High HDL cholesterol ( negative risk factor for CHD) HDL - cholesterol is affected by a number of factors, e.g. smoking, excerise, hormones, sex and age. CHOLESTEROL 207 0 - 240 mg/dL [facility] TRIGLYCERIDES 59 30 - 160 mg/dL [facility] LDL 112 50 - 129 mg/dL [facility] Comment: LDL levels in terms of risk for coronary heart disease: <100 mg/dL: Optimal 100-129 mg/dL: Near or above optimal 130-159 mg/dL: Borderline high 160-189 mg/dL: High >190 mg/dL: Very High CARDIAC RISK RATIO 2.5(L) 3.3 - 4.4 C [facility] Blood 08/06/2018 5:27 AM EST 08/06/2018 5:41 AM EST us Sebastián Coburn MD LAB BLOOD BKR ORDERABLES Fi nal Result [address] [address] * Basic metabolic panel (08/05/2018 10:58 AM EST) SODIUM 143 133 - 146 mmol/L [facility] CHLORIDE 107 96 - 108 mmol/L [facility] POTASSIUM 4.3 3.3 - 5.1 mmol/L [facility] CO2 26 21 - 35 mmol/L [facility] BUN 14 6 - 19 mg/dL [facility] CREATININE 0.70 0.5 - 1.5 mg/dL [facility] GLUCOSE 97 70 - 99 mg/dL [facility] CALCIUM 9.8 8.4 - 10.3 mg/dL [facility] EGFR 87 >59 mL/min/1.7 3m2 [facility] Comment:If patient is black, multiply result by 1.159. Estimated glomerular filtration rate calculated using the CKD-EPI equation. ANION GAP 14 10 - 20 mmol/L [facility] Blood 08/05/2018 10:5 8 AM EST 08/05/2018 11:07 AM EST us Shade Cuevas MD LAB BLOOD BKR ORDERABLES Final Result [facility] [address] [place] [address] from Last 3 Months or Most Recently Relevant to Health Maintenance Insurance [employer] P[place] BLUE REPLACEMENT MEDICARE PART A & B [facility] MEDICARE PPO BLUE REPLACEMENT MEDICARE PART A & B [facility] MEDICARE PPO BLUE REPLACEMENT MEDICARE PART A & [place] [address] [place] [address] MEDICARE PPO BLUE REPLACEMENT MEDICARE PART A & B [facility] MEDICARE PPO BLUE REPLACEMENT MEDICARE PART A & B [facility] MEDICARE PPO BLUE REPLACEMENT MEDICARE PART A & B [facility] MEDICARE PPO BLUE REPLACEMENT MEDICARE PART A & B [place] BL[place] RE[place]AC[place] MEDICARE PART A & B [place] BLUE REPLAC[place] MEDICARE PART A & B Advance Directives For more information, please contact: [phone] (9AM - 5PM Leah/[facility], Thursday-Thursday) * Full Code (Confirmed) (Latest Code Status on File) Date Activated Date Inactivated Comments 08/05/2018 2:54 PM 08/06/2018 4:57 PM Question Answer Comments Code Status Confirmed With: Patient Care Teams Logging Operations Inspector Relationship Specialty Start Date End Date Parisa Wheatley MD PCP - General Family Medicine 11/06/21 Parisa Wheatley MD Historical LMR Provider 03/26/17 Additional Source Comments The information contained in this document represents components of the legal health record. It is not the complete legal health record.[facility]
--- OUTSIDE RECORDS SUMMARY | 2025-05-16 18:23 | XMS_ITS | Encounter Summary ---
Author Organization [facility] Address [address] [place] [address] [place] [address] Phone Care Team Providers Care Tourist Information Assistant Name Role Phone Arminda Cuellar Unavailable [phone] Nathan Valdez MD Unavailable [phone] Parisa Wheatley MD Unavailable + Isabela Diaz MD Unavailable [phone] Parisa Wheatley MD Primary Care Prov ider Parisa Wheatley MD Primary Care Prov ider Encounter Details Date Type Department Care Team (Late st Contact Info) Description 08/06/[address] [facility] Medicine Virtual Department [address] [place] [id number] Zeeshan Short MD [address] [place] [phone] [email or web address] Social History Tobacco Use Types Packs/Day Years [...] on filedocumented in this encounter Care Teams Tourist Information Assistant Relationship Specialty Start Date End Date Parisa Wheatley MD [address] [place] [address] PCP - General 06/11/17 2 Parisa Wheatley MD [address] [place] [address] PCP - General Family Medicine 11/06/21 [place] [address] [place] [address] Historical LMR Provider 03/26/17 2 Nathan Valdez MD [address] [place] [address] Historical LMR Provider 03/26/17 Parisa Wheatley MD [address] [place] [address] Historical LMR Provider 03/26/17 Isabela Diaz MD [address] [place] [address] [facility], [place] [address] Historical LMR Provider 03/26/17 documented as of this encounter Additional Source Comments The information contained in this document represents components of the legal health record. It is not the complete legal health record.[facility]
--- OUTSIDE RECORDS SUMMARY | 2025-05-16 18:23 | XMS_ITS | Encounter Summary ---
Author Organization [facility] Address [address] [facility] [address] [place] [address] Phone Care Team Providers Care Geomatics Professor Name Role Phone Parisa Wheatley MD Unavailable + Parisa Wheatley MD Primary Care Prov ider Parisa Wheatley MD Primary Care Prov ider Encounter Details Date Type Department Care Team (Latest Contact Info) Description 11/05/2021 Transcribe Orders Virtual Department 30 [place] [address] Alyssa Orozco NP [address] [place] [address] Pre-procedure lab exam (Primary Dx) Social History [...] (11/05/2021 3:44 PM EDT) COVID-19 Comment [id number] [facility] COVID Testing Status Specimen received in analyzing lab. Results should be available within 24 to 48 hrs. [facility] Other 11/05/2021 3:44 PM EDT 11/05/2021 6:09 PM EDT us Alyssa Orozco YOUTH MINISTRY DIRECTOR LAB GENERAL ORDERABLES Fi nal Result [facility] [address] [place] [address] [address] documented in this encounter Visit Diagnoses Diagnosis Pre-procedure lab exam- Primary Pre-procedural laboratory examination documented in this encounter Care Teams Geomatics Professor Relationship Specialty Start Date End Date Parisa Wheatley MD PCP - General 06/11/17 2 Parisa Wheatley MD PCP - General Family Medicine 11/06/21 Parisa Wheatley MD Historical LMR Provider 03/26/17 documented as of this encounter Additional Source Comments The information contained in this document represents components of the legal health record. It is not the complete legal health record.[facility]
--- OUTSIDE RECORDS SUMMARY | 2025-05-16 18:24 | XMS_ITS | Encounter Summary ---
Author Organization [facility] Address [address] [place] [address] [place] [address] Phone Care Team Providers Care Acquisitions Assistant Name Role Phone Arminda Cuellar Unavailable [phone] Nathan Valdez MD Unavailable [phone] Parisa Wheatley MD Unavailable + Isabela Diaz MD Unavailable [phone] Parisa Wheatley MD Primary Care Prov ider Parisa Wheatley MD Primary Care Prov ider Encounter Details Date Type Department Care Team (Late st Contact Info) Description 08/05/2018 Procedure Pass [facility], [address] [address] Social History Tobacco Use Types Packs/Day Years [...] on filedocumented in this encounter Care Teams Acquisitions Assistant Relationship Specialty Start Date End Date Parisa Wheatley MD [address] [place] [address] PCP - General 06/11/17 2 Parisa Wheatley MD [address] [place] [address] PCP - General Family Medicine 11/06/21 Arminda Cuellar PA [facility] [place] [address] Historical LMR Provider 03/26/17 2 Nathan Valdez MD [address] [place] [address] Historical LMR Provider 03/26/17 Parisa Wheatley MD [address] [place] [address] Historical LMR Provider 03/26/17 Isabela Diaz MD [address] [place] [address] Orth[facility] Sports Medicine, [place] [address] Historical LMR Provider 03/26/17 documented as of this encounter Additional Source Comments The information contained in this document represents components of the legal health record. It is not the complete legal health record.[facility]
--- OUTSIDE RECORDS SUMMARY | 2025-05-16 18:24 | XMS_ITS | Encounter Summary ---
Author Organization [facility] Address [address] [place] [address] [place] [address] Phone Care Team Providers Care Trumpet Player Name Role Phone Arminda Cuellar Unavailable [phone] Nathan Valdez MD Unavailable [phone] Parisa Wheatley MD Unavailable + Isabela Diaz MD Unavailable [phone] Parisa Wheatley MD Primary Care Prov ider Parisa Wheatley MD Primary Care Prov ider Encounter Details Date Type Department Care Team (Late st Contact Info) Description 08/05/2018 Procedure Pass [facility], [address] [address] Social History Tobacco Use Types Packs/Day Years [...] on filedocumented in this encounter Care Teams Trumpet Player Relationship Specialty Start Date End Date Parisa Wheatley MD [address] [place] [address] PCP - General 06/11/17 2 Parisa Wheatley MD [address] [place] [address] PCP - General Family Medicine 11/06/21 Arminda Cuellar PA [facility] [place] [address] Historical LMR Provider 03/26/17 2 Nathan Valdez MD [address] [place] [address] Historical LMR Provider 03/26/17 Parisa Wheatley MD [address] [place] [address] Historical LMR Provider 03/26/17 Isabela Diaz MD [address] [place] [address] [facility], [place] [address] Historical LMR Provider 03/26/17 documented as of this encounter Additional Source Comments The information contained in this document represents components of the legal health record. It is not the complete legal health record.[facility]
--- OUTSIDE RECORDS SUMMARY | 2025-05-16 18:24 | XMS_ITS | Encounter Summary ---
Author Organization [facility] Address [address] [facility] [address] [place] [address] Phone Care Team Providers Care Town Marshal Name Role Phone Parisa Whetaley MD Unavailable + Parisa Wheatley MD Primary Care Prov ider Encounter Details Date Type Department Care Team (Latest Contact Info) Description 11/22/2021 Transcribe Orders Virtual Department [address] [place] [address] Chuck Black MD [address] [place] [address] [email or web address] Dysphagia, unspecified type (Primary Dx) Social History [...] type documented in this encounter Care Teams Town Marshal Relationship Specialty Start Date End Date Parisa Wheatley MD PCP - General Family Medicine 11/06/21 Parisa Wheatley MD Historical LMR Provider 03/26/17 documented as of this encounter Additional Source Comments The information contained in this document represents components of the legal health record. It is not the complete legal health record.[facility]
--- OUTSIDE RECORDS SUMMARY | 2025-05-16 18:25 | XMS_ITS | Encounter Summary ---
Author Organization [facility] Address [address] [facility] [address] [place] [address] Phone Care Team Providers Care Banbury Mill Operator Name Role Phone Parisa Wheatley MD Unavailable + Parisa Wheatley MD Primary Care Prov ider Encounter Details Date Type Department Care Team (Late st Contact Info) Description 11/07/2021 Procedure Pass [facility] Endoscopy Admitting Dept Virtual Department [address] [place] [address] Social History Tobacco Use Types Packs/Day Years [...] on filedocumented in this encounter Care Teams Banbury Mill Operator Relationship Specialty Start Date End Date Parisa Wheatley MD PCP - General Family Medicine 11/06/21 Parisa Wheatley MD [email or web address] Historical LMR Provider 03/26/17 documented as of this encounter Additional Source Comments The information contained in this document represents components of the legal health record. It is not the complete legal health record.[facility]
== END ==
LOC: HO.CARD 13:18
PROVIDERS: PCP Family Medicine; Visit Provider Nurse Practitioner Family
DX: R06.09 Other forms of dyspnea (principal)
CPT/HCPCS: 93306

== ENCOUNTER → 2025-05-16 13:21 | Outpatient (BNV) | payer MEDICARE, SELFPAY | PROVIDERS: PCP Family Medicine; Visit Provider Internal Medicine Cardiovascular Disease | DX: I51.7 Cardiomegaly (principal); I51.89 Other ill-defined heart diseases | CPT/HCPCS: 93306 ==

== ENCOUNTER 2025-06-06 09:27 | Outpatient (AMB) | payer MEDICARE, SELFPAY ==
[2025-06-06 09:33] VITALS: BP 122/64; PULSE 84; O2SAT 98; BMI 27.6
--- NOTE | 2025-06-06 09:33 | MHC.OFFVIS ---
Vital Signs 06/06/25 09:33 Height 5 ft Weight 141 lb 8 oz BMI 27.6 BP 122/64 Blood Pressure Location Rt brachial Position Sitting Pulse 84 Pulse Source Pulse Oximeter Pulse Oximetry (%) 98 Oxygen Delivery Method Room Air Intake Visit Reasons: Shortness of breath Allergies No Known Allergies Allergy (Verified 06/06/25 09:37) HPI Comments Details: Lesly is a pleasant 79 year old female, former minimal smoker, with underlying COPD, raynaud's, chronic hoarseness, GERD, dysphagia, and anxiety. She reports chronic dry cough with hoarseness as well as choking with eating, prior MBSS reportedly unremarkable. She has been evaluated by ENT, allergy, thoracic surgery, and GI with provided treatments minimally effective. She continues to report dyspnea on exertion and was particularly severe a couple of weeks ago, improved last week, and has worsened again this week. Symptoms are triggered by activities such as climbing stairs and walking. Associated with the fluctuating dyspnea, the patient developed a dry cough and unilateral foot swelling, which began approximately three weeks ago. She believes the worsening of her breathing correlated with the onset of the swelling. She also feels bloated, questions if this could be related to possible fluid retention. Pertinent medical history includes a diagnosis of Chronic Obstructive Pulmonary Disease (COPD), for which she uses a Breo inhaler and an albuterol inhaler frequently with minimal relief. A prior trial of prednisone for her symptoms was ineffective. A recent echocardiogram revealed mild diastolic dysfunction. She denies prior h/o EDGARDO however reports ongoing daytime fatigue, falling asleep easily, frequent night time awakenings and insomnia. Pulmonology History - Chronic Obstructive Pulmonary Disease (COPD) diagnosed after a breathing test in August of last year. - Incomplete pulmonary function test in August of last year, as lung volumes were not obtained. - Current treatment includes Breo and frequent use of an albuterol inhaler. - A prior trial of prednisone showed no improvement in symptoms. - Persistent dyspnea on exertion. - New onset of a dry cough. Results - Echocardiogram: Showed impaired relaxation filling pattern (diastolic dysfunction) and an ejection fraction of 55-60%. - CAT Scan (prior): Revealed mild ggo - Pulmonary Function Test (August last year): The test was incomplete but showed evidence of COPD. [facility] Social History Patient Tobacco Use Status: Former Tobacco user Review of Systems Narrative Const Denies chills, Denies excessive sweating, Denies fever(s), Denies headache(s) and Denies night sweats Eyes Denies dry eyes, Denies irritation and Denies itchy eyes ENT Reports Normal hearing present, Denies headache(s), Denies nasal discharge and Denies sore throat Card Denies chest pain, Denies chest pain at rest, Denies chest pain with activity, Denies claudication, Denies leg edema, Reports dyspnea on exertion, Denies orthopnea and Denies paroxysmal nocturnal dyspnea Resp Denies change in phlegm color, Denies chest congestion, Denies hemoptysis, Denies pain on inspiration, Denies pain with cough, Reports dyspnea on exertion, Denies stridor and Denies wheezing Musc Denies myalgias Neuro Reports Normal hearing present and Denies headache(s) Endo Denies excessive sweating Jason/Lymph Denies lymphadenopathy Aller/Immun Denies itchy eyes, Denies seasonal rhinorrhea and Denies wheezing Physical Exam Exam Exam: Vital Signs: Last Vital Signs Pulse 84 06/06/25 09:33 BP 122/64 06/06/25 09:33 Pulse Ox 98 06/06/25 09:33 Oxygen Delivery Method Room Air 06/06/25 09:33 BMI result Body Mass Index 27.6 Const General: cooperative, healthy appearing, comfortable, no acute distress, well developed and alert Orientation/consciousness: patient oriented x3 Limitations: no limitations HEENT Head: Yes normal to inspection, Yes normocephalic and Yes atraumatic Ears: hearing grossly normal bilaterally and external ears normal Eyes General: appearance normal, both eyes and all related structures Eyelids: Yes eyelids normal Sclerae: sclerae normal EOM: EOMs intact bilaterally Neck Neck: Yes normal visual inspection and Yes no lymphadenopathy Lymphatic: no lymphadenopathy noted Chest Chest palpation & inspection: normal inspection of the chest Resp Effort & Inspection: normal respiratory effort, able to speak in complete sentences, no audible wheezes, no cough, no stridor, not tachypneic, no tripod positioning and no use of accessory muscles Auscultation: clear to auscultation bilaterally Cardio Jugular venous distension: no JVD Rate: regular rate Rhythm: regular rhythm Skin Other: warm, dry General skin exam: no rashes or lesions noted Neuro General: patient oriented x3 Cranial nerves: Yes Normal hearing present Cognition (Neuro): normal cognition Gait exam (Neuro): Normal gait present Extrem Other: BLE R>L Psych Appearance: grossly normal and well kempt Speech and movement: Normal speech and movement present and Clear speech present Affect: normal affect Attitude: cooperative Thought process: Normal thought process present Thought content: Normal thought content present Insight: Good insight present (Psych) Judgement: Good judgement present (Psych) Assessment & Plan Assessment & Plan (1) COPD (chronic obstructive pulmonary disease): Code(s): J44.9 - Chronic obstructive pulmonary disease, unspecified Category: Medical (2) Dyspnea on exertion: Code(s): R06.09 - Other forms of dyspnea Category: Medical (3) Pulmonary nodule: Code(s): R91.1 - Solitary pulmonary nodule Category: Medical (4) Diastolic dysfunction: Code(s): I51.89 - Other ill-defined heart diseases Category: Medical (5) Daytime somnolence: Code(s): R40.0 - Somnolence Category: Medical Plan The patient's worsening dyspnea, in the context of an ineffective prednisone trial and minimal relief from albuterol, is likely multifactorial, with a possbile cardiac component suggested by recent echocardiogram findings of diastolic dysfunction. A 3-day trial of Lasix will be initiated to assess for fluid-related symptom improvement. The patient will monitor daily weights and call the office on Thursday to report her response. A cardiology referral will be placed if she benefits from the diuretic. The new onset of unilateral leg swelling raises concern for a deep vein thrombosis (DVT), though it may also be a manifestation of her cardiac condition. A D-dimer will be ordered today to assess for risk of thrombosis. If the D-dimer is elevated, a CT scan to rule out pulmonary embolism and a leg ultrasound will be ordered. The patient was advised to seek emergency care for worsening pain, warmth, redness in the leg, or sudden worsening of dyspnea. The patient has a diagnosis of COPD with suboptimal control on current therapy with Breo and albuterol. If her symptoms do not improve with the Lasix trial, another inhaler such as Spiriva or Incruse will be considered. A repeat pulmonary function test is recommended to obtain complete data, including lung volumes, as the previous test was incomplete. An order for a repeat CT scan is also in place for the end of August to reassess for lung inflammation. Given the patient's symptoms of daytime sleepiness, napping, and echocardiogram findings, there is suspicion for untreated obstructive sleep apnea. An order for a home sleep study will be placed, and the facility will contact her to arrange for equipment pickup. To investigate for an autoimmune contribution to her symptoms, given her history of arthritis and inflammation seen on a prior CT scan, labs for lupus and rheumatoid arthritis are ordered. The patient will have her blood drawn today. A follow-up visit is scheduled for 10-12 weeks to review all test results, and I asked her to call on Thursday with an update on her symptoms after the Lasix trial. All questions were answered and patient is in agreement of plan. Patient Instructions - Continue taking your Breo inhaler as prescribed. - Take one tablet of Lasix (a water pill) each morning for the next 3 days. - Call our office on Thursday to let us know how your breathing and swelling are after taking the Lasix. - Weigh yourself at the same time every morning - Try to limit the amount of salt you eat, as this can cause your body to hold on to fluid. - You will have blood work done today at the clinic. - We have ordered a sleep study for you to do at home. - Go to the emergency room if your leg swelling gets worse, the leg becomes painful or hot to the touch, the redness does not go away, or if you have a sudden worsening of your shortness of breath. - Please schedule a follow-up appointment for 10-12 weeks from now. Patient was informed and verbally consented to the use of an ambient scribe for clinic note documentation during this visit. Orders: Orders D Dimer High Sensitivity Today R06.09 - Other forms of dyspnea PFT pulmonary function test 3 Months J44.9 - Chronic obstructive pulmonary disease, unspecified RT home sleep study Today R40.0 - Somnolence Medications: New furosemide (Lasix) 20 mg PO DAILY 3 tabs 0RF Coding Level of Care Code Est Pt Level 4 (13509) Add On Problem Visit Only Diagnoses COPD (chronic obstructive pulmonary disease) J44.9 Dyspnea on exertion R06.09 Pulmonary nodule R91.1 Diastolic dysfunction I51.89 Daytime somnolence R40.0
--- OUTSIDE RECORDS SUMMARY | 2025-06-06 12:04 | XMS_ITS | Encounter Summary ---
Author Organization [facility] Address [address] [place] [address] [place] [address] Phone Care Team Providers Care Production Technologist Name Role Phone Arminda Cuellar Unavailable [phone] Nathan Valdez MD Unavailable [phone] Parisa Wheatley MD Unavailable + Isabela Diaz MD Unavailable [phone] Parisa Wheatley MD Primary Care Prov ider Parisa Wheatley MD Primary Care Prov ider Encounter Details Date Type Department Care Team (Late st Contact Info) Description 08/06/2018 Documentation [facility] Medicine Virtual Department [address] [place] [address] Zeeshan Short MD [address] [place] [address] [email or web address] Social History [...] on filedocumented in this encounter Care Teams Production Technologist Relationship Specialty Start Date End Date Parisa Wheatley MD [address] [place] [address] PCP - General 06/11/17 2 Parisa Wheatley MD [address] [place] [address] PCP - General Family Medicine 11/06/21 Arminda [place] [address] [place] [address] Historical LMR Provider 03/26/17 2 Nathan Valdez MD [address] [place] [address] Historical LMR Provider 03/26/17 Parisa Wheatley MD [address] [place] [address] Historical LMR Provider 03/26/17 Isabela Diaz MD [address] [place] [address] Orthopedics & Sports Medicine, [place] [address] Historical LMR Provider 03/26/17 documented as of this encounter Additional Source Comments The information contained in this document represents components of the legal health record. It is not the complete legal health record.[facility]
--- OUTSIDE RECORDS SUMMARY | 2025-06-06 12:04 | XMS_ITS | Encounter Summary ---
Author Organization [facility] Address [address] [facility] [address] [place] [address] Phone Care Team Providers Care Delivery Supervisor Name Role Phone Parisa Wheatley MD Unavailable + Parisa Wheatley MD Primary Care Prov ider Encounter Details Date Type Department Care Team (Latest Contact Info) Description 11/22/2021 Transcribe Orders Virtual Department [address] [place] [address] Chuck Black MD [address] [place] [phone] [email or web address] Dysphagia, unspecified [...] type documented in this encounter Care Teams Delivery Supervisor Relationship Specialty Start Date End Date Parisa Wheatley MD PCP - General Family Medicine 11/06/21 Parisa Wheatley MD Historical LMR Provider 03/26/17 documented as of this encounter Additional Source Comments The information contained in this document represents components of the legal health record. It is not the complete legal health record.[facility]
--- OUTSIDE RECORDS SUMMARY | 2025-06-06 12:04 | XMS_ITS | Encounter Summary ---
Author Organization [facility] Address [address] [place] [address] [address] [place] [address] Phone Care Team Providers Care Liquor Runner Name Role Phone Arminda Cuellar Unavailable [phone] Nathan Valdez MD Unavailable Parisa Wheatley MD Unavailable + Isabela Diaz MD Unavailable [phone] Parisa Wheatley MD Primary Care Prov ider Parisa Wheatley MD Primary Care Prov ider Encounter Details Date Type Department Care Team (Latest Contact Info) Description 11/05/2020 Transcribe Orders Virtual Department [address] [place] [address] Maritza Castro MD [address] [place] [address] [address] [place] [address] [email or web address] Cough (Primary Dx); Hoarseness; Dysphagia, pharyngoesophageal [...] the horizontal position with delayed emptying and acid-zhm-dexyy motion of the content. Small hiatal hernia [...] the horizontal position with delayed emptying and lhbf-xce-hrjpcqmvnmb of the content. Small hiatal hernia noted.. A 12 mm barium capsule passed easily into thestomach. IMPRESSION: 1.No focal stenosis or obstructing mass. 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 3.Small hiatal hernia. FLUOROSCOPY TIME: 2 min. 43 sec; 21 IMAGES/FRAMES 24.11 mGy / DAP 427.63 us Maritza Castro MD [facility] Final Resu lt documented in this encounter Visit Diagnoses Diagnosis Cough- Primary Hoarseness Dysphonia Dysphagia, pharyngoesophageal phase Cough Hoarseness Dysphonia Dysphagia, pharyngoesophageal phase documented in this encounter Care Teams Liquor Runner Relationship Specialty Start Date End Date Parisa Wheatley MD [address] [place] [address] PCP - General 06/11/17 2 Parisa Wheatley MD [address] [place] [address] PCP - General Family Medicine 11/06/21 Arminda [place] [address] [place] [address] Historical LMR Provider 03/26/17 2 Nathan Valdez MD [address] [place] [address] Historical LMR Provider 03/26/17 Parisa Wheatley MD [address] [place] [address] Historical LMR Provider 03/26/17 Isabela Diaz MD [address] [place] [address] Orthopedics & Sports Medicine, [facility] [place] [address] [email or web address] Historical LMR Provider 03/26/17 documented as of this encounter Additional Source Comments The information contained in this document represents components of the legal health record. It is not the complete legal health record.[facility]
--- OUTSIDE RECORDS SUMMARY | 2025-06-06 12:04 | XMS_ITS | Encounter Summary ---
Author Organization [facility] Address [address] [facility] [address] [place] [address] Phone Care Team Providers Care Lifestyle Coordinator Name Role Phone Parisa Wheatley MD Unavailable + Parisa Wheatley MD Primary Care Prov ider Parisa Wheatley MD Primary Care Prov ider Encounter Details Date Type Department Care Team (Latest Contact Info) Description 11/05/2021 Transcribe Orders Virtual Department 30 [place] [address] Alyssa Orozco NP [address] [place] [address] Pre-procedure lab exam (Primary Dx) Social History [...] (11/05/2021 3:44 PM EDT) COVID-19 Comment [id number] [facility] COVID Testing Status Specimen received in analyzing lab. Results should be available within [address] [facility] Other 11/05/2021 3:44 PM EDT 11/05/2021 6:09 PM EDT us Alyssa Orozco TICKETER LAB GENERAL ORDERABLES Fi nal Result [facility] [address] [place] [address] [address] documented in this encounter Visit Diagnoses Diagnosis Pre-procedure lab exam- Primary Pre-procedural laboratory examination documented in this encounter Care Teams Lifestyle Coordinator Relationship Specialty Start Date End Date Parisa Wheatley MD PCP - General 06/11/17 2 Parisa Wheatley MD PCP - General Family Medicine 11/06/21 Parisa Wheatley MD Historical LMR Provider 03/26/17 documented as of this encounter Additional Source Comments The information contained in this document represents components of the legal health record. It is not the complete legal health record.[facility]
--- OUTSIDE RECORDS SUMMARY | 2025-06-06 12:04 | XMS_ITS | Encounter Summary ---
Author Organization [facility] Address [address] [place] [address] [place] [address] Phone Care Team Providers Care Oncology Registrar Name Role Phone Arminda Cuellar Unavailable [phone] Nathan Valdez MD Unavailable [phone] Parisa Wheatley MD Unavailable + Isabela Diaz MD Unavailable [phone] Parisa Wheatley MD Primary Care Prov ider Parisa Wheatley MD Primary Care Prov ider Encounter Details Date Type Department Care Team (Late st Contact Info) Description 08/05/2018 Procedure Pass [facility], [address] [address] Social History Tobacco Use Types Packs/Day Years [...] on filedocumented in this encounter Care Teams Oncology Registrar Relationship Specialty Start Date End Date Parisa Wheatley MD [address] [place] [address] PCP - General 06/11/17 2 Parisa Wheatley MD [address] [place] [address] PCP - General Family Medicine 11/06/21 Arminda Cuellar PA [facility] [place] [address] Historical LMR Provider 03/26/17 2 Nathan Valdez MD [address] [place] [address] Historical LMR Provider 03/26/17 Parisa Wheatley MD [address] [place] [address] Historical LMR Provider 03/26/17 Isabela Diaz MD [address] [place] [address] Orthopedics [facility] Sports Medicine, [place] [address] Historical LMR Provider 03/26/17 documented as of this encounter Additional Source Comments The information contained in this document represents components of the legal health record. It is not the complete legal health record.[facility]
--- OUTSIDE RECORDS SUMMARY | 2025-06-06 12:04 | XMS_ITS | Encounter Summary ---
Author Organization [facility] Address [address] [facility] [address] [place] [address] Phone Care Team Providers Care Net Front End Developer Name Role Phone Parisa Wheatley MD Unavailable + Parisa Wheatley MD Primary Care Prov ider Encounter Details Date Type Department Care Team (Late st Contact Info) Description 02/07/2025 Transcribe Orders Virtual Department [address] [place] [address] Parisa Wheatley MD [address] [place] [phone] [email or web address] Asymptomatic menopausal state (Primary Dx) Social History [...] Primary documented in this encounter Care Teams Net Front End Developer Relationship Specialty Start Date End Date Parisa Wheatley MD PCP - General Family Medicine 11/06/21 Parisa Wheatley MD Historical LMR Provider 03/26/17 documented as of this encounter Additional Source Comments The information contained in this document represents components of the legal health record. It is not the complete legal health record.[facility]
--- OUTSIDE RECORDS SUMMARY | 2025-06-06 12:04 | XMS_ITS | Clinical Summary ---
Author Organization [facility] Address [address] [facility] [address] [place] [address] Phone Care Team Providers Care Regulatory Technician Name Role Phone Parisa Wheatley MD Unavailable [...] (08/06/2018 5:27 AM EST) HDL 83 mg/dL [facility] Comment: Interpretation <40 mg/dL: Low HDL cholesterol (major risk factor for CHD) Greater than or equal to 60 mg/dL: High HDL cholesterol ( negative risk factor for CHD) HDL - cholesterol is affected by a number of factors, e.g. smoking, excerise, hormones, sex and age. CHOLESTEROL 207 0 - 240 mg/dL [facility] TRIGLYCERIDES 59 30 - 160 mg/dL [facility] LDL 112 50 - 129 mg/dL [facility] Comment: LDL levels in terms of risk for coronary heart disease: <100 mg/dL: Optimal 100-129 mg/dL: Near or above optimal 130-159 mg/dL: Borderline high 160-189 mg/dL: High >190 mg/dL: Very High CARDIAC RISK RATIO 2.5(L) 3.3 - 4.4 C [facility] Blood 08/06/2018 5:27 AM EST 08/06/2018 5:41 AM EST us Sebastián Coburn MD LAB BLOOD BKR ORDERABLES Fi nal Result [address] [address] * Basic metabolic panel (08/05/2018 10:58 AM EST) SODIUM 143 133 - 146 mmol/L [facility] CHLORIDE 107 96 - 108 mmol/L [facility] POTASSIUM 4.3 3.3 - 5.1 mmol/L [facility] CO2 26 21 - 35 mmol/L [facility] BUN 14 6 - 19 mg/dL [facility] CREATININE 0.70 0.5 - 1.5 mg/dL [facility] GLUCOSE 97 70 - 99 mg/dL [facility] CALCIUM 9.8 8.4 - 10.3 mg/dL [facility] EGFR 87 >59 mL/min/1.7 3m2 [facility] Comment:If patient is black, multiply result by 1.159. Estimated glomerular filtration rate calculated using the CKD-EPI equation. ANION GAP 14 10 - 20 mmol/L [facility] Blood 08/05/2018 10:5 8 AM EST 08/05/2018 11:07 AM EST us Shade Cuevas MD LAB BLOOD BKR ORDERABLES Final Result [facility] [address] [place] [address] from Last 3 Months or Most Recently Relevant to Health Maintenance Insurance [employer] [employer] [place] BLUE REPLACEMENT MEDICARE PART A & B [facility] MEDICARE PPO BLUE REPLACEMENT MEDICARE PART A & B [facility] MEDICARE PPO BLUE REPLACEMENT MEDICARE PART A & [place] [address] [place] [address] MEDICARE PPO BLUE REPLACEMENT MEDICARE PART A [...] Advance Directives For more information, please contact: [phone] (9AM - 5PM Leah/[facility], Thursday-Thursday) * Full Code (Confirmed) (Latest Code Status on File) Date Activated Date Inactivated Comments 08/05/2018 2:54 PM 08/06/2018 4:57 PM Question Answer Comments Code Status Confirmed With: Patient Care Teams Regulatory Technician Relationship Specialty Start Date End Date Parisa Wheatley MD [email or web address] PCP - General Family Medicine 11/06/21 Parisa Wheatley MD [email or web address] Historical LMR Provider 03/26/17 Additional Source Comments The information contained in this document represents components of the legal health record. It is not the complete legal health record.[facility]
--- OUTSIDE RECORDS SUMMARY | 2025-06-06 12:04 | XMS_ITS | Data Portability ---
Author Organization [place] [facility], Allergy Address [address] [place] [phone] Care Team Providers Care Product Marketing Specialist Name Role Phone TATUM SUE Primary Care Provider Assessment No assessment recorded. Plan of Treatment Reminders Order Date Submit Date Provider Last Modified By Organization Details Last Modified Time Details Appointments None record ed. Lab None record ed. Referral None record ed. Procedures None record ed. Surgeries None record ed. Imaging None record ed. Medication Orders None record ed. Patient TargetsNo targets recorded. Patient Instructions Encounter Date Encounter Id Patient Instructions Last Modified By Organization Details Last Modified Time 08/25/2024 [id number] Patient concerne d about the frequency of infection. Seen with her daughter. She really has only had 1 infection in the last year and has been overall doing well. We discussed continuing saline solution and fluticasone nasal spray. She can use the azelastine as needed. She was concerned about steroids causing memory difficulties. We discussed that the fluticasone spray is minimally absorbed into her system and unlikely to cause any difficulties. Her inhaled corticosteroids are more systemically absorbed but neither 1 of these should be a problem. She just had cataract surgery so that is not a concern either. [email or web address] Not available 08/25/2024 11:36:43 Reason for Referral None Reported. Problems Name Problem SNOMED Code Status Onset Date Resolution Date Notes Provider Name and Address Organization Details Recorded Time Dysphagia 70493861 Active 2020 Dysphagia, pharyngoes ophageal phase; Note: Date Diagnosed: 10/10/2020 9:52 AM (R13.14) Not Available [facility] 02:54:36 Dysphonia 04880107 Active 05/05/ 2021 Hoarseness ; Note: Date Diagnosed: 10/10/2020 9:52 AM (R49.0) Not Available [facility] 02:54:38 Cough 67128036 Active 2020 Cough, unspecifie d; Note: Changed from R05 to R05.9 (02/03/2023 2:20 PM) , Date Diagnosed: 10/10/2020 9:52 AM (R05) Not Available [facility] 02:54:39 Posterior rhinorrhe a 74803759 Active 2022 Postnasal drip; Note: Date Diagnosed: 08/12/2022 4:31 PM (R09.82) Not Available [facility] 02:54:37 Nasal congestio n 27768126 Active 2022 Nasal congestion ; Note: Date Diagnosed: 08/12/2022 4:31 PM (R09.81) Not Available [facility] 02:54:39 Allergic rhinitis 29700538 Active 2022 Perennial allergic rhinitis; Note: Date Diagnosed: 10/07/2022 4:56 PM (J30.89) Not Available [facility] 02:54:39 Chronic pansinusi tis 41790727 Active 2022 Chronic pansinusit is; Note: Date Diagnosed: 10/07/2022 4:56 PM (J32.4) Not Available [facility] 02:54:36 Disorder of nasal sinus 0573191 Active 2022 Other specified disorders of nose and nasal sinuses; Note: Date Diagnosed: 03/06/2023 9:32 AM (J34.89) Not Available [facility] 4 02:54:39 Disorder of the nose 97974406 Active 2022 Other specified disorders of nose and nasal sinuses; Note: Date Diagnosed: 03/06/2023 9:32 AM (J34.89) Not Available [facility] 4 02:54:39 Gastroeso phageal reflux disease without esophagit is 622959265 Active 2023 Esophageal reflux NOS; Note: Date Diagnosed: 07/28/2023 9:57 AM (K21.9) Not Available [facility] 4 02:54:37 Chronic sinusitis 23392539 Active 2024 DENISSE BOYER MD [address] [facility] [place] [facility] [place], [place], [address] , [facility] 5 11:34:13 Chronic obstructi ve pulmonary disease 44849325 Active 2024 DENISSE BOYER MD [address] [facility] [place] [facility] [place] [place], [address] , [facility] - [facility] [place] 11:34:16 Deviated nasal septum 656227899 Active 2024 DENISSE BOYER MD [address] [facility] [place] [place], [address] , [place] [facility] 11:34:20 Problem Notes None recorded. Procedures Surgical History Date Name Laterality Status Provider Name and Address Organization Details Recorded Time 08/26/19 JMSNasal/Sinus Endoscopy completed DENISSE NARANJO MD [address] [facility] [place] [address], [place], [address], [place] [facility] 08/25/2024 11:33:55 Tonsillectomy completed Brittany Pike [place] - [facility] [place] 08/23/2024 11:24:36 Carpal tunnel surgery completed Brittany Pike [place] [facility] [place] 08/23/2024 11:24:42 extraction of cataract completed DENISSE NARANJO MD [address] [facility] [place] [facility] [place], [place], [address], [facility] - [facility] [place] 08/25/2024 11:34:06 Imaging Results None recorded. Procedure Notes None recorded. Medical Equipment None Reported. Allergies No known drug allergies Medications Name Sig Start Date Stop Date Status Note LastModified by Organization Details LastModified Time prednison e 10 mg tablet TAKE 4 TABLETS BY MOUTH DAILY FOR 3 DAYS THEN TAKE 3 TABLETS FOR 3 DAYS THEN TAKE 2 TABLETS FOR 3 DAYS THEN TAKE 1 TABLET FOR 3 DAYS 08/25 completed Not Available Not Available Not Available doxycycli ne hyclate 100 mg capsule by mouth 01/30 completed Medicati on ID: [id number] P rescribe d By Name: Lanny Gallardo nd Name: doxycycl ine hyclate Send Method: E-Prescr ibed Sub s Allowed: subs OK Speci al Instruct ion: Take 1 PO bid X 2 weeks Me dication GenericN lorena: doxycycl ine hyclate Not Available Not Available Not Available ipratropi um 0.5 mg-albute rol 3 mg (2.5 mg base)/3 mL nebulizat ion soln USE 3 ML VIA NEBULIZE R TWICE DAILY NEEDED FOR WHEEZING active Not Available Not Available No t Available citalopra m 40 mg tablet 08/25 completed Not Available Not Available Not Available Emilia Low Dose Aspirin 81 mg tablet,de layed release active Medicati on ID: [id number] B rand Name: Aspirin Low Dose Sen d Method: E-Prescr ibed Sub s Allowed: subs OK Medic ationGen ericName : Aspirin Low Dose Not Available Not Available Not Available ketorolac 0.5 % eye drops PLACE 1 DROP INTO SURGICAL EYE THREE TIMES DAILY FOR 3 WEEKS FOLLOWIN G CATARACT SURGERY 08/25 completed Not Available Not Available Not Available amlodipin e 10 mg tablet TAKE 1 TABLET DAILY active Not Available Not Available No t Available doxycycli ne monohydra te 100 mg capsule 1 capsule by mouth twice a day 08/25 completed Medicati on ID: [id number] D uration Value: 21 Brand Name: doxycycl ine monohydr ate Send Method: E-Prescr ibed Sub s Allowed: subs OK Medic ationGen ericName : doxycycl ine monohydr ate Not Available Not Available Not Available omeprazol e 20 mg capsule,d elayed release 08/25 completed Medicati on ID: [id number] B rand Name: omeprazo le Send Method: E-Prescr ibed Sub s Allowed: subs OK Medic ationGen ericName : omeprazo le Not Available Not Available Not Available budesonid e 0.5 mg/2 mL suspensio n for nebulizat ion Inhale 1 vial twice a day active Not Available Not Available No t Available aspirin 81 mg chewable tablet Chew 1 tablet every day by oral route. 08/23 completed Not Available Not Available Not Available monteluka st 10 mg tablet Take 1 tablet by mouth 08/25 completed Medicati on ID: [id number] B rand Name: monteluk ast Send Method: E-Prescr ibed Sub s Allowed: subs OK Speci al Instruct ion: Take 1 tablet by mouth every day in the evening Medicati onGeneri cName: monteluk ast Not Available Not Available Not Available azelastin e 137 mcg (0.1 %) nasal spray [place] 2 spray twice a day as directed active Not Available Not Available No t Available losartan 100 mg tablet TAKE 1 TABLET DAILY active Not Available Not Available No t Available fluticaso ne propionat e 50 mcg/actua tion nasal spray,vero pension 2 spray once a day 2022 active Medicati on ID: [id number] D uration Value: 90 Prescri bed By Name: JASON Sandhu nd Name: fluticas one propiona te Send Method: E-Prescr ibed Sub s Allowed: subs OK Medic ationGen ericName : fluticas one propiona te Not Available Not Available Not Available amoxicill in 875 mg-potass ium clavulana te 125 mg tablet 08/25 completed Not Available Not Available Not Available escitalop sylvester 5 mg tablet TAKE 1 TABLET DAILY FOR ANXIETY AND DEPRESSI ON (STOP CITALOPR AM) active Not Available Not Available No t Available prednison e Take 08/25 completed Medicati on ID: [id number] D uration Value: 10 Brand Name: predniso ne Send Method: E-Prescr ibed Sub s Allowed: subs OK Speci al Instruct ion: takes 3 tablets daily for 3 days, 2 tablets daily for 3 daysand 1 tablet daily for 3 days Med icationG enericNa me: predniso ne Not Available Not Available Not Available Vitamin D3 125 mcg (5,000 unit) tablet active Medicati on ID: [id number] B rand Name: Vitamin D3 Send Method: E-Prescr ibed Sub s Allowed: subs OK Medic ationGen ericName : Vitamin D3 Not Available Not Available Not Available Breo Ellipta 100 mcg-25 mcg/dose powder for inhalatio n INHALE 1 PUFF BY MOUTH DAILY active Not Available Not Available No t Available Breo Ellipta 200 mcg-25 mcg/dose powder for inhalatio n USE 1 INHALATI ON ORALLY DAILY active Not Available Not Available No t Available albuterol 90 mcg-budes onide 80 mcg/actua tion HFA aerosol inhaler Inhale by inhalati on route. active Not Available Not Available No t Available Vitals Date Recorded Body height Body mass index (BMI) Body weight Provider Name and Address Organization Details Last Updated DateTime 08/25/2024 152.4 cm 27 kg/m2 11282.75 g [facility] 08/25/2024 11:08:44 Social History None recorded. Functional Status None recorded. Mental Status None recorded. Family History Nothing Reported. Medical History Condition Response Arthritis Y Anxiety Y Hypertension Y Depression Y COPD Y Gynecological HistoryNo gynecological history recorded. Obstetrics History GPAL:G 0 P 0 0 0 0 Past Encounters Encounter ID Performer Location Encounter Start Date Encounter Closed Date Diagnosis/Indication Diagnosis SNOMED-CT Code Diagnosis ICD10 Code Diagnosis IMO Codes Diagnosis Note [id number] DENISSE BOYER MD [facility] [address] [address] 08/25/2024 10:53:25 08/25/2024 11:41:33 Chronic sinusitis 24604867 J32.9 Chronic ob structive pulmonary disease 52629053 J44.9 Deviated nasal septum 12 5629814 J34.2 Health Concerns Section Related Observation LastModified by Organization Detai ls LastModified Time None Recorded Concern Status LastModified by Organization Details LastModified Time None Recorded Advance Directives Directive None Recorded Payers Insurance Date Sequence Insurance Name Policy Number Policy Gates Covered Member ID Gates Member ID Guarantor Name 08/25/2024 1 [facility]: MEDICARE PPO BLUE (MEDICARE REPLACEMENT PPO) [id number] Lesly Ponce [id number] Lesly Ponce Notes Date Note Type Note Provider Name and Address Organization Details Recorded Time 08/25/2024 text/html ROS as noted in the HPI Chronic COPD with chronic SOB. Has intermittent sinus congestion usually at night maybe 3 times per month. 1 sinus infection in June and after 7 days she was treated with antibiotics. Symptoms resolved. That was the only course of antibiotics for the last year. Presently doing fluticasone only no recent use of azelastine. Followed by pulmonary for COPD and pulmonary nodule. History of hiatal hernia DENISSE NARANJO MD [address] [place] [address],[place] [address], [place], [address], [facility] - [facility] 08/25/2024 11:37:34 OBGyn Episode No OBEpisode recorded.
--- OUTSIDE RECORDS SUMMARY | 2025-06-06 12:04 | XMS_ITS | Encounter Summary ---
Author Organization [facility] Address [address] [place] [address] [place] [address] Phone Care Team Providers Care Chick Room Supervisor Name Role Phone Arminda Cuellar Unavailable [phone] Nathan Valdez MD Unavailable [phone] Parisa Wheatley MD Unavailable + Isabela Diaz MD Unavailable [phone] Parisa Wheatley MD Primary Care Prov ider Parisa Wheatley MD Primary Care Prov ider Encounter Details Date Type Department Care Team (Late st Contact Info) Description 08/05/2018 Procedure Pass [facility], [address] [address] Social History Tobacco Use Types Packs/Day Years [...] on filedocumented in this encounter Care Teams Chick Room Supervisor Relationship Specialty Start Date End Date Parisa Wheatley MD [address] [place] [address] PCP - General 06/11/17 2 Parisa Wheatley MD [address] [place] [address] PCP - General Family Medicine 11/06/21 Arminda Cuellar PA [facility] [place] [address] Historical LMR Provider 03/26/17 2 Nathan Valdez MD [address] [place] [address] Historical LMR Provider 03/26/17 Parisa Wheatley MD [address] [place] [address] Historical LMR Provider 03/26/17 Isabela Diaz MD [address] [place] [address] [facility], [place] [address] Historical LMR Provider 03/26/17 documented as of this encounter Additional Source Comments The information contained in this document represents components of the legal health record. It is not the complete legal health record.[facility]
--- OUTSIDE RECORDS SUMMARY | 2025-06-06 12:04 | XMS_ITS | Encounter Summary ---
Author Organization [facility] Address [address] [facility] [address] [place] [address] Phone Care Team Providers Care Mobile Therapist Name Role Phone Parisa Wheatley MD Unavailable + Parisa Wheatley MD Primary Care Prov ider Encounter Details Date Type Department Care Team (Late st Contact Info) Description 11/07/2021 Procedure Pass [facility] Admitting Dept Virtual Department [address] [place] [address] Social History Tobacco Use Types Packs/Day Years [...] on filedocumented in this encounter Care Teams Mobile Therapist Relationship Specialty Start Date End Date Parisa Wheatley MD PCP - General Family Medicine 11/06/21 Parisa Wheatley MD [email or web address] Historical LMR Provider 03/26/17 documented as of this encounter Additional Source Comments The information contained in this document represents components of the legal health record. It is not the complete legal health record.[facility]
== END 2025-06-06 10:13 | disposition home or self-care (01) ==
PROVIDERS: PCP Family Medicine; Visit Provider Nurse Practitioner Family
DX: J44.9 Chronic obstructive pulmonary disease, unspecified (principal); R06.09 Other forms of dyspnea; R91.1 Solitary pulmonary nodule; I51.89 Other ill-defined heart diseases; R40.0 Somnolence
CPT/HCPCS: 99214; G2211

== ENCOUNTER → 2025-06-06 09:27 | Outpatient (BNVA) | payer MEDICARE, SELFPAY | PROVIDERS: PCP Family Medicine; Visit Provider Nurse Practitioner Family | DX: J44.9 Chronic obstructive pulmonary disease, unspecified (principal); R91.1 Solitary pulmonary nodule; I51.89 Other ill-defined heart diseases; R06.09 Other forms of dyspnea; R40.0 Somnolence; R60.0 Localized edema; Z79.899 Other long term (current) drug therapy; Z87.891 Personal history of nicotine dependence | CPT/HCPCS: 99212 ==

== ENCOUNTER 2025-06-06 10:27 | Outpatient (REF) | payer MEDICARE, SELFPAY ==
[2025-06-06 16:09] LABS: D Dimer High Sensitivity 444 NG/ML
[2025-06-07 11:03] LABS: Anti Nuclear Antibody Screen NEGATIVE (NEGATIVE)
== END 2025-06-06 10:28 | disposition home or self-care (01) ==
LOC: HO.WFDLDS 10:27
PROVIDERS: Visit Provider Nurse Practitioner Family
DX: Z01.84 Encounter for antibody response examination (principal); M25.50 Pain in unspecified joint; R06.09 Other forms of dyspnea
CPT/HCPCS: 36415; 85379; 86038; 86200; 86431